=== PATIENT | male | born 1950 | race Caucasian/White ===

== ENCOUNTER → 2016-07-29 | Outpatient (CLI) | payer MEDICARE ==
--- NOTE | 2016-07-29 12:12 | NM ---
EXAMINATION TYPE: NM stress cardiolite complete DATE OF EXAM: 07/29/2016 12:04 PM COMPARISON: NONE HISTORY: Abnormal EKG, chest pain TECHNIQUE: After the intravenous administration of 10.3 mCi Tc 99m Sestamibi - Rest images obtained 0825 minutes post injection. The patient exercised using a FRANCISCO J protocol and 1 minute prior to pea k exercise was injected with 27.3 mCi Tc 99m Sestamibi - Stress images obtained 0957 minutes post inj ection. FINDINGS: Targeted heart rate was achieved during performance of the study. Review of stress and rest SPECT stephanie ges demonstrates no distinct perfusion abnormality. Gated analysis shows normal wall motion with an estimated left ventricular ejection fraction of 56 %. IMPRESSION: No scintigraphic evidence for reversible ischemia
--- NOTE | 2016-07-29 12:35 | EST ---
DATE OF SERVICE: 07/29/2016 AGE: 65Y SEX: M HT: 5'8" WT: 178 lbs. Protocol Holden: X Other: Cardiolite Stage: I Dur. of Exercise: 3 minutes *Heart Rate Blood Pressure *Rest: 74 Rest: 131/78 * *Max. Achieved: 152 Maximum BP: 157/78 85% PMHR: 132 100% PMHR: 155 *METS: 4.4 INDICATIONS: Abnormal EKG. MEDICATIONS: Baseline EKG revealed normal sinus rhythm without significant ST-T changes. Patient walked on it standard Holden protocol for 3 minutes, achieved a maximum heart rate of 152 beats per minute. Developed fatigue and shortness of breath, but did not have any angina or arrhythmia. His exercise capacity was limited. EKG did not reveal any ST segment changes to indicate ischemia. There was some baseline artifact noted. At 2 minutes into exercise, there were upsloping ST segment changes involving the inferolateral leads and possibility of this being ischemia cannot be totally excluded. FINAL IMPRESSION: Limited exercise capacity with a borderline positive stress test by EKG criteria without subjective symptoms of angina. The nuclear scan results, which are more pertinent, will be reported by the radiologist.
== END | disposition home or self-care (01) ==
LOC: RADNMMAIN 08:02
PROVIDERS: ATTEND Family Medicine
DX: R94.39 Abnormal result of other cardiovascular function study (principal); R94.31 Abnormal electrocardiogram [ECG] [EKG]; R07.9 Chest pain, unspecified
CPT/HCPCS: 93017; 78452; A9500

== ENCOUNTER → 2016-09-28 | Outpatient (CLI) | payer MEDICARE ==
--- NOTE | 2016-09-28 09:58 | CT ---
EXAMINATION TYPE: CT sinus wo con DATE OF EXAM: 09/28/2016 COMPARISON: NONE HISTORY: Sinusitis CT DLP: 673.7 mGycm. Automated Exposure Control for Dose Reduction was Utilized. TECHNIQUE: CT scan of the sinuses is performed without contrast, axial images are obtained, coronal r eformatted images are also reviewed. FINDINGS: There is a tiny mucous retention cyst or polyp within the right maxillary sinus. Very mild mucosal thickening involving the ethmoid air cells. Frontal sinus has a normal development and aerati on. There is minimal mucosal thickening involving the sphenoid sinus. The ostiomeatal complex is patent bilaterally on the coronal images. Visualized portion of mastoid air cells show no abnormal opacification. The globes are intact bilate rally. IMPRESSION: 1. Minimal Changes of chronic sinusitis.
== END | disposition home or self-care (01) ==
LOC: RADCTMAIN 08:25
PROVIDERS: ATTEND Otolaryngology
DX: J32.9 Chronic sinusitis, unspecified (principal)
CPT/HCPCS: 70486

== ENCOUNTER 2016-11-19 16:57 | Emergency (ER) | payer MEDICARE ==
[2016-11-19 17:14] VITALS: BP 137/95; PULSE 82; RESP 16; TEMP 97.6
--- NOTE | 2016-11-19 17:42 | ED ---
General Adult HPI - General Chief complaint: Headache Stated complaint: Headache Time Seen by Provider: 11/19/16 17:17 Source: patient, RN notes reviewed, old records reviewed Mode of arrival: ambulatory Limitations: no limitations - History of Present Illness Initial comments: patient 65-year-old male who presents emergency room today with chief complaint of headache on and off over the last 2 months. Patient does admit that he's been expressing some headaches to both left and right sides of his head. He states that they come and go. He states they are becoming more consistent. He states he has seen his ENT doctor thinking that they were related sinuses. States he was referred to neurology for these headaches. He states he is scheduled to have a MRI next week. He states that headaches seem to be worse this morning. He states around the left side of the temp oral area shot over to the right. He states he feels the pressure on top of his head. He states that him it feels like sinus type pressure. He denies any drainage or discharge. He denies any other complaints. States he has been to his eye doctor as well. Patient denies any recent fever, chills, shortness of breath, chest pain, back pain, abdominal pain, nausea or vomiting, numbness or tingling , dysuria or hematuria, constipation or diarrhea, visual changes, or any other complaints. - Related Data Home Medications Medication Instructions Recorded Confirmed Acetaminophen [Tylenol] 500 mg PO Q4-6H PRN 11/19/16 11/19/16 Naproxen 500 mg PO Q6HR 11/19/16 11/19/16 Allergies Allergy/AdvReac Type Severity Reaction Status Date / Time weeds Allergy Cough Uncoded 11/19/16 17:15 Review of Systems ROS Statement: Those systems with pertinent positive or pertinent negative responses have been documented in the HPI. ROS Other: All systems not noted in ROS Statement are negative. Past Medical History Past Medical History: No Reported History History of Any Multi-Drug Resistant Organisms: None Reported Past Surgical History: Tonsillectomy Past Psychological History: No Psychological Hx Reported Smoking Status: Never smoker Past Alcohol Use History: None Reported Past Drug Use History: None Reported General Exam - General Exam Comments Initial Comments: General: The patient is awake and alert, in no distress, and does not appear acutely ill. Eye: Pupils are equal, round and reactive to light, extra-ocular movements are intact. No nystagmus. There is normal conjunctiva bilaterally. No signs of icterus. Ears, nose, mouth and throat: There are moist mucous membranes and no oral lesions. Neck: The neck is supple, there is no tenderness or JVD. Cardiovascular: There is a regular rate and rhythm. No murmur, rub or gallop is appreciated. Respiratory: Lungs are clear to auscultation, respirations are non-labored, breath sounds are equal. No wheezes, stridor, rales, or rhonchi. Gastrointestinal: Soft, non-distended, non-tender abdomen without masses or organomegaly noted. There is no rebound or guarding present. No CVA tenderness. Bowel sounds are unremarkable. Musculoskeletal: Normal ROM, no tenderness. Strength 5/5. Sensation intact. Pulses equal bilaterally 2+. Neurological: A&O x 3. CN II-XII intact, There are no obvious motor or sensory deficits. Coordination appears grossly intact. Speech is normal. normal finger nose testing. Normal rapid alternating movements. Strength 5/5 bilaterally both upper and lower extremity's. Normal gait. Skin: Skin is warm and dry and no rashes or lesions are noted. Psychiatric: Cooperative, appropriate mood & affect, normal judgment. Limitations: no limitations Course Vital Signs 11/19/16 17:11 Temperature 97.6 F Pulse Rate 82 Respiratory 16 Rate Blood Pressure 137/95 O2 Sat by Pulse 97 Oximetry Medical Decision Making - Medical Decision Making Case discussed in detail with attending physician Dr. Conway. Patient reexamined at this time shows no signs of distress resting comfortably. patient was offered Toradol shot here in the emergency room he has declined. He states he will continue with his naproxen and also taking Tylenol at home.Patient's CT of the head is negative for any acute abnormalities results are discussed with the patient. Patient will be discharged home advised to follow-up with his neurologist. Disposition Clinical Impression: Headache Disposition: HOME SELF-CARE Condition: Good Instructions: Acute Headache (ED) Additional Instructions: Please use medication as discussed. Please follow-up with neurologist/family doctor in the next 2 days of symptoms have not improved. Please return to emergency room if the symptoms increase or worsen or for any other concerns. Referrals: Mónica Walls DO [Primary Care Provider] - 1-2 days Edgardo Downing MD [STAFF PHYSICIAN] - 1-2 days Time of Disposition: 19:03
--- NOTE | 2016-11-19 18:46 | CT ---
EXAMINATION TYPE: CT brain wo con DATE OF EXAM: 11/19/2016 HISTORY: Patient complains of chronic headache. CT DLP: 1103 mGycm. Automated Exposure Control for Dose Reduction was Utilized. TECHNIQUE: CT scan of the head is performed without contrast. COMPARISON: None. FINDINGS: There is no acute intracranial hemorrhage or midline shift identified. There is diffuse v entricular and sulcal prominence consistent with diffuse age-related cerebral atrophy. The globes ar e intact and the visualized sinuses are clear. IMPRESSION: No acute intracranial hemorrhage or midline shift. There is mild to moderate diffuse ag e-related cerebral atrophy noted.
== END 2016-11-19 19:14 | disposition home or self-care (01) ==
LOC: EC 16:57
DX: R51 Headache (principal); Z79.1 Long term (current) use of non-steroidal anti-inflammatories (NSAID); Z91.09 Other allergy status, other than to drugs and biological substances
CPT/HCPCS: 70450; 99284

== ENCOUNTER → 2016-11-23 | Outpatient (CLI) | payer MEDICARE ==
[2016-11-23 14:15] LABS: Blood Urea Nitrogen 15 mg/dL (9-20); Non-African American GFR(MDRD) >60 (>60 ml/min/1.73 sqM)
== END | disposition home or self-care (01) ==
LOC: LABWHC1 13:02
PROVIDERS: ATTEND Psychiatry & Neurology Neurology
DX: Z01.812 Encounter for preprocedural laboratory examination (principal); R51 Headache
CPT/HCPCS: 36415; 82565; 84520

== ENCOUNTER → 2016-11-28 | Outpatient (CLI) | payer MEDICARE ==
--- NOTE | 2016-11-28 14:44 | MR ---
EXAMINATION TYPE: MR brain wo/w con DATE OF EXAM: 11/28/2016 COMPARISON: CT brain dated 11/19/2016 HISTORY: Chronic headaches TECHNIQUE: Multiplanar, multisequence images of the brain and brainstem is performed without and with IV contras t, utilizing 7.5 mL intravenous Gadavist . FINDINGS: Diffusion weighted images demonstrate no evidence of a recent infarct or other diffusion ab normality. Few scattered T2/FLAIR hyperintense foci are seen within the subcortical white matter. No abnormal enhancement of these foci. There is no extra-axial fluid collection. The ventricular system and cisternal spaces are normal in size and appearance. The brain volume is age appropriate. Midline structures demonstrate normal morphology. The craniocervical junction appears within normal limits. Post contrast images demonstrate no abnormal enhancement. The dural venous sinuses appear pa tent. Minimal mucosal thickening is seen within the ethmoid sinuses. The remaining visualized sinuses are clear and the globes are intact. IMPRESSION: 1. Few nonspecific, nonenhancing white matter changes which may relate to sequela of microangiopathy or can be seen in migraines. No intracranial mass, enhancement, intracranial hemorrhage or acute terr itorial infarct. 2. Minimal ethmoidal paranasal sinus disease.
== END | disposition home or self-care (01) ==
LOC: RADMRIMAIN 12:43
PROVIDERS: ATTEND Psychiatry & Neurology Neurology
DX: R51 Headache (principal); Z91.09 Other allergy status, other than to drugs and biological substances
CPT/HCPCS: 70553; A9581

== ENCOUNTER → 2017-01-10 | Outpatient (CLI) | payer MEDICARE | END | disposition home or self-care (01) | LOC: LABWHC1 15:28 | PROVIDERS: ATTEND Otolaryngology | DX: R52 Pain, unspecified (principal) | CPT/HCPCS: 36415; 85652; 86038 ==

== ENCOUNTER → 2019-02-01 | Outpatient (CLI) | payer MEDICARE ==
--- NOTE | 2019-02-01 12:39 | CTL ---
EXAMINATION TYPE: CT Low Dose Lung DATE OF EXAM ORDERED: 02/01/2019 HISTORY: . Lung cancer screening CT DLP: [address] CTDI: 2.11 mGy Automated exposure control for dose reduction was used. SCREENING VISIT: COMPARISON: None TECHNIQUE: Low dose computed tomography scan was performed through the chest at 1 mm thick sections a nd reconstructed images in the coronal plane at [address] DIAGNOSTIC QUALITY: Satisfactory FINDINGS: LUNG NODULES: None. There is a 3 mm subpleural nodule right upper lobe. There is a 2 mm left upper lobe pulmonary nodule. Both have a benign appearance. LUNGS: Groundglass changes at the lung bases suggestive of atelectasis. There is diffuse emphysematous pierce es. No consolidative pneumonia. PLEURAL SPACE: No pleural calcification. There is pleural thickening. No evidence of pneumothorax. HEART: Coronary artery calcification noted. Atherosclerotic change aorta. OTHER FINDINGS: Hypodensity within the liver is too small to characterize. Scoliosis with severe degenerative disc di sease is seen. Multiple rib deformities are noted in the left which appear to be chronic. IMPRESSION: 1. Bilateral sub-5 mm pulmonary nodules. 2. Correlate for COPD 3. Coronary artery calcification. 4. Chronic rib deformities on the left. 5. indeterminate hepatic lesion. 6. Right thyroid nodule correlate with thyroid ultrasound. FOLLOW UP CT CHEST RECOMMENDATION: Follow-up in one year recommended. CT LUNG RAD: Lung-Rad 2 Benign Appearance or Behavior
== END | disposition home or self-care (01) ==
LOC: RADCTMAIN 11:22
PROVIDERS: ATTEND Family Medicine
DX: J44.9 Chronic obstructive pulmonary disease, unspecified (principal); R91.8 Other nonspecific abnormal finding of lung field; I25.10 Atherosclerotic heart disease of native coronary artery without angina pectoris; M95.4 Acquired deformity of chest and rib; Z87.891 Personal history of nicotine dependence

== ENCOUNTER → 2019-03-28 | Outpatient (CLI) | payer MEDICARE ==
--- NOTE | 2019-03-29 09:47 | NM ---
EXAMINATION TYPE: NM thyroid image w uptake DATE OF EXAM: 03/29/2019 COMPARISON: NONE HISTORY: Thyroid nodule TECHNIQUE: Thyroid iodine uptake is calculated and images performed after the oral administration of 315 uCi 1-123 Capsule. FINDINGS: There is a large cold defect involving the majority lower portion. Left thyroid gland is ho mogeneous. The 4 hour iodine uptake is calculated at 7.3% (normal range 8-14%). The 24-hour iodine u ptake is calculated at 13.3% (normal range 15-35%). IMPRESSION: 1. Large cold defect mid and lower pole right thyroid lobe recommend ultrasound. 2. Correlate for hypothyroidism
== END | disposition home or self-care (01) ==
LOC: RADNMMAIN 08:41
PROVIDERS: ATTEND Family Medicine
DX: E07.89 Other specified disorders of thyroid (principal); E04.1 Nontoxic single thyroid nodule
CPT/HCPCS: 78014; A9516

== ENCOUNTER 2019-04-05 09:00 | Day surgery (SDC) | payer MEDICARE ==
[2019-04-05 09:41] VITALS: TEMP 98.3
[2019-04-05 11:15] VITALS: BP 133/84; PULSE 75; RESP 16
--- NOTE | 2019-04-05 12:23 | US ---
ULTRASOUND GUIDED FNA THYROID BIOPSY: CLINICAL HISTORY: Right thyroid nodule FINDINGS: The procedure was explained to the patient. The risks, complications, benefits and alternatives were discussed and any questions were answered. Informed consent was obtained. Patient was placed supin e on the ultrasound table and prepped and draped in the usual sterile fashion. Utilizing a 25 gauge needle, five passes were made into the requested right thyroid nodule. Patient was stable throughout the procedure. Pathology is pending. All elements of maximal barrier technique were utilized. IMPRESSION: 1. Successful ultrasound guided FNA thyroid biopsy.
== END 2019-04-05 11:02 | disposition home or self-care (01) ==
LOC: RADPROMAIN 09:00
PROVIDERS: ATTEND Family Medicine
DX: E04.1 Nontoxic single thyroid nodule (principal)
CPT/HCPCS: 10005; 88173; 88305

== ENCOUNTER 2021-02-18 20:20 | Inpatient (IN) | payer MEDICARE ==
--- NOTE | 2021-02-18 20:46 | ED ---
General Adult HPI - General Chief complaint: Abdominal Pain Stated complaint: Constipation Time Seen by Provider: 02/18/21 20:33 Source: patient, family Mode of arrival: ambulatory Limitations: no limitations - History of Present Illness Initial comments: Dictation was produced using [employer] dictation software. please excuse any grammatical, word or spelling errors. Chief Complaint: 70-year-old male with past medical history of hypertension and hypercholesterolemia presents to the emergency department for abdominal pain presyncope History of Present Illness: Patient is a 70-year-old male he states that he didn't with constipation for the last 48 hours. Patient states he feels like it is hard stools. He tried to administer an enema to himself with no success or resolution of his symptoms. States it is constant achy suprapubic abdominal pain. He did have a bowel movement today. 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 He states that he was a little anxious today but also was so lightheaded that he was unable to stand for the whole program. Denies any fevers. No history of abdominal surgery. No numbness and paresthesias to the arms or legs. Patient rates his pain score as a 9 on a 10 scale. Denies any history of diverticulitis. No blood or mucus in his stool. Does complain of mild nausea. The ROS documented in this emergency department record has been reviewed and confirmed by me. Those systems with pertinent positive or negative responses have been documented in the HPI. All other systems are other negative and/or noncontributory. PHYSICAL EXAM: General Impression: Alert and oriented x3, not in acute distress HEENT: Normocephalic atraumatic, extra-ocular movements intact, pupils equal and reactive to light bilaterally, mucous membranes moist. Cardiovascular: Heart regular rate and rhythm Chest: Able to complete full sentences, no retractions, no tachypnea Abdomen: abdomen soft, palpatory tenderness to the suprapubic area, nontympanitic, non-distended, no organomegaly Musculoskeletal: Pulses present and equal in all extremities, no peripheral edema Motor: no focal deficits noted Neurological: CN II-XII grossly intact, no focal motor or sensory deficits noted Skin: Intact with no visualized rashes Psych: Normal affect and mood ED course: 70-year-old Male presents to the emergency department for abdominal pain. Vital signs upon arrival shows temperature 100.7, heart rate of 123, not hypotensive. Laboratory evaluation obtained. Leukocytosis 17.3 with neutrophils 60.0. [place] bolic panel shows mild acidosis. Lactic acidosis 3.3. Computed tomography scan shows sigmoid diverticulitis with associated 3 cm abscess. Case is discussed with general surgeon who is willing to be on consult. Patient admitted to Dr. Walls. Patient reevaluated at bedside. He is in stable medical condition. Patient having difficulty urinating. Barros catheter placed for urinary retention. EKG interpretation: Ventricular rate 119, sinus tachycardia,. Interval 120, QRS 86, QTC 599. No UT prolongation,, no ST or T-wave changes noted. - Related Data Home Medications Medication Instructions Recorded Confirmed Atorvastatin [Lipitor] 10 mg PO HS 03/19/19 02/18/21 Acetaminophen [Tylenol Extra 500 mg PO HS 02/18/21 02/18/21 Strength] Docusate Sodium [Dok] 100 mg PO HS 02/18/21 02/18/21 Allergies Allergy/AdvReac Type Severity Reaction Status Date / Time No Known Allergies Allergy Verified 02/18/21 22:15 Review of Systems ROS Statement: Those systems with pertinent positive or pertinent negative responses have been documented in the HPI. ROS Other: All systems not noted in ROS Statement are negative. Past Medical History Past Medical History: Hyperlipidemia, Thyroid Disorder History of Any Multi-Drug Resistant Organisms: None Reported Past Surgical History: Tonsillectomy Past Psychological History: No Psychological Hx Reported Smoking Status: Never smoker Past Alcohol Use History: Occasional Past Drug Use History: None Reported General Exam Limitations: no limitations Course Vital Signs 02/18/21 20:24 Temperature 100.7 F H Pulse Rate 123 H Respiratory 24 Rate Blood Pressure 119/59 O2 Sat by Pulse 94 L Oximetry Medical Decision Making - Lab Data Result diagrams: 02/18/21 21:10 02/18/21 21:10 Lab Results 02/18/21 02/18/21 02/18/21 Range/Units 21:10 21:10 21:10 WBC 17.3 H (3.8-10.6) k/uL RBC 4.67 (4.30-5.90) m/uL Hgb 15.5 (13.0-17.5) gm/dL Hct 45.4 (39.0-53.0) % MCV 97.2 (80.0-100.0) fL MCH 33.3 (25.0-35.0) pg MCHC 34.3 (31.0-37.0) g/dL RDW 12.7 (11.5-15.5) % Plt Count 199 (150-450) k/uL MPV 9.1 Neutrophils % 92 % Lymphocytes % 3 % Monocytes % 3 % Eosinophils % 1 % Basophils % 0 % Neutrophils # 16.0 H (1.3-7.7) k/uL Lymphocytes # 0.5 L (1.0-4.8) k/uL Monocytes # 0.6 (0-1.0) k/uL Eosinophils # 0.2 (0-0.7) k/uL Basophils # 0.0 (0-0.2) k/uL Sodium 136 L (137-145) mmol/L Potassium 4.2 (3.5-5.1) mmol/L Chloride 105 (98-107) mmol/L Carbon Dioxide 21 L (22-30) mmol/L Anion Gap 10 mmol/L BUN 12 (9-20) mg/dL Creatinine 0.67 (0.66-1.25) mg/dL Est GFR (CKD-EPI)AfAm >90 (>60 ml/min/1.73 sqM) Est GFR (CKD-EPI)NonAf >90 (>60 ml/min/1.73 sqM) Glucose 121 H (74-99) mg/dL Plasma Lactic Acid Manuel 3.3 H* (0.7-2.0) mmol/L Calcium 9.7 (8.4-10.2) mg/dL Magnesium 1.9 (1.6-2.3) mg/dL Total Bilirubin 0.8 (0.2-1.3) mg/dL AST 36 (17-59) U/L ALT 32 (4-49) U/L Alkaline Phosphatase 53 (38-126) U/L Total Protein 7.0 (6.3-8.2) g/dL Albumin 4.3 (3.5-5.0) g/dL Disposition Clinical Impression: Diverticulitis Disposition: ADMITTED IP TO THIS HOSP Condition: Fair Referrals: Mónica Walls DO [Primary Care Provider] - 1-2 days
[2021-02-18 21:21] LABS: Basophils % (A) 0 %; Eosinophils # (A) 0.2 k/uL (0-0.7); Eosinophils % (A) 1 %; HCT 45.4 % (39.0-53.0); HGB 15.5 gm/dL (13.0-17.5); Lymphocytes # (A) 0.5 k/uL (1.0-4.8); Lymphocytes % (A) 3 %; MCH 33.3 pg (25.0-35.0); MCHC 34.3 g/dL (31.0-37.0); MCV 97.2 fL (80.0-100.0); Mean Platelet Volume 9.1; Monocytes # (A) 0.6 k/uL (0-1.0); Monocytes % (A) 3 %; Neutrophils % (A) 92 %; Platelet Count 199 k/uL (150-450); RBC 4.67 m/uL (4.30-5.90); RDW 12.7 % (11.5-15.5); WBC 17.3 k/uL (3.8-10.6)
[2021-02-18 21:31] LABS: ALT 32 U/L (4-49); AST 36 U/L (17-59); African American GFR (CKD) >90 (>60 ml/min/1.73 sqM); Albumin 4.3 g/dL (3.5-5.0); Alkaline Phosphatase 53 U/L (38-126); Anion Gap 10 mmol/L; Blood Urea Nitrogen 12 mg/dL (9-20); Calcium 9.7 mg/dL (8.4-10.2); Carbon Dioxide 21 mmol/L (22-30); Chloride 105 mmol/L (98-107); Glucose 121 mg/dL (74-99); Magnesium 1.9 mg/dL (1.6-2.3); Non-African American GFR(CKD) >90 (>60 ml/min/1.73 sqM); Potassium 4.2 mmol/L (3.5-5.1); Sodium 136 mmol/L (137-145); Total Bilirubin 0.8 mg/dL (0.2-1.3)
[2021-02-18] MEDS ORDERED: MORPHINE SULFATE 4 MG/ML SYRINGE IV STA (22:38)
[2021-02-18] MEDS ORDERED: ACET/COD 300 MG/30 MG STARTER PACK 6 TAB BTL PO STA (22:41)
[2021-02-18] MEDS ORDERED: PIPERACILLIN-TAZOBACTAM 3.375 GM in SODIUM CHLORIDE 0.9% 100 ML IVPB STA (22:51)
[2021-02-18] MEDS ORDERED: SODIUM CHLORIDE 0.9% 1,000 ML IV STA (22:51)
--- NOTE | 2021-02-18 22:56 | CT ---
EXAMINATION TYPE: CT abdomen pelvis w con DATE OF EXAM: 02/18/2021 COMPARISON: None HISTORY: pain CT DLP: 1147.3 mGycm Automated exposure control for dose reduction was used. CONTRAST: Performed with IV Contrast, patient injected with 100 mL of Isovue 300. Images obtained from the diaphragm to the floor the pelvis with IV contrast. Lung bases are clear of consolidation. There is mild subsegmental atelectasis at the posterior lung b ases. Heart size is normal. There is no pericardial effusion. There is hiatal hernia. There are small hepatic cysts that measure up to 1 cm. Spleen is intact. There is no pancreatic mass. The stomach is otherwise intact. Gallbladder appears normal. The bile ducts are not dilated. There is no adrenal mass. Kidneys have normal size and contour. There is no hydronephrosis. Ureters a re not dilated. There is 3 cm cortical cyst in the anterior left kidney. There is no retroperitoneal adenopathy. Bladder distends smoothly. There is no inguinal hernia. There is mild prostate calcificat ion. There are numerous diverticula in the sigmoid colon. There is fat stranding and possible extralu clarence collection posterior to the distal sigmoid colon. There is no evidence of a bowel obstruction. Appendix not seen with certainty. No sign of thickened appendix. There is no evidence of free air. There is no ascites. There is no mesenteric edema. There is a moder ate lumbar levorotoscoliosis with subluxation deformity. No compression fracture. Bony pelvis is inta ct. IMPRESSION: Sigmoid diverticulosis with possible posterior peridiverticular abscess measuring 3 cm involving a di stal sigmoid colon on the posterior wall. There is some fat stranding and fluid in the pelvis. Hepatic and renal cysts. No renal obstruction. No significant constipation.
[2021-02-18] MEDS ORDERED: NALOXONE 0.4 MG/ML 1 ML VIAL IV PRN (23:09)
[2021-02-19] MEDS: SODIUM CHLORIDE 0.9% 1,000 ML IV SCH ×3 (00:15→16:06)
[2021-02-19] MEDS: KETOROLAC 30 MG/ML 1 ML VIAL IVP PRN ×2 (01:39→08:31)
[2021-02-19 02:41] LABS: Appearance,Urine Clear (Clear); Bilirubin,Urine Negative (Negative); Blood,Urine Negative (Negative); Color,Urine Yellow; Glucose,Urine (UA) Negative (Negative); Ketones,Urine Negative (Negative); Leukocyte Esterase,Urine Negative (Negative); Nitrite,Urine Negative (Negative); PH, Urine 7.5 (5.0-8.0); Protein,Urine Trace (Negative); Specific Gravity,Urine 1.041 (1.001-1.035); Urobilinogen,Urine <2.0 mg/dL (<2.0)
[2021-02-19] MEDS: PIPERACILLIN-TAZOBACTAM 3.375 GM in SODIUM CHLORIDE 0.9% 100 ML IVPB SCH ×2 (08:30→17:19)
--- NOTE | 2021-02-19 09:59 | P.GSCN ---
History of Present Illness Consult date: 02/19/21 Reason for Consult: Sigmoid diverticulitis History of present illness: 70-year-old male presents to the ER yesterday with complaints of lower abdominal pain that began 2 days before. Says he felt like he was constipated. Tried multiple stool softeners and even an enema with no improvement. Patient was found to have a white blood cell count of 17. His lactic acid is elevated and has remained elevated since his admission. Patient has been tachycardic and febrile. He is somewhat tachypneic and has a pulse ox 93% on 4 L. Covid negative. No history of similar events. Patient does have a history of a colon polyp found on his first colonoscopy at around age 55. No subsequent colonoscopies. This morning patient states he woke up with more pain after he took a short nap overnight. Pain now is in the right lower quadrant. The CAT scan was reviewed. CAT scan shows evidence of perforation distal sigmoid colon into the retroperitoneum but this is on the left side of his pelvis. Review of Systems The patient denies any acute changes in vision or hearing, no dysphagia or odynophagia, no chest pain or shortness of breath, no dysuria or hematuria, no headache, no runny nose, no rectal bleeding or melena, no unexplained weight loss Past Medical History Past Medical History: GERD/Reflux, Hyperlipidemia, Osteoarthritis (OA), Thyroid Disorder History of Any Multi-Drug Resistant Organisms: None Reported Past Surgical History: Tonsillectomy Past Psychological History: No Psychological Hx Reported Smoking Status: Former smoker Past Alcohol Use History: Occasional Past Drug Use History: None Reported - Past Family History Father Additional Family Medical History / Comment(s): leaky heart vavle Mother Family Medical History: Cancer Additional Family Medical History / Comment(s): lung ca. never smoked Medications and Allergies Home Medications Medication Instructions Recorded Confirmed Type Atorvastatin [Lipitor] 10 mg PO HS 03/19/19 02/18/21 History Acetaminophen [Tylenol Extra 500 mg PO HS 02/18/21 02/18/21 History Strength] Docusate Sodium [Dok] 100 mg PO HS 02/18/21 02/18/21 History Allergies Allergy/AdvReac Type Severity Reaction Status Date / Time No Known Allergies Allergy Verified 02/18/21 22:15 Surgical - Exam Vital Signs Temp Pulse Resp BP Pulse Ox 100.7 F H 123 H 24 119/59 94 L 02/18/21 20:24 02/18/21 20:24 02/18/21 20:24 02/18/21 20:24 02/18/21 20:24 Physical exam: General: Well-developed, well-nourished HEENT: Normocephalic, sclerae nonicteric Abdomen: Slightly distended, lower abdominal tenderness right lower quadrant with rebound and guarding present Extremities: No edema Neuro: Alert and oriented Results - Labs 02/18/21 21:10 02/18/21 21:10 Abnormal Lab Results - Last 24 Hours (Table) 02/18/21 02/18/21 02/18/21 Range/Units 21:10 21:10 21:10 WBC 17.3 H (3.8-10.6) k/uL Neutrophils # 16.0 H (1.3-7.7) k/uL Lymphocytes # 0.5 L (1.0-4.8) k/uL Sodium 136 L (137-145) mmol/L Carbon Dioxide 21 L (22-30) mmol/L Glucose 121 H (74-99) mg/dL Plasma Lactic Acid Manuel 3.3 H* (0.7-2.0) mmol/L Ur Specific [place] (1.001-1.035) Urine Protein (Negative) 02/19/21 02/19/21 02/19/21 Range/Units 00:27 02:25 04:51 WBC (3.8-10.6) k/uL Neutrophils # (1.3-7.7) k/uL Lymphocytes # (1.0-4.8) k/uL Sodium (137-145) mmol/L Carbon Dioxide (22-30) mmol/L Glucose (74-99) mg/dL Plasma Lactic Acid Manuel 2.7 H* 3.2 H* (0.7-2.0) mmol/L Ur Specific [place] 1.041 H (1.001-1.035) Urine Protein Trace H (Negative) Diabetes panel 02/18/21 Range/Units 21:10 Sodium 136 L (137-145) mmol/L Potassium 4.2 (3.5-5.1) mmol/L Chloride 105 (98-107) mmol/L Carbon Dioxide 21 L (22-30) mmol/L BUN 12 (9-20) mg/dL Creatinine 0.67 (0.66-1.25) mg/dL Glucose 121 H (74-99) mg/dL Calcium 9.7 (8.4-10.2) mg/dL AST 36 (17-59) U/L ALT 32 (4-49) U/L Alkaline Phosphatase 53 (38-126) U/L Total Protein 7.0 (6.3-8.2) g/dL Albumin 4.3 (3.5-5.0) g/dL Calcium panel 02/18/21 Range/Units 21:10 Calcium 9.7 (8.4-10.2) mg/dL Albumin 4.3 (3.5-5.0) g/dL Pituitary panel 02/18/21 Range/Units 21:10 Sodium 136 L (137-145) mmol/L Potassium 4.2 (3.5-5.1) mmol/L Chloride 105 (98-107) mmol/L Carbon Dioxide 21 L (22-30) mmol/L BUN 12 (9-20) mg/dL Creatinine 0.67 (0.66-1.25) mg/dL Glucose 121 H (74-99) mg/dL Calcium 9.7 (8.4-10.2) mg/dL Adrenal panel 02/18/21 Range/Units 21:10 Sodium 136 L (137-145) mmol/L Potassium 4.2 (3.5-5.1) mmol/L Chloride 105 (98-107) mmol/L Carbon Dioxide 21 L (22-30) mmol/L BUN 12 (9-20) mg/dL Creatinine 0.67 (0.66-1.25) mg/dL Glucose 121 H (74-99) mg/dL Calcium 9.7 (8.4-10.2) mg/dL Total Bilirubin 0.8 (0.2-1.3) mg/dL AST 36 (17-59) U/L ALT 32 (4-49) U/L Alkaline Phosphatase 53 (38-126) U/L Total Protein 7.0 (6.3-8.2) g/dL Albumin 4.3 (3.5-5.0) g/dL Assessment and Plan (1) Diverticulitis Narrative/Plan: 70-year-old male with perforated sigmoid diverticulitis. The patient appears ill and his exam suggests that there has been progression of his illness since the CAT scan was performed. Looking at the CAT scan he should not have any significant right lower quadrant pain but now his pain is centered there. I suspect a larger perforation has occurred. Patient remains tachycardic and febrile. He is now somewhat hypoxic. His white blood cell count again was elevated on admission repeat is pending. His lactic acid has not returned to normal. Patient meeting criteria for sepsis certainly at this time. Clinical scenario discussed in detail with the patient. Dr. Walls also present for much of the encounter. Recommend that we proceed with exploratory laparotomy with sigmoid colectomy and end colostomy at this time. Risks of bleeding, infection, progressive sepsis, abscess, bladder bowel and ureteral injury, hernia, ostomy complications, respiratory and cardiac complications. Patient understands and wishes to proceed. Current Visit: Yes Status: Acute Code(s): K57.92 - DVTRCLI OF INTEST, PART UNSP, W/O PERF OR ABSCESS W/O BLEED SNOMED Code(s): 977374985
[2021-02-19] MEDS ORDERED: IV FLUID CONTINUATION 800 ML IV ONE (10:37)
[2021-02-19] MEDS ORDERED: fentaNYL (PF) 50 MCG/ML 2 ML AMP IVP ONE ×2 (10:44→10:53)
[2021-02-19] MEDS ORDERED: ONDANSETRON 4 MG/2 ML VIAL IVP ONE (11:00)
[2021-02-19] MEDS ORDERED: metroNIDAZOLE-NS PMX 500 MG in SALINE 1 100ML.BAG IVPB STA (11:05)
[2021-02-19] MEDS ORDERED: HEPARIN SODIUM,PORCINE/PF 5,000 UNIT/0.5 ML SYRINGE SQ ONE (11:07)
[2021-02-19] MEDS ORDERED: HEPARIN SODIUM,PORCINE 5,000 UNIT/ML 1 ML VIAL SQ ONE (11:10)
[2021-02-19] MEDS ORDERED: GLYCOPYRROLATE 0.2 MG/ML 2 ML VIAL ONE (11:25)
[2021-02-19] MEDS ORDERED: SUCCINYLCHOLINE CHLORIDE 100 MG/5 ML SYR IV ONE (11:25)
[2021-02-19] MEDS ORDERED: HYDROmorphone (PF) 1 MG/ML ONE (11:25)
[2021-02-19] MEDS ORDERED: PHENYLEPHRINE-0.9% NACL SYG 1,000 MCG/10 ML SYRINGE ONE (11:25)
[2021-02-19] MEDS ORDERED: ROCURONIUM 10 MG/ML (5 ML VIAL) IV ONE (11:25)
[2021-02-19] MEDS ORDERED: LIDOCAINE 1% INJ 10MG/ML (20 ML MDV) ONE (11:25)
[2021-02-19] MEDS ORDERED: MIDAZOLAM 2 MG/2 ML VIAL ONE (11:25)
[2021-02-19] MEDS ORDERED: fentaNYL (PF) 50 MCG/ML 2 ML AMP ONE (11:25)
[2021-02-19] MEDS ORDERED: PROPOFOL 10 MG/ML 20 ML VIAL IV ONE (11:25)
[2021-02-19] MEDS ORDERED: NEOSTIGMINE 1 MG/ML 10 ML VIAL ONE (11:25)
[2021-02-19] MEDS ORDERED: LACTATED RINGERS 1,000 ML IV ONE ×4 (12:01→13:14)
--- NOTE | 2021-02-19 14:01 | P.OP ---
Date of Procedure: 02/19/21 Procedure(s) Performed: PREOPERATIVE DIAGNOSIS: Perforated sigmoid diverticulitis POSTOPERATIVE DIAGNOSIS: Same PROCEDURE: Sigmoid colectomy with end colostomy SURGEON: Carmita EBL: 50 mL ANESTHESIA: General COMPLICATIONS: None OPERATIVE PROCEDURE: Patient place in the operative table in the supine position. The patient was placed under general anesthesia. The abdomen was prepped and draped in usual sterile fashion. A vertical incision was made extending from the suprapubic region above the umbilicus. The fascia was divided as well. The patient had a fascial defect at the umbilicus that was incorporated into our incision and later closed with our fascial closure. Upon entrance into the peritoneal cavity purulent fluid was identified. As we inspected the pelvis the patient had a large amount of jose stool around the bowel loops. Much of the stool was manually evacuated. The Bookwalter ret ractor was utilized. The site of perforation was identified in the distal sigmoid colon. I divided the sigmoid colon proximal to this using a linear 75 stapler. The mesentery was divided at that time using the LigaSure device. Beyond the inflamed segment I divided the distal sigmoid colon using a green load contour stapler. 2 separate 0 Prolene sutures were used on the staple line for future identification. The sigmoid colon was then mobilized further by dividing a portion of mesentery proximally and also dividing the white line of [place]. Once I had enough length on the colon the abdomen was copiously irrigated with 4 L of saline. No further purulence was encountered at that time. A circular incision was made in the left midabdomen. Dissection through the subcutaneous fat and fascia took place using electrocautery. I bluntly entered the perineal cavity and this was further bluntly opened. The bowel was brought out through this defect in the left midabdomen. The midline fascia was then reapproximated using 2 separate double-stranded #1 PDS sutures. The subcutaneous tissues were irrigated. The subcutaneous tissues were closed using 3-0 Vicryl sutures. The skin was then loosely approximated using sonny. 4 separate sites were left open along the midline incision for Aquacel silver wick placement. The ostomy was then addressed. A portion of the pericolonic fat was removed using the LigaSure device. The staple line was then removed using electrocautery. The ostomy was then matured in a [place] fashion using interrupted 3-0 Vicryl sutures. An ostomy appliance was then applied. Sterile dressings were then applied to the midline incision. DISPOSITION: Stable to recovery room
[2021-02-19] MEDS: HYDROmorphone 0.5 MG/0.5 ML SYRINGE IVP ONE ×3 (14:15→14:54)
[2021-02-19] MEDS: ACETAMINOPHEN IV (For NPO) 1,000 MG in EMPTY BAG 1 BAG IVPB SCH ×2 (16:07→20:05)
[2021-02-19 16:22] LABS: HCT 42.9 % (39.0-53.0); HGB 14.3 gm/dL (13.0-17.5); MCH 33.9 pg (25.0-35.0); MCHC 33.3 g/dL (31.0-37.0); MCV 101.6 fL (80.0-100.0); Macrocytosis Slight; Mean Platelet Volume 8.8; Platelet Count 155 k/uL (150-450); RBC 4.22 m/uL (4.30-5.90); RDW 12.9 % (11.5-15.5); WBC 11.7 k/uL (3.8-10.6)
[2021-02-19 17:06] LABS: Band Neutrophils % 33 %; Lymphocytes # (M) 1.64 k/uL (1.0-4.8); Metamyelocytes # (M) 0.23 k/uL (0); Metamyelocytes % 2 %; Monocytes # (M) 0.35 k/uL (0-1.0); Neutrophils % (M) 48 %; Nucleated Red Blood Cells 0 /100 WBC (0-0); Total Cells Counted 200
[2021-02-19] MEDS: HEPARIN SODIUM,PORCINE/PF 5,000 UNIT/0.5 ML SYRINGE SQ SCH (17:19)
[2021-02-19] MEDS: FAMOTIDINE 20 MG/2 ML VIAL IV SCH (20:29)
--- NOTE | 2021-02-19 21:02 | P.HPIM ---
History of Present Illness H&P Date: 02/19/21 Chief Complaint: abdominal pain Jeremy Ridley is a 70 yo M with PMH of HLD, who presented to the ED complaining of 2 day history of worsening abdominal pain. He complains he had been constipated for a few days and noticing constant aching suprapubic pain. He tried laxatives and enema without any improvement so came to the ED. He denies chills, nausea, vomiting. On presentation he was tachycardic and febrile, WBC 17k, lactic 3.3, COVID negative. CT abd/pelvis with sigmoid diverticulitis and fluid pocket. Review of Systems All systems: negative Constitutional: Reports fever, Reports malaise, Denies chills Eyes: denies blurred vision, denies pain Ears, nose, mouth and throat: Denies headache, Denies sore throat Cardiovascular: Denies chest pain, Denies shortness of breath Respiratory: Denies cough Gastrointestinal: Reports abdominal pain, Reports constipation, Reports dyspepsi a, Denies diarrhea, Denies nausea, Denies vomiting Musculoskeletal: Denies myalgias Integumentary: Denies pruritus, Denies rash Neurological: Denies numbness, Denies weakness Psychiatric: Denies anxiety, Denies depression Endocrine: Denies fatigue, Denies weight change Past Medical History Past Medical History: GERD/Reflux, Hyperlipidemia, Osteoarthritis (OA), Thyroid Disorder History of Any Multi-Drug Resistant Organisms: None Reported Past Surgical History: Tonsillectomy Past Psychological History: No Psychological Hx Reported Smoking Status: Former smoker Past Alcohol Use History: Occasional Past Drug Use History: None Reported - Past Family History Father Additional Family Medical History / Comment(s): leaky heart vavle Mother Family Medical History: Cancer Additional Family Medical History / Comment(s): lung ca. never smoked Medications and Allergies Home Medications Medication Instructions Recorded Confirmed Type Atorvastatin [Lipitor] 10 mg PO HS 03/19/19 02/18/21 History Acetaminophen [Tylenol Extra 500 mg PO HS 02/18/21 02/18/21 History Strength] Docusate Sodium [Dok] 100 mg PO HS 02/18/21 02/18/21 History Allergies Allergy/AdvReac Type Severity Reaction Status Date / Time No Known Allergies Allergy Verified 02/19/21 10:36 Physical Exam Vitals: Vital Signs Temp Pulse Pulse Pulse Resp BP BP 12/03/21 20:33 98 F 95 18 96/66 02/19/21 16:21 89 18 87/60 02/19/21 15:32 84 16 92/67 02/19/21 15:17 88 16 100/63 02/19/21 15:01 90 16 86/58 02/19/21 14:46 106 H 16 89/60 02/19/21 14:30 108 H 16 87/61 02/19/21 14:16 102 H 16 84/74 02/19/21 14:01 102 H 16 86/60 02/19/21 13:45 103 H 16 80/61 02/19/21 13:37 99.1 F 107 H 16 103/69 02/19/21 11:02 108 H 87/57 02/19/21 10:45 108 H 18 93/57 02/19/21 10:34 98.7 F 107 H 20 89/50 02/19/21 08:20 99.6 F 124 H 20 102/67 02/19/21 02:50 100.5 F H 115 H 220 H 100/65 02/19/21 00:00 100.9 F H 119 H 20 100/65 02/18/21 23:30 118 H 20 103/65 Pulse Ox 02/19/21 20:33 95 02/19/21 16:21 93 L 02/19/21 15:32 97 02/19/21 15:17 97 02/19/21 15:01 97 02/19/21 14:46 97 02/19/21 14:30 97 02/19/21 14:16 97 02/19/21 14:01 97 02/19/21 13:45 97 02/19/21 13:37 96 02/19/21 11:02 95 02/19/21 10:45 96 02/19/21 10:34 97 02/19/21 08:20 93 L 02/19/21 02:50 99 02/19/21 00:00 99 02/18/21 23:30 98 Intake and Output 02/19/21 02/19/21 02/19/21 06:59 14:59 22:59 Intake Total 3360 Output Total 900 250 Balance -900 3110 Intake: IV 3100 Intake, IV Titration 260 Amount Sodium Chloride 0.9% 1, 260 000 ml @ 130 mls/hr IV . Q7H42M [facility] Rx#:[id number] Output: Urine 900 200 Estimated Blood Loss 50 Other: Voiding Method Indwelling Catheter Weight 81.647 kg 81.647 kg 81.647 kg General: well nourished, well developed, NAD. Vitals reviewed Eyes: PERRL, EOMI, conjunctiva normal HENT: normocephalic, mucus membranes moist Neck: supple, no JVD Lungs: normal respiratory effort, no wheezes or rales CV: Regular rate and rhythm, no murmur. Peripheral pulses 2+ Abdomen: soft, generalized tenderness to palpation, worst R sided Lymph: no cervical or axillary LAD Skin: warm and dry. Neuro: A&Ox3, normal mood and affect Results CBC & Chem 7: 02/19/21 15:25 02/18/21 21:10 Labs: Abnormal Lab Results - Last 24 Hours (Table) 02/18/21 02/18/21 02/18/21 Range/Units 21:10 21:10 21:10 WBC 17.3 H (3.8-10.6) k/uL RBC (4.30-5.90) m/uL MCV (80.0-100.0) fL Neutrophils # 16.0 H (1.3-7.7) k/uL Neutrophils # (Manual) (1.3-7.7) k/uL Lymphocytes # 0.5 L (1.0-4.8) k/uL Metamyelocytes # (Man) (0) k/uL Sodium 136 L (137-145) mmol/L Carbon Dioxide 21 L (22-30) mmol/L Glucose 121 H (74-99) mg/dL Plasma Lactic Acid Manuel 3.3 H* (0.7-2.0) mmol/L Ur Specific [place] (1.001-1.035) Urine Protein (Negative) 02/19/21 02/19/21 02/19/21 Range/Units 00:27 02:25 04:51 WBC (3.8-10.6) k/uL RBC (4.30-5.90) m/uL MCV (80.0-100.0) fL Neutrophils # (1.3-7.7) k/uL Neutrophils # (Manual) (1.3-7.7) k/uL Lymphocytes # (1.0-4.8) k/uL Metamyelocytes # (Man) (0) k/uL Sodium (137-145) mmol/L Carbon Dioxide (22-30) mmol/L Glucose (74-99) mg/dL Plasma Lactic Acid [place] 2.7 H* 3.2 H* (0.7-2.0) mmol/L Ur Specific [place] 1.041 H (1.001-1.035) Urine Protein Trace H (Negative) 02/19/21 Range/Units 15:25 WBC 11.7 H (3.8-10.6) k/uL RBC 4.22 L (4.30-5.90) m/uL MCV 101.6 H (80.0-100.0) fL Neutrophils # (1.3-7.7) k/uL Neutrophils # (Manual) 9.40 H (1.3-7.7) k/uL Lymphocytes # (1.0-4.8) k/uL Metamyelocytes # (Man) 0.23 H (0) k/uL Sodium (137-145) mmol/L Carbon Dioxide (22-30) mmol/L Glucose (74-99) mg/dL Plasma Lactic Acid Manuel (0.7-2.0) mmol/L Ur Specific [place] (1.001-1.035) Urine Protein (Negative) Thrombosis Risk Factor Assmnt - Choose All That Apply Each Risk Factor Represents 2 Points: Age 61-74 years, Major surgery Thrombosis Risk Factor Assessment Total Risk Factor Score: 4 Thrombosis Risk Factor Assessment Level: Moderate Risk Assessment and Plan Plan: 1. Sepsis secondary to perforated diverticulitis. Surgery consulted, scheduled for Wilburn procedure. Start zosyn. IV fluids. Follow labs
[2021-02-19] MEDS: HYDROmorphone 1 MG/ML 1 ML SYRINGE IVP PRN (23:32)
[2021-02-20] MEDS: SODIUM CHLORIDE 0.9% 1,000 ML IV SCH ×3 (00:22→15:56)
[2021-02-20] MEDS: PIPERACILLIN-TAZOBACTAM 3.375 GM in SODIUM CHLORIDE 0.9% 100 ML IVPB SCH ×3 (00:27→15:56)
[2021-02-20] MEDS: HEPARIN SODIUM,PORCINE/PF 5,000 UNIT/0.5 ML SYRINGE SQ SCH ×3 (00:28→15:56)
[2021-02-20] MEDS: ACETAMINOPHEN IV (For NPO) 1,000 MG in EMPTY BAG 1 BAG IVPB SCH ×2 (03:37→08:17)
[2021-02-20] MEDS: HYDROmorphone 1 MG/ML 1 ML SYRINGE IVP PRN ×3 (05:11→23:50)
[2021-02-20] MEDS: ONDANSETRON 4 MG/2 ML VIAL IVP PRN (05:32)
[2021-02-20] MEDS: FAMOTIDINE 20 MG/2 ML VIAL IV SCH (08:18)
[2021-02-20 09:45] LABS: Basophils % (A) 0 %; Eosinophils % (A) 0 %; HCT 40.8 % (39.0-53.0); HGB 13.4 gm/dL (13.0-17.5); Lymphocytes # (A) 0.7 k/uL (1.0-4.8); Lymphocytes % (A) 8 %; MCH 32.9 pg (25.0-35.0); MCHC 32.9 g/dL (31.0-37.0); Mean Platelet Volume 8.7; Monocytes # (A) 0.2 k/uL (0-1.0); Monocytes % (A) 2 %; Neutrophils # (A) 7.7 k/uL (1.3-7.7); Neutrophils % (A) 89 %; Platelet Count 136 k/uL (150-450); RBC 4.08 m/uL (4.30-5.90); RDW 12.4 % (11.5-15.5); WBC 8.8 k/uL (3.8-10.6)
[2021-02-20 10:07] LABS: African American GFR (CKD) >90 (>60 ml/min/1.73 sqM); Anion Gap 7 mmol/L; Blood Urea Nitrogen 15 mg/dL (9-20); Calcium 7.9 mg/dL (8.4-10.2); Carbon Dioxide 18 mmol/L (22-30); Chloride 111 mmol/L (98-107); Glucose 112 mg/dL (74-99); Non-African American GFR(CKD) >90 (>60 ml/min/1.73 sqM); Sodium 136 mmol/L (137-145)
--- NOTE | 2021-02-20 11:01 | P.PN ---
Progress Note - Text Progress Note Date: 02/20/21 Patient's postoperative day 1 from her procedure with end colostomy. He has some complaints of incisional pain. On exam vital signs are stable. Abdomen soft. Status post Harpal procedure for perforated diverticular history patient continued to have supportive care.
[2021-02-21] MEDS: FAMOTIDINE 20 MG/2 ML VIAL IV SCH ×3 (00:16→20:55)
[2021-02-21] MEDS: TEMAZEPAM 15 MG CAP PO PRN ×2 (00:16→20:55)
[2021-02-21] MEDS: PIPERACILLIN-TAZOBACTAM 3.375 GM in SODIUM CHLORIDE 0.9% 100 ML IVPB SCH ×3 (00:26→16:29)
[2021-02-21] MEDS: SODIUM CHLORIDE 0.9% 1,000 ML IV SCH ×4 (00:26→20:56)
[2021-02-21] MEDS: HEPARIN SODIUM,PORCINE/PF 5,000 UNIT/0.5 ML SYRINGE SQ SCH ×3 (00:26→16:28)
[2021-02-21] MEDS: HYDROmorphone 1 MG/ML 1 ML SYRINGE IVP PRN ×4 (02:32→22:01)
[2021-02-21] MEDS ORDERED: ACETAMINOPHEN TAB 325 MG TAB PO PRN (09:05)
--- NOTE | 2021-02-21 10:51 | P.PN ---
Progress Note - Text Progress Note Date: 02/21/21 Patient has complaints of incisional pain. He states he had a headache earlier and was given Tylenol. He states pain meds are working. On exam vital signs are stable. Abdomen soft. Colostomy has small amount of stool within it. I discussed the nursing staff his pain requirements. Apparently he has not taken any narcotic pain meds for several hours. The nurse will address his pain medication schedule. His wound has silver rope liver. He will have the top dressing change today.
[2021-02-21 10:56] LABS: Basophils % (A) 0 %; Eosinophils # (A) 0.2 k/uL (0-0.7); Eosinophils % (A) 2 %; HCT 38.6 % (39.0-53.0); HGB 13.3 gm/dL (13.0-17.5); Lymphocytes # (A) 0.8 k/uL (1.0-4.8); Lymphocytes % (A) 7 %; MCH 33.8 pg (25.0-35.0); MCHC 34.5 g/dL (31.0-37.0); Mean Platelet Volume 8.9; Monocytes # (A) 0.3 k/uL (0-1.0); Monocytes % (A) 3 %; Neutrophils # (A) 9.9 k/uL (1.3-7.7); Neutrophils % (A) 88 %; Platelet Count 155 k/uL (150-450); RBC 3.94 m/uL (4.30-5.90); RDW 12.3 % (11.5-15.5); WBC 11.3 k/uL (3.8-10.6)
--- NOTE | 2021-02-21 14:51 | P.PN ---
Subjective Progress Note Date: 02/20/21 Principal diagnosis: Sigmoid diverticulitis Jeremy Ridley is a 70 yo M with PMH of HLD, who presented to the ED complaining of 2 day history of worsening abdominal pain. He complains he had been constipated for a few days and noticing constant aching suprapubic pain. He tried laxatives and enema without any improvement so came to the ED. He denies chills, nausea, vomiting. On presentation he was tachycardic and febrile, WBC 17k, lactic 3.3, COVID negative. CT abd/pelvis with sigmoid diverticulitis and fluid pocket. 02/20/2021 Patient is status post sigmoid colectomy due to diverticulitis with perforation. Patient does have some abdominal discomfort. No nausea vomiting. Patient was started on clear liquid diet. Continue pain management. Patient has been afebrile. No complaints of chest pain or short of breath. Nausea improved. Laboratory data showed WBC 8.18:13.4 and platelets 136 Sodium 136 potassium 4.0 chloride 11 bicarb is 18, BUN 15 creatinine 0.69 and calcium 7.9 Current medications reviewed. Objective - Vital Signs Vital signs: Vital Signs Temp 98.2 F 02/20/21 08:33 Pulse 88 02/20/21 08:33 Resp 16 02/20/21 08:33 BP 100/62 02/20/21 08:33 Pulse Ox 94 L 02/20/21 08:33 Intake & Output 02/19/21 02/20/21 02/20/21 18:59 06:59 18:59 Intake Total 3360 2040 Output Total 250 500 Balance 3110 1540 Weight 81.647 kg Intake: IV 3100 Intake, IV Titration 260 1500 Amount ACETAMINOPHEN IV (For NPO 100 ) 1,000 mg In Empty Bag 1 bag @ 400 mls/hr IVPB Q6H [facility] Rx#:[id number] Piperacillin-Tazobactam 3 100 .375 gm In Sodium Chloride 0.9% 100 ml @ 25 mls/hr IVPB Q8HR [facility] Rx# :[id number] Sodium Chloride 0.9% 1, 260 1300 000 ml @ 130 mls/hr IV . Q7H42M [facility] Rx#:[id number] Oral 540 Output: Urine 200 500 Estimated Blood Loss 50 Other: Voiding Method Indwelling Catheter Indwelling Catheter - Exam General: well nourished, well developed, NAD. Vitals reviewed Eyes: PERRL, EOMI, conjunctiva normal HENT: normocephalic, mucus membranes moist Neck: supple, no JVD Lungs: normal respiratory effort, no wheezes or rales CV: Regular rate and rhythm, no murmur. Peripheral pulses 2+ Abdomen: soft, mild distention. Nontender. Left-sided colostomy bag in place. Lymph: no cervical or axillary LAD Skin: warm and dry. Neuro: A&Ox3, normal mood and affect - Labs CBC & Chem 7: 02/21/21 10:35 02/20/21 09:24 Labs: Abnormal Lab Results - Last 24 Hours (Table) 02/19/21 02/20/21 02/20/21 Range/Units 15:25 09:24 09:24 WBC 11.7 H (3.8-10.6) k/uL RBC 4.22 L 4.08 L (4.30-5.90) m/uL MCV 101.6 H (80.0-100.0) fL Plt Count 136 L (150-450) k/uL Neutrophils # (Manual) 9.40 H (1.3-7.7) k/uL Lymphocytes # 0.7 L (1.0-4.8) k/uL Metamyelocytes # (Man) 0.23 H (0) k/uL Sodium 136 L (137-145) mmol/L Chloride 111 H (98-107) mmol/L Carbon Dioxide 18 L (22-30) mmol/L Glucose 112 H (74-99) mg/dL Calcium 7.9 L (8.4-10.2) mg/dL Microbiology - Last 24 Hours (Table) 02/18/21 23:45 Blood Culture - Preliminary Blood No Growth after 24 hours 02/18/21 23:30 Blood Culture - Preliminary Blood No Growth after 24 hours Assessment and Plan Assessment: Perforated sigmoid diverticulitis with perforation. Status post sigmoid colectomy and colostomy bag on 02/19/2021. Sepsis secondary to above Hyperlipidemia Hypothyroidism Osteoarthritis GERD Previous history of smoking DVT prophylaxis. Plan: Patient be covered on IV hydration and also on clear liquid diet. Patient is currently on antibiotics Zosyn. Follow up culture reports. Continue with pain management. Gen. surgery is on board. GI and DVT prophylaxis. Time with Patient: Greater than 30
[2021-02-21] MEDS: ONDANSETRON 4 MG/2 ML VIAL IVP PRN (16:38)
--- NOTE | 2021-02-21 21:49 | P.PN ---
Subjective Progress Note Date: 02/21/21 Principal diagnosis: Sigmoid diverticulitis Jeremy Ridley is a 70 yo M with PMH of HLD, who presented to the ED complaining of 2 day history of worsening abdominal pain. He complains he had been constipated for a few days and noticing constant aching suprapubic pain. He tried laxatives and enema without any improvement so came to the ED. He denies chills, nausea, vomiting. On presentation he was tachycardic and febrile, WBC 17k, lactic 3.3, COVID negative. CT abd/pelvis with sigmoid diverticulitis and fluid pocket. 02/20/2021 Patient is status post sigmoid colectomy due to diverticulitis with perforation. Patient does have some abdominal discomfort. No nausea vomiting. Patient was started on clear liquid diet. Continue pain management. Patient has been afebrile. No complaints of chest pain or short of breath. Nausea improved. Laboratory data showed WBC 8.18:13.4 and platelets 136 Sodium 136 potassium 4.0 chloride 11 bicarb is 18, BUN 15 creatinine 0.69 and calcium 7.9 02/21/2021 Patient is currently resting in bed. Complains of pain at the surgical site. N o fever no chills. Dressing changes being done today. Denies any complaints of chest pain or shortness of breath. No nausea or vomiting. Patient is tolerating liquid diet. No output from the colostomy bag today morning. Laboratory data showed WBC 11.3 hemoglobin 13.3 and platelets 155 General surgery is on board. Current medications reviewed. Objective - Vital Signs Vital signs: Vital Signs Temp 99.3 F 02/21/21 08:47 Pulse 95 02/21/21 08:47 Resp 19 02/21/21 08:47 BP 132/83 02/21/21 08:47 Pulse Ox 90 L 02/21/21 08:47 Intake & Output 02/20/21 02/21/21 02/21/21 18:59 06:59 18:59 Output Total 800 Balance -800 Output: Urine 800 Other: Voiding Method Indwelling Catheter Indwelling Catheter - Exam General: well nourished, well developed, NAD. Vitals reviewed Eyes: PERRL, EOMI, conjunctiva normal HENT: normocephalic, mucus membranes moist Neck: supple, no JVD Lungs: normal respiratory effort, no wheezes or rales CV: Regular rate and rhythm, no murmur. Peripheral pulses 2+ Abdomen: soft, mild distention. Nontender. Left-sided colostomy bag in place. Lymph: no cervical or axillary LAD Skin: warm and dry. Neuro: A&Ox3, normal mood and affect - Labs CBC & Chem 7: 02/21/21 10:35 02/20/21 09:24 Labs: Abnormal Lab Results - Last 24 Hours (Table) 02/21/21 Range/Units 10:35 WBC 11.3 H (3.8-10.6) k/uL RBC 3.94 L (4.30-5.90) m/uL Hct 38.6 L (39.0-53.0) % Neutrophils # 9.9 H (1.3-7.7) k/uL Lymphocytes # 0.8 L (1.0-4.8) k/uL Microbiology - Last 24 Hours (Table) 02/18/21 23:45 Blood Culture - Preliminary Blood No Growth after 48 hours 02/18/21 23:30 Blood Culture - Preliminary Blood No Growth after 48 hours Assessment and Plan Assessment: Perforated sigmoid diverticulitis with perforation. Status post sigmoid colectomy and colostomy bag on 02/19/2021. Sepsis secondary to above Hyperlipidemia Hypothyroidism Osteoarthritis GERD Previous history of smoking DVT prophylaxis. Plan: Patient be covered on IV hydration and also on clear liquid diet. Patient is currently on antibiotics Zosyn. Follow up culture reports. Continue with pain management. Gen. surgery is on board. GI and DVT prophylaxis. Time with Patient: Greater than 30
[2021-02-22] MEDS: HEPARIN SODIUM,PORCINE/PF 5,000 UNIT/0.5 ML SYRINGE SQ SCH ×4 (00:20→20:55)
[2021-02-22] MEDS: PIPERACILLIN-TAZOBACTAM 3.375 GM in SODIUM CHLORIDE 0.9% 100 ML IVPB SCH ×3 (00:20→15:57)
[2021-02-22] MEDS: HYDROmorphone 1 MG/ML 1 ML SYRINGE IVP PRN ×3 (04:03→15:57)
[2021-02-22] MEDS: ONDANSETRON 4 MG/2 ML VIAL IVP PRN (04:08)
[2021-02-22] MEDS: SODIUM CHLORIDE 0.9% 1,000 ML IV SCH ×3 (06:13→21:09)
[2021-02-22 08:33] LABS: Basophils % (A) 0 %; Eosinophils # (A) 0.2 k/uL (0-0.7); Eosinophils % (A) 1 %; HCT 41.4 % (39.0-53.0); HGB 13.7 gm/dL (13.0-17.5); Lymphocytes # (A) 1.3 k/uL (1.0-4.8); Lymphocytes % (A) 9 %; MCH 32.6 pg (25.0-35.0); MCHC 33.2 g/dL (31.0-37.0); MCV 98.1 fL (80.0-100.0); Mean Platelet Volume 8.5; Monocytes # (A) 0.5 k/uL (0-1.0); Monocytes % (A) 4 %; Neutrophils # (A) 11.5 k/uL (1.3-7.7); Neutrophils % (A) 84 %; Platelet Count 218 k/uL (150-450); RBC 4.22 m/uL (4.30-5.90); RDW 12.2 % (11.5-15.5); WBC 13.6 k/uL (3.8-10.6)
[2021-02-22 08:48] LABS: African American GFR (CKD) >90 (>60 ml/min/1.73 sqM); Anion Gap 8 mmol/L; Blood Urea Nitrogen 17 mg/dL (9-20); Calcium 8.1 mg/dL (8.4-10.2); Carbon Dioxide 21 mmol/L (22-30); Chloride 112 mmol/L (98-107); Glucose 93 mg/dL (74-99); Non-African American GFR(CKD) >90 (>60 ml/min/1.73 sqM); Potassium 3.8 mmol/L (3.5-5.1); Sodium 141 mmol/L (137-145)
[2021-02-22] MEDS: FAMOTIDINE 20 MG/2 ML VIAL IV SCH ×2 (09:04→20:54)
--- NOTE | 2021-02-22 11:05 | P.PN ---
<Ely Rice - Last Filed: 02/22/21 10:58> Subjective Progress Note Date: 02/22/21 CHIEF COMPLAINT: Perforated sigmoid diverticulitis HISTORY OF PRESENT ILLNESS: Patient is postop Day #3 status post sigmoid colectomy with end colostomy for perforated sigmoid diverticulitis. Patient is complaining of abdominal pain. He does rate his pain about a 9 out of 10. His abdomen is distended. No function per ostomy. Denies any nausea or vomiting. Afebrile. WBC is up from 11.3-13.6 PHYSICAL EXAM: VITAL SIGNS: Reviewed. GENERAL: Well-developed in no acute distress. HEENT: No sclera icterus. Extraocular movements grossly intact. Moist buccal mucosa. Head is atraumatic, normocephalic. ABDOMEN: Distended. Tender with palpation. Incision site clean dry and intact with 3 Sharan. Ostomy bag with serosanguineous fluid NEUROLOGIC: Alert and oriented. Cranial nerves II through XII grossly intact. ASSESSMENT: 1. Perforated sigmoid diverticulitis status post sigmoid colectomy with end colostomy 2. Probable postoperative ileus PLAN: -Add Reglan 10 mg IV every 6 -Add Toradol 50 mg IV every 6 for pain -Encourage patient to ambulate -Encourage patient to use incentive spirometer -Increase IV fluids normal saline 75 mL an hour -Change abdominal sharan every 2 days -Further recommendations forthcoming per surgeon -GI prophylaxis Pepcid and DVT prophylaxis subcu heparin Physician Combine Inspector note has been reviewed by physician. Signing provider agrees with the documented findings, assessment, and plan of care. Objective - Vital Signs Vital signs: Vital Signs Temp 97.9 F 02/22/21 00:26 Pulse 86 02/22/21 00:26 Resp 18 02/22/21 00:26 BP 137/87 02/22/21 00:26 Pulse Ox 94 L 02/22/21 00:26 Intake & Output 02/21/21 02/22/21 02/22/21 18:59 06:59 18:59 Intake Total 118 Output Total 1100 500 0 Balance -1100 -500 118 Intake: Oral 118 Output: Urine 1100 500 Stool 0 0 Other: Voiding Method Indwelling Catheter Indwelling Catheter - Labs CBC & Chem 7: 02/22/21 07:49 02/22/21 07:49 Labs: Abnormal Lab Results - Last 24 Hours (Table) 02/22/21 02/22/21 Range/Units 07:49 07:49 WBC 13.6 H (3.8-10.6) k/uL RBC 4.22 L (4.30-5.90) m/uL Neutrophils # 11.5 H (1.3-7.7) k/uL Chloride 112 H (98-107) mmol/L Carbon Dioxide 21 L (22-30) mmol/L Calcium 8.1 L (8.4-10.2) mg/dL Microbiology - Last 24 Hours (Table) 02/18/21 23:30 Blood Culture - Preliminary Blood No Growth after 72 hours 02/18/21 23:45 Blood Culture - Preliminary Blood No Growth after 72 hours <Claus Vizcarra - Last Filed: 02/22/21 11:12> Subjective As above. Patient with increased abdominal bloating today. Feels nauseated. No ostomy function. On exam the patient is distended with mild diffuse tenderness. Suspect adynamic ileus. Will have nasogastric tube placed. Add Toradol for pain control. Keep nothing by mouth. Objective - Vital Signs Vital signs: Vital Signs Temp 97.9 F 02/22/21 00:26 Pulse 86 02/22/21 00:26 Resp 18 02/22/21 00:26 BP 137/87 02/22/21 00:26 Pulse Ox 94 L 02/22/21 00:26 Intake & Output 02/21/21 02/22/21 02/22/21 18:59 06:59 18:59 Intake Total 118 Output Total 1100 500 0 Balance -1100 -500 118 Intake: Oral 118 Output: Urine 1100 500 Stool 0 0 Other: Voiding Method Indwelling Catheter Indwelling Catheter - Labs CBC & Chem 7: 02/22/21 07:49 02/22/21 07:49 Labs: Abnormal Lab Results - Last 24 Hours (Table) 02/22/21 02/22/21 Range/Units 07:49 07:49 WBC 13.6 H (3.8-10.6) k/uL RBC 4.22 L (4.30-5.90) m/uL Neutrophils # 11.5 H (1.3-7.7) k/uL Chloride 112 H (98-107) mmol/L Carbon Dioxide 21 L (22-30) mmol/L Calcium 8.1 L (8.4-10.2) mg/dL Microbiology - Last 24 Hours (Table) 02/18/21 23:30 Blood Culture - Preliminary Blood No Growth after 72 hours 02/18/21 23:45 Blood Culture - Preliminary Blood No Growth after 72 hours Assessment and Plan (1) Diverticulitis Current Visit: Yes Status: Acute Code(s): K57.92 - DVTRCLI OF INTEST, PART UNSP, W/O PERF OR ABSCESS W/O BLEED SNOMED Code(s): 301064972
[2021-02-22] MEDS: METOCLOPRAMIDE 5 MG/ML 2 ML VIAL IVP SCH ×3 (13:27→20:54)
[2021-02-22] MEDS: KETOROLAC 30 MG/ML 1 ML VIAL IVP SCH ×3 (13:28→20:53)
--- NOTE | 2021-02-22 14:14 | XR ---
EXAMINATION TYPE: XR chest 1V portable DATE OF EXAM: 02/22/2021 COMPARISON: Chest CT 02/01/2019 HISTORY: NG tube placement TECHNIQUE: Single frontal view of the chest is obtained. FINDINGS: There is an underlying scoliosis. Right hemidiaphragm remains elevated. NG tube is in plac e with the distal tip overlying the stomach. Patchy basilar density is noted. There is no evident pne umothorax or pleural effusion. Cardiac mediastinal silhouette is likely stable. IMPRESSION: Basilar atelectasis. Correlate to exclude pneumonia. Follow-up PA and lateral chest x-ra y may be of benefit. NG tube as described.
--- NOTE | 2021-02-22 14:24 | XR ---
EXAMINATION TYPE: XR chest 1V portable DATE OF EXAM: 02/22/2021 COMPARISON: Chest x-ray 02/22/2021 and earlier time HISTORY: NG tube placement TECHNIQUE: frontal view of the chest is obtained on 2 images. FINDINGS: NG tube shows the distal tip overlying the stomach. No other significant interval change. IMPRESSION: NG tube overlying the stomach.
--- NOTE | 2021-02-22 15:48 | CDI ---
Documentation Clarification Form Date: 02/22/2021 03:41:26 PM From: Rossi Jean CCS, CCDS Admit Date: 02/18/2021 11:09:00 PM Patient Name: Jeremy Ridley Visit Number: [id number] Discharge Date: ATTENTION: The Clinical Documentation Specialists (CDI) and [facility] Coding Staff appreciate your assistance in clarifying documentation. Please respond to the clarification below the line at the bottom and electronically sign. The CDI & [facility] Coding staff will review the response and follow-up if needed. Please note: Queries are made part of the Legal Health Record. If you have any questions, please contact the author of this message via ITS. Dr. Claus Vizcarra: Probable postoperative Ileus is documented in the 02/22 Surgery Progress Note without further specificity. Additional clarification is requested regarding the relationship, if any, that exists between the diagnosis and the procedure. Patients Admitting Diagnosis per the 02/19 OR note: Perforated Sigmoid Diverticulitis Post-Operative Diagnosis: same. Procedure performed 02/19: Sigmoid Colectomy with End Colostomy History/Risk Factors per the 02/19 H/P: GERD, Hypertension, Hyperlipidemia, Osteoarthritis, Hypothyroidism, Former smoker. Clinical Indicators: Presented to the ED on 02/18 with Abdominal pain & constipation. Admit with Diverticulitis Treatment 02/22 Postoperatively: Add IV Reglan q6, Add IV Toradol q6, Encourage ambulation, Encourage Incentive Spirometer, Increase IV fluids to normal saline 75 mL/Hr. What relationship, if any, exists between the diagnosis of Probable Postoperative Ileus and the procedure: [ ] Postoperative Ileus is a complication of surgical procedure [ x ] Postoperative Ileus is an expected outcome of the surgical procedure [ ] Postoperative Ileus is related to patients co-morbid condition(s), please specify: & not a complication of the procedure [ ] Postoperative Ileus has been ruled out [ ] Other please specify: [ ] Unable to determine (Template Last Revised: May 2020) MTDD
--- NOTE | 2021-02-22 17:10 | P.PN ---
Subjective Progress Note Date: 02/22/21 Jeremy Ridley is a 70 yo M with PMH of HLD, who presented to the ED complaining of 2 day history of worsening abdominal pain. He complains he had been constipated for a few days and noticing constant aching suprapubic pain. He tried laxatives and enema without any improvement so came to the ED. He denies c hills, nausea, vomiting. On presentation he was tachycardic and febrile, WBC 17k, lactic 3.3, COVID negative. CT abd/pelvis with sigmoid diverticulitis and fluid pocket. 02/22/2021 postop day #3 sigmoid colectomy with end colostomy for perforated sigmoid diverticulitis. complains of abdominal pain. Nauseated on clear liquid diet. Minimal drainage from ostomy. Afebrile, T-max 99.3, WBC increased to 13.6. Preliminary blood cultures reporting no growth at 72 hours. Sodium normalized .Renal function stable. Maintaining O2 sats in the 90s on 3 L nasal cannula. Objective - Vital Signs Vital signs: Vital Signs Temp 97.9 F 02/22/21 00:26 Pulse 86 02/22/21 00:26 Resp 18 02/22/21 00:26 BP 137/87 02/22/21 00:26 Pulse Ox 94 L 02/22/21 00:26 Intake & Output 02/21/21 02/22/21 02/22/21 18:59 06:59 18:59 Intake Total 118 Output Total 1100 500 0 Balance -1100 -500 118 Intake: Oral 118 Output: Urine 1100 500 Stool 0 0 Other: Voiding Method Indwelling Catheter Indwelling Catheter - Exam General: Sitting up in bed, no acute distress. NAD. Vitals reviewed Eyes: PERRL, EOMI, conjunctiva normal HENT: normocephalic, mucus membranes moist Neck: supple, no JVD Lungs: normal respiratory effort, no wheezes or rales CV: Regular rate and rhythm, no murmur. Peripheral pulses 2+ Abdomen: soft, distended, status post surgery-tender, ostomy with minimal serosanguineous drainage Skin: warm and dry. Neuro: A&Ox3, normal mood and affect - Labs CBC & Chem 7: 02/22/21 07:49 02/22/21 07:49 Labs: Abnormal Lab Results - Last 24 Hours (Table) 02/22/21 02/22/21 Range/Units 07:49 07:49 WBC 13.6 H (3.8-10.6) k/uL RBC 4.22 L (4.30-5.90) m/uL Neutrophils # 11.5 H (1.3-7.7) k/uL Chloride 112 H (98-107) mmol/L Carbon Dioxide 21 L (22-30) mmol/L Calcium 8.1 L (8.4-10.2) mg/dL Microbiology - Last 24 Hours (Table) 02/18/21 23:30 Blood Culture - Preliminary Blood No Growth after 72 hours 02/18/21 23:45 Blood Culture - Preliminary Blood No Growth after 72 hours Assessment and Plan Assessment: Sepsis secondary to perforated diverticulitis. Status post sigmoid colectomy with end colostomy Postoperative ileus, probable Acute hypoxic respiratory failure, postop Basilar atelectasis Plan: Continue on current medication regime ,monitoring and symptomatic treatment. Chest x-ray ordered. IV fluid hydration. Antiemetics with Reglan added to regimen. Diet advancement as per surgery. Increase ambulation as tolerated. Aggressive pulmonary toileting with incentive spirometer reinforced. The impression and plan of care has been dictated as directed. : I performed a history and examination of this patient, discussed the same with the dictator. I agree with the dictator's note ,documented as a scribe. Any additional findings or plans will be noted.
[2021-02-22] MEDS: ACETAMINOPHEN IV (For NPO) 1,000 MG in EMPTY BAG 1 BAG IVPB SCH (20:55)
[2021-02-23] MEDS: HYDROmorphone 1 MG/ML 1 ML SYRINGE IVP PRN (00:45)
[2021-02-23] MEDS: PIPERACILLIN-TAZOBACTAM 3.375 GM in SODIUM CHLORIDE 0.9% 100 ML IVPB SCH ×4 (00:46→22:25)
[2021-02-23] MEDS: ACETAMINOPHEN IV (For NPO) 1,000 MG in EMPTY BAG 1 BAG IVPB SCH ×3 (03:02→13:18)
[2021-02-23] MEDS: KETOROLAC 30 MG/ML 1 ML VIAL IVP SCH ×4 (05:24→22:24)
[2021-02-23] MEDS: METOCLOPRAMIDE 5 MG/ML 2 ML VIAL IVP SCH ×4 (05:24→22:25)
[2021-02-23] MEDS: SODIUM CHLORIDE 0.9% 1,000 ML IV SCH ×3 (05:26→13:16)
[2021-02-23] MEDS: FAMOTIDINE 20 MG/2 ML VIAL IV SCH ×2 (08:33→22:25)
[2021-02-23] MEDS: HEPARIN SODIUM,PORCINE/PF 5,000 UNIT/0.5 ML SYRINGE SQ SCH ×3 (08:33→22:25)
--- NOTE | 2021-02-23 09:03 | CDI ---
Documentation Clarification Form Date: 02/23/2021 08:55:00 AM From: Rossi Jean CCS, CCDS Admit Date: 02/18/2021 11:09:00 PM Patient Name: Jeremy Ridley Visit Number: [id number] Discharge Date: ATTENTION: The Clinical Documentation Specialists (CDI) and [facility] Coding Staff appreciate your assistance in clarifying documentation. Please respond to the clarification below the line at the bottom and electronically sign. The CDI & [facility] Coding staff will review the response and follow-up if needed. Please note: Queries are made part of the Legal Health Record. If you have any questions, please contact the author of this message via ITS. Dr. Pritesh Walls: Acute hypoxic respiratory failure, postop is documented in the 02/22 Attending Progress Note without further specificity. Additional clarification is requested regarding the relationship, if any, that exists between the diagnosis and the procedure. Patients Admitting Diagnosis per the 02/19 History & Physical: Sepsis secondary to perforated diverticulitis. Post-Operative Diagnosis: Same. Procedure performed 02/19: Sigmoid colectomy with end colostomy. History/Risk Factors per the 02/19 H/P: GERD, Hypertension, Hyperlipidemia, Osteoarthritis, Hypothyroidism, Former smoker. Clinical Indicators: Presented to the ED on 02/18 with Abdominal pain & constipation. Admit with Diverticulitis Treatment per 02/22 Attending PN: Continue on current medication regime ,monitoring and symptomatic treatment. Chest x-ray ordered. IV fluid hydration. Antiemetics with Reglan added to regimen. Diet advancement as per surgery. Increase ambulation as tolerated. Aggressive pulmonary toileting with incentive spirometer reinforcement. What relationship, if any, exists between the diagnosis of Acute Hypoxic Respiratory Failure, postop and the procedure: [ ] Acute hypoxic respiratory failure is a complication of surgical procedure [ ] Acute hypoxic respiratory failure is an expected outcome of the surgical procedure [ ] Acute hypoxic respiratory failure is related to patients co-morbid condition(s), please specify: & not a complication of the procedure [ ] Acute hypoxic respiratory failure has been ruled out [ ] Other please specify: [ ] Unable to determine (Template Last Revised: May 2020) Acute hypoxic respiratory failure is an expected outcome of the surgical procedure MTDD
--- NOTE | 2021-02-23 09:51 | XR ---
EXAMINATION TYPE: XR abdomen 2V DATE OF EXAM: 02/23/2021 COMPARISON: 02/23/2021 HISTORY: Pain TECHNIQUE: One view abdominal series FINDINGS: Cardiomegaly with interstitial pattern and bibasilar infiltrate with small effusions. Severe scoliosi s. The bowel gas pattern nonspecific with dilated small bowel loops. Surgical sonny are seen and th ere is arthropathy of the hips. Ileus or partial obstruction in the differential diagnosis. IMPRESSION: 1. Bibasilar infiltrate and pleural effusion correlate for CHF or pneumonia. 2. Persistent dilated small bowel loops in the midabdomen correlate for ileus versus partial obstruct ion. Findings stable.
[2021-02-23 10:05] LABS: Basophils # (A) 0.1 k/uL (0-0.2); Basophils % (A) 0 %; Eosinophils # (A) 0.5 k/uL (0-0.7); Eosinophils % (A) 4 %; HCT 44.6 % (39.0-53.0); HGB 14.6 gm/dL (13.0-17.5); Lymphocytes % (A) 8 %; MCH 33.3 pg (25.0-35.0); MCHC 32.9 g/dL (31.0-37.0); MCV 101.2 fL (80.0-100.0); Mean Platelet Volume 8.2; Monocytes # (A) 0.5 k/uL (0-1.0); Monocytes % (A) 4 %; Neutrophils % (A) 83 %; Platelet Count 241 k/uL (150-450); RDW 12.7 % (11.5-15.5); WBC 13.2 k/uL (3.8-10.6)
[2021-02-23 10:18] VITALS: BMI 26.6
[2021-02-23 10:26] LABS: African American GFR (CKD) >90 (>60 ml/min/1.73 sqM); Anion Gap 12 mmol/L; Blood Urea Nitrogen 17 mg/dL (9-20); Calcium 8.5 mg/dL (8.4-10.2); Carbon Dioxide 20 mmol/L (22-30); Chloride 112 mmol/L (98-107); Glucose 85 mg/dL (74-99); Non-African American GFR(CKD) >90 (>60 ml/min/1.73 sqM); Potassium 3.4 mmol/L (3.5-5.1); Sodium 144 mmol/L (137-145)
--- NOTE | 2021-02-23 12:29 | P.PN ---
<Ely Rice - Last Filed: 02/23/21 12:21> Subjective Progress Note Date: 02/23/21 CHIEF COMPLAINT: Perforated sigmoid diverticulitis HISTORY OF PRESENT ILLNESS: Patient is postop Day #4 status post sigmoid colectomy with end colostomy for perforated sigmoid diverticulitis. Patient reports his abdominal pain is less since the placement of NG tube. NG tube output 650 mL through the night. He is feeling nauseated but better since NG tube placed. Per patient there may have been air in the ostomy bag. The nurse did not witness the air. Afebrile. WBC 13.2 Hgb 14.6 sodium 144 potassium is 3.4 abdominal x-ray persistent dilated small bowel loops in the mid abdomen correlate for ileus versus partial obstruction. Bibasilar infiltrate and pleural effusion correlate for CHF or pneumonia PHYSICAL EXAM: VITAL SIGNS: Reviewed. GENERAL: Well-developed in no acute distress. HEENT: No sclera icterus. Extraocular movements grossly intact. Moist buccal mucosa. Head is atraumatic, normocephalic. ABDOMEN: softer. slight decrease in distention. Incision site was serous drainage at wick sites. Ostomy bag with serosanguineous fluid NEUROLOGIC: Alert and oriented. Cranial nerves II through XII grossly intact. ASSESSMENT: 1. Perforated sigmoid diverticulitis status post sigmoid colectomy with end colostomy 2. Postoperative ileus 3. Hypokalemia PLAN: -We'll replace potassium -Continue Reglan 10 mg IV every 6 -Continue Toradol 50 mg IV every 6 for pain and IV Tylenol -Encourage patient to ambulate -Encourage patient to use incentive spirometer -Continue fluids -GI prophylaxis Pepcid and DVT prophylaxis subcu heparin Physician [email or web address] Architect note has been reviewed by physician. Signing provider agrees with the documented findings, assessment, and plan of care. Objective - Vital Signs Vital signs: Vital Signs Temp 97.7 F 02/23/21 09:20 Pulse 64 02/23/21 09:20 Resp 18 02/23/21 09:20 BP 141/81 02/23/21 09:20 Pulse Ox 97 02/23/21 09:20 Intake & Output 02/22/21 02/23/21 02/23/21 18:59 06:59 18:59 Intake Total 118 Output Total 0 650 15 Balance 118 -650 -15 Weight 81.647 kg Intake: Oral 118 Output: Gastric Drainage 650 Stool 0 0 15 Other: Voiding Method Indwelling Catheter Indwelling Catheter - Labs CBC & Chem 7: 02/23/21 09:49 02/23/21 09:49 Labs: Abnormal Lab Results - Last 24 Hours (Table) 02/23/21 02/23/21 Range/Units 09:49 09:49 WBC 13.2 H (3.8-10.6) k/uL MCV 101.2 H (80.0-100.0) fL Neutrophils # 11.0 H (1.3-7.7) k/uL Potassium 3.4 L (3.5-5.1) mmol/L Chloride 112 H (98-107) mmol/L Carbon Dioxide 20 L (22-30) mmol/L Creatinine 0.61 L (0.66-1.25) mg/dL Microbiology - Last 24 Hours (Table) 02/18/21 23:45 Blood Culture - Preliminary Blood No Growth after 96 hours 02/18/21 23:30 Blood Culture - Preliminary Blood No Growth after 96 hours <Claus Vizcarra - Last Filed: 02/23/21 13:21> Subjective As above. Patient says his pain is improved today is down to a 5 out of 10. Feels less bloated. Nasogastric output noted. Nasogastric tube was pulled back somewhat today. Continue IV antibiotics. Keep nothing by mouth with nasogastric tube to suction. We'll see if an abdominal binder helps with the patient's discomfort at this point. Objective - Vital Signs Vital signs: Vital Signs Temp 97.7 F 02/23/21 09:20 Pulse 64 02/23/21 09:20 Resp 18 02/23/21 09:20 BP 141/81 02/23/21 09:20 Pulse Ox 97 02/23/21 09:20 Intake & Output 02/22/21 02/23/21 02/23/21 18:59 06:59 18:59 Intake Total 118 Output Total 0 650 15 Balance 118 -650 -15 Weight 81.647 kg Intake: Oral 118 Output: Gastric Drainage 650 Stool 0 0 15 Other: Voiding Method Indwelling Catheter Indwelling Catheter Indwelling Catheter - Labs CBC & Chem 7: 02/23/21 09:49 02/23/21 09:49 Labs: Abnormal Lab Results - Last 24 Hours (Table) 02/23/21 02/23/21 Range/Units 09:49 09:49 WBC 13.2 H (3.8-10.6) k/uL MCV 101.2 H (80.0-100.0) fL Neutrophils # 11.0 H (1.3-7.7) k/uL Potassium 3.4 L (3.5-5.1) mmol/L Chloride 112 H (98-107) mmol/L Carbon Dioxide 20 L (22-30) mmol/L Creatinine 0.61 L (0.66-1.25) mg/dL Microbiology - Last 24 Hours (Table) 02/18/21 23:45 Blood Culture - Preliminary Blood No Growth after 96 hours 02/18/21 23:30 Blood Culture - Preliminary Blood No Growth after 96 hours Assessment and Plan (1) Diverticulitis Current Visit: Yes Status: Acute Code(s): K57.92 - DVTRCLI OF INTEST, PART UNSP, W/O PERF OR ABSCESS W/O BLEED SNOMED Code(s): 218653003
[2021-02-23] MEDS: POTASSIUM CHLORIDE 10 MEQ in WATER FOR INJECTION 1 100ML.BAG IVPB SCH ×2 (13:18→15:07)
[2021-02-23] MEDS ORDERED: Potassium Replacement Protocol 1 EACH MISC MISCELLANE PRN (14:40)
--- NOTE | 2021-02-23 14:47 | P.PN ---
Subjective Progress Note Date: 02/23/21 Jeremy Ridley is a 70 yo M with PMH of HLD, who presented to the ED complaining of 2 day history of worsening abdominal pain. He complains he had been constipated for a few days and noticing constant aching suprapubic pain. He tried laxatives and enema without any improvement so came to the ED. He denies c hills, nausea, vomiting. On presentation he was tachycardic and febrile, WBC 17k, lactic 3.3, COVID negative. CT abd/pelvis with sigmoid diverticulitis and fluid pocket. 02/22/2021 postop day #3 sigmoid colectomy with end colostomy for perforated sigmoid diverticulitis. complains of abdominal pain. Nauseated on clear liquid diet. Minimal drainage from ostomy. Afebrile, T-max 99.3, WBC increased to 13.6. Preliminary blood cultures reporting no growth at 72 hours. Sodium normalized .Renal function stable. Maintaining O2 sats in the 90s on 3 L nasal cannula. 02/23/2021 postop day #4. NPO,NG inserted yesterday with significant improvement in abdominal distention. 650 MLS of bilious drainage overnight. Ostomy without bowel movement or flatus. Abdominal x-ray pending. Maintained on IV fluid hydration. Maintaining O2 sats in the 90s on 3-4 L nasal cannula O2. Afebrile, WBC 13.2. Hemoglobin 14.6, platelets 241. Sodium 144, potassium 3.4, bicarb 20, renal function stable. Objective - Vital Signs Vital signs: Vital Signs Temp 97.7 F 02/23/21 09:20 Pulse 64 02/23/21 09:20 Resp 18 02/23/21 09:20 BP 141/81 02/23/21 09:20 Pulse Ox 97 02/23/21 09:20 Intake & Output 02/22/21 02/23/21 02/23/21 18:59 06:59 18:59 Intake Total 118 Output Total 0 650 15 Balance 118 -650 -15 Weight 81.647 kg Intake: Oral 118 Output: Gastric Drainage 650 Stool 0 0 15 Other: Voiding Method Indwelling Catheter Indwelling Catheter Indwelling Catheter - Exam General: Alert and oriented 3, Sitting up in bed, no acute distress. NAD. Vitals reviewed Eyes: PERRL, EOMI, conjunctiva normal HENT: normocephalic, NG tube present. Neck: supple, no JVD Lungs: normal respiratory effort, no wheezes or rales CV: Regular rate and rhythm, no murmur. Peripheral pulses 2+ Abdomen: soft, distended, status post surgery-tender, ostomy with recently changed appliance, no drainage Skin: warm and dry. Neuro: No focal deficits - Labs CBC & Chem 7: 02/23/21 09:49 02/23/21 09:49 Labs: Abnormal Lab Results - Last 24 Hours (Table) 02/23/21 02/23/21 Range/Units 09:49 09:49 WBC 13.2 H (3.8-10.6) k/uL MCV 101.2 H (80.0-100.0) fL Neutrophils # 11.0 H (1.3-7.7) k/uL Potassium 3.4 L (3.5-5.1) mmol/L Chloride 112 H (98-107) mmol/L Carbon Dioxide 20 L (22-30) mmol/L Creatinine 0.61 L (0.66-1.25) mg/dL Microbiology - Last 24 Hours (Table) 02/18/21 23:45 Blood Culture - Preliminary Blood No Growth after 96 hours 02/18/21 23:30 Blood Culture - Preliminary Blood No Growth after 96 hours Assessment and Plan Assessment: Sepsis secondary to perforated diverticulitis. Status post sigmoid colectomy with end colostomy Postoperative ileus, probable Acute hypoxic respiratory failure, postop Hypokalemia Basilar atelectasis Plan: Continue on current medication regime ,monitoring and symptomatic treatment. Potassium replacement protocol ordered. IV fluid hydration. Increase ambulation as tolerated. Aggressive pulmonary toileting with incentive spirometer reinforced. Ostomy teaching /education. The impression and plan of care has been dictated as directed. : I performed a history and examination of this patient, discussed the same with the dictator. I agree with the dictator's note ,documented as a scribe. Any additional findings or plans will be noted.
[2021-02-23] MEDS: LORazepam 0.5 MG TAB PO SCH (22:26)
[2021-02-24] MEDS: METOCLOPRAMIDE 5 MG/ML 2 ML VIAL IVP SCH ×4 (05:53→23:05)
[2021-02-24] MEDS: KETOROLAC 30 MG/ML 1 ML VIAL IVP SCH ×4 (05:54→23:06)
[2021-02-24 06:31] LABS: Basophils # (A) 0.1 k/uL (0-0.2); Basophils % (A) 1 %; Eosinophils # (A) 0.1 k/uL (0-0.7); Eosinophils % (A) 1 %; HCT 41.1 % (39.0-53.0); Hypochromasia Slight; Lymphocytes # (A) 1.1 k/uL (1.0-4.8); Lymphocytes % (A) 8 %; MCHC 31.6 g/dL (31.0-37.0); MCV 104.5 fL (80.0-100.0); Macrocytosis Slight; Mean Platelet Volume 8.4; Monocytes # (A) 0.7 k/uL (0-1.0); Monocytes % (A) 5 %; Neutrophils # (A) 10.9 k/uL (1.3-7.7); Neutrophils % (A) 83 %; Platelet Count 242 k/uL (150-450); RBC 3.93 m/uL (4.30-5.90); RDW 12.4 % (11.5-15.5); WBC 13.1 k/uL (3.8-10.6)
[2021-02-24 06:48] LABS: African American GFR (CKD) >90 (>60 ml/min/1.73 sqM); Anion Gap 10 mmol/L; Blood Urea Nitrogen 15 mg/dL (9-20); Calcium 8.2 mg/dL (8.4-10.2); Carbon Dioxide 16 mmol/L (22-30); Chloride 118 mmol/L (98-107); Glucose 91 mg/dL (74-99); Magnesium 2.4 mg/dL (1.6-2.3); Non-African American GFR(CKD) >90 (>60 ml/min/1.73 sqM); Potassium 3.6 mmol/L (3.5-5.1); Sodium 144 mmol/L (137-145)
--- NOTE | 2021-02-24 09:09 | XR ---
EXAMINATION TYPE: XR abdomen 2V DATE OF EXAM: 02/24/2021 COMPARISON: 02/23/2021 HISTORY: Follow-up ileus TECHNIQUE: One view abdominal series FINDINGS: Cardiomegaly with interstitial pattern and bibasilar infiltrate with small effusions. Severe scoliosi s. The bowel gas pattern nonspecific with dilated small bowel loops. Surgical sonny are seen and th ere is arthropathy of the hips. Ileus or partial obstruction in the differential diagnosis. IMPRESSION: 1. Bilateral airspace disease correlate for CHF or pneumonia. 2. Nonspecific abdomen with persistent dilated small bowel loop in the mid abdomen correlate for ileu s or partial obstruction
[2021-02-24] MEDS: PIPERACILLIN-TAZOBACTAM 3.375 GM in SODIUM CHLORIDE 0.9% 100 ML IVPB SCH ×3 (09:43→23:16)
[2021-02-24] MEDS: FAMOTIDINE 20 MG/2 ML VIAL IV SCH ×2 (09:43→20:54)
[2021-02-24] MEDS: HEPARIN SODIUM,PORCINE/PF 5,000 UNIT/0.5 ML SYRINGE SQ SCH ×3 (09:43→20:55)
--- NOTE | 2021-02-24 11:18 | P.PN ---
<Ely Rice - Last Filed: 02/24/21 11:13> Subjective Progress Note Date: 02/24/21 CHIEF COMPLAINT: Perforated sigmoid diverticulitis HISTORY OF PRESENT ILLNESS: Patient is postop Day #5 status post sigmoid colectomy with end colostomy for perforated sigmoid diverticulitis. Patient's ostomy is functioning. He reports his abdominal pain has decreased greatly. Denies any nausea. He is requesting a Pepsi. Afebrile. WBC 13.1 hemoglobin 13 platelets 242 sodium 144 potassium 3.6 creatinine 0.64 magnesium 2.4 PHYSICAL EXAM: VITAL SIGNS: Reviewed. GENERAL: Well-developed in no acute distress. HEENT: No sclera icterus. Extraocular movements grossly intact. Moist buccal mucosa. Head is atraumatic, normocephalic. ABDOMEN: Soft. Mildly distended. Incision site with 3 terrance with serosanguineous drainage. Otherwise incision is clean and intact. Ostomy with stool and air present. NEUROLOGIC: Alert and oriented. Cranial nerves II through XII grossly intact. ASSESSMENT: 1. Perforated sigmoid diverticulitis status post sigmoid colectomy with end colostomy 2. Postoperative ileus 3. Hypokalemia improved PLAN: -Discontinue NG tube -Start clear liquid diet. Okay for patient to have sips of Pepsi -Continue Reglan 10 mg IV every 6 -Continue Toradol 50 mg IV every 6 for pain -Encourage patient to ambulate -Encourage patient to use incentive spirometer -GI prophylaxis Pepcid and DVT prophylaxis subcu heparin Physician Battery Tester Field note has been reviewed by physician. Signing provider agrees with the documented findings, assessment, and plan of care. Objective - Vital Signs Vital signs: Vital Signs Temp 97.7 F 02/24/21 03:18 Pulse 62 02/24/21 03:18 Resp 18 02/24/21 03:18 BP 127/65 02/24/21 03:18 Pulse Ox 91 L 02/24/21 03:18 Intake & Output 02/23/21 02/24/21 02/24/21 18:59 06:59 18:59 Intake Total 1000 1200 Output Total 815 415 Balance 185 785 Weight 81.647 kg Intake: Intake, IV Titration 1000 1200 Amount ACETAMINOPHEN IV (For NPO 100 ) 1,000 mg In Empty Bag 1 bag @ 400 mls/hr IVPB Q6H [facility] Rx#:[id number] Piperacillin-Tazobactam 3 100 .375 gm In Sodium Chloride 0.9% 100 ml @ 25 mls/hr IVPB Q8HR [facility] Rx# :[id number] Potassium Chloride 10 meq 200 In Water For Injection 1 100ml.bag @ 100 mls/hr IVPB Q1H [facility] Rx#: [id number] Sodium Chloride 0.9% 1, 600 1200 000 ml @ 75 mls/hr IV . [id number] [facility] Rx#:[id number] Output: Gastric Drainage 800 Urine 400 Stool 15 15 Other: Voiding Method Indwelling Catheter Indwelling Catheter - Labs CBC & Chem 7: 02/24/21 06:19 02/24/21 06:19 Labs: Abnormal Lab Results - Last 24 Hours (Table) 02/24/21 02/24/21 Range/Units 06:19 06:19 WBC 13.1 H (3.8-10.6) k/uL RBC 3.93 L (4.30-5.90) m/uL MCV 104.5 H (80.0-100.0) fL Neutrophils # 10.9 H (1.3-7.7) k/uL Chloride 118 H (98-107) mmol/L Carbon Dioxide 16 L (22-30) mmol/L Creatinine 0.64 L (0.66-1.25) mg/dL Calcium 8.2 L (8.4-10.2) mg/dL Magnesium 2.4 H (1.6-2.3) mg/dL Microbiology - Last 24 Hours (Table) 02/18/21 23:45 Blood Culture - Preliminary Blood No Growth after 120 hours 02/18/21 23:30 Blood Culture - Preliminary Blood No Growth after 120 hours <Claus Vizcarra - Last Filed: 02/24/21 12:12> Subjective As above. Patient is doing better today. He had a large amount of stool. We'll remove nasogastric tube. Begin liquid diet. Ambulate. Objective - Vital Signs Vital signs: Vital Signs Temp 97.7 F 02/24/21 03:18 Pulse 62 02/24/21 03:18 Resp 18 02/24/21 03:18 BP 127/65 02/24/21 03:18 Pulse Ox 91 L 02/24/21 03:18 Intake & Output 02/23/21 02/24/2102/24/21 18:59 06:59 18:59 Intake Total 1000 1200 Output Total 815 415 Balance 185 785 Weight 81.647 kg Intake: Intake, IV Titration 1000 1200 Amount ACETAMINOPHEN IV (For NPO 100 ) 1,000 mg In Empty Bag 1 bag @ 400 mls/hr IVPB Q6H [facility] Rx#:[id number] Piperacillin-Tazobactam 3 100 .375 gm In Sodium Chloride 0.9% 100 ml @ 25 mls/hr IVPB Q8HR [facility] Rx# :[id number] Potassium Chloride 10 meq 200 In Water For Injection 1 100ml.bag @ 100 mls/hr IVPB Q1H [facility] Rx#: [id number] Sodium Chloride 0.9% 1, 600 1200 000 ml @ 75 mls/hr IV . [id number] [facility] Rx#:[id number] Output: Gastric Drainage 800 Urine 400 Stool 15 15 Other: Voiding Method Indwelling Catheter Indwelling Catheter Indwelling Catheter - Labs CBC & Chem 7: 02/24/21 06:19 02/24/21 06:19 Labs: Abnormal Lab Results - Last 24 Hours (Table) 02/24/21 02/24/21 Range/Units 06:19 06:19 WBC 13.1 H (3.8-10.6) k/uL RBC 3.93 L (4.30-5.90) m/uL MCV 104.5 H (80.0-100.0) fL Neutrophils # 10.9 H (1.3-7.7) k/uL Chloride 118 H (98-107) mmol/L Carbon Dioxide 16 L (22-30) mmol/L Creatinine 0.64 L (0.66-1.25) mg/dL Calcium 8.2 L (8.4-10.2) mg/dL Magnesium 2.4 H (1.6-2.3) mg/dL Microbiology - Last 24 Hours (Table) 02/18/21 23:45 Blood Culture - Preliminary Blood No Growth after 120 hours 02/18/21 23:30 Blood Culture - Preliminary Blood No Growth after 120 hours Assessment and Plan (1) Diverticulitis Current Visit: Yes Status: Acute Code(s): K57.92 - DVTRCLI OF INTEST, PART UNSP, W/O PERF OR ABSCESS W/O BLEED SNOMED Code(s): 015307918
--- NOTE | 2021-02-24 15:17 | P.PN ---
Subjective Progress Note Date: 02/24/21 Jeremy Ridley is a 70 yo M with PMH of HLD, who presented to the ED complaining of 2 day history of worsening abdominal pain. He complains he had been constipated for a few days and noticing constant aching suprapubic pain. He tried laxatives and enema without any improvement so came to the ED. He denies c hills, nausea, vomiting. On presentation he was tachycardic and febrile, WBC 17k, lactic 3.3, COVID negative. CT abd/pelvis with sigmoid diverticulitis and fluid pocket. 02/22/2021 postop day #3 sigmoid colectomy with end colostomy for perforated sigmoid diverticulitis. complains of abdominal pain. Nauseated on clear liquid diet. Minimal drainage from ostomy. Afebrile, T-max 99.3, WBC increased to 13.6. Preliminary blood cultures reporting no growth at 72 hours. Sodium normalized .Renal function stable. Maintaining O2 sats in the 90s on 3 L nasal cannula. 02/23/2021 postop day #4. NPO,NG inserted yesterday with significant improvement in abdominal distention. 650 MLS of bilious drainage overnight. Ostomy without bowel movement or flatus. Abdominal x-ray pending. Maintained on IV fluid hydration. Maintaining O2 sats in the 90s on 3-4 L nasal cannula O2. Afebrile, WBC 13.2. Hemoglobin 14.6, platelets 241. Sodium 144, potassium 3.4, bicarb 20, renal function stable. 02/24/2021 maintained on IV fluid hydration, functioning Ostomy. 24 hour I&O reports 800 MLS of NG drainage. Denies nausea, vomiting or abdominal pain. Afebrile, WBC 13.1. Oxygen weaned off, currently maintaining O2 sats in the low 90s on room air. Objective - Vital Signs Vital signs: Vital Signs Temp 97.7 F 02/24/21 03:18 Pulse 62 02/24/21 03:18 Resp 18 02/24/21 03:18 BP 127/65 02/24/21 03:18 Pulse Ox 91 L 02/24/21 03:18 Intake & Output 02/23/21 02/24/21 02/24/21 18:59 06:59 18:59 Intake Total 1000 1200 Output Total 815 415 600 Balance 185 785 -600 Weight 81.647 kg Intake: Intake, IV Titration 1000 1200 Amount ACETAMINOPHEN IV (For NPO 100 ) 1,000 mg In Empty Bag 1 bag @ 400 mls/hr IVPB Q6H [facility] Rx#:[id number] Piperacillin-Tazobactam 3 100 .375 gm In Sodium Chloride 0.9% 100 ml @ 25 mls/hr IVPB Q8HR [facility] Rx# :[id number] Potassium Chloride 10 meq 200 In Water For Injection 1 100ml.bag @ 100 mls/hr IVPB Q1H [facility] Rx#: [id number] Sodium Chloride 0.9% 1, 600 1200 000 ml @ 75 mls/hr IV . [id number] [facility] Rx#:[id number] Output: Gastric Drainage 800 600 Urine 400 Stool 15 15 Other: Voiding Method Indwelling Catheter Indwelling Catheter Indwelling Catheter # Bowel Movements 1 - Exam General: Alert and oriented 3, Sitting up in bed, no acute distress. NAD. Vitals reviewed Eyes: PERRL, EOMI, conjunctiva normal HENT: normocephalic, NG tube present. Neck: supple, no JVD Lungs: normal respiratory effort, no wheezes or rales CV: Regular rate and rhythm, no murmur. Peripheral pulses 2+ Abdomen: soft, less distended, status post surgery-tender, ostomy with stool Skin: warm and dry. Neuro: No focal deficits - Labs CBC & Chem 7: 02/24/21 06:19 12 06:19 Labs: Abnormal Lab Results - Last 24 Hours (Table) 02/24/21 02/24/21 Range/Units 06:19 06:19 WBC 13.1 H (3.8-10.6) k/uL RBC 3.93 L (4.30-5.90) m/uL MCV 104.5 H (80.0-100.0) fL Neutrophils # 10.9 H (1.3-7.7) k/uL Chloride 118 H (98-107) mmol/L Carbon Dioxide 16 L (22-30) mmol/L Creatinine 0.64 L (0.66-1.25) mg/dL Calcium 8.2 L (8.4-10.2) mg/dL Magnesium 2.4 H (1.6-2.3) mg/dL Microbiology - Last 24 Hours (Table) 02/18/21 23:45 Blood Culture - Preliminary Blood No Growth after 120 hours 02/18/21 23:30 Blood Culture - Preliminary Blood No Growth after 120 hours Assessment and Plan Assessment: Sepsis secondary to perforated diverticulitis. Status post sigmoid colectomy with end colostomy Postoperative ileus, probable Acute hypoxic respiratory failure, postop Hypokalemia, resolved Basilar atelectasis Plan: Continue on current medication regime ,monitoring and symptomatic treat ment. IV fluid hydration. NG tube ordered to be discontinued with diet advancement as per surgery. Increase ambulation as tolerated. Aggressive pulmonary toileting with incentive spirometer reinforced. Reinforce Ostomy teaching /education. The impression and plan of care has been dictated as directed. : I performed a history and examination of this patient, discussed the same with the dictator. I agree with the dictator's note ,documented as a scribe. Any additional findings or plans will be noted.
[2021-02-24] MEDS: LORazepam 0.5 MG TAB PO SCH (20:55)
[2021-02-24] MEDS: SODIUM CHLORIDE 0.9% 1,000 ML IV SCH ×2 (20:56→23:13)
--- NOTE | 2021-02-24 22:21 | XR ---
EXAMINATION TYPE: XR chest 1V portable DATE OF EXAM: 02/24/2021 COMPARISON: 02/22/2021 HISTORY: Short of breath TECHNIQUE: FINDINGS: There is some infiltrate and atelectasis in both lower lobes. There is no gross heart failu re. Heart is top normal in size. There is no definite pleural effusion. IMPRESSION: Bilateral lower lobe patchy infiltrate and atelectasis without significant change compare d to recent exam.
[2021-02-24] MEDS ORDERED: traZODone HCL 50 MG TAB PO SCH (23:30)
[2021-02-24] MEDS ORDERED: IPRATROPIUM-ALBUTEROL 3 ML NEB INHALATION PRN (23:40)
[2021-02-24] MEDS ORDERED: traZODone HCL 50 MG TAB PO PRN (23:50)
[2021-02-25] MEDS: KETOROLAC 30 MG/ML 1 ML VIAL IVP SCH (05:18)
[2021-02-25] MEDS: METOCLOPRAMIDE 5 MG/ML 2 ML VIAL IVP SCH ×4 (05:19→23:33)
[2021-02-25] MEDS: PIPERACILLIN-TAZOBACTAM 3.375 GM in SODIUM CHLORIDE 0.9% 100 ML IVPB SCH ×3 (08:37→23:32)
[2021-02-25] MEDS: FAMOTIDINE 20 MG/2 ML VIAL IV SCH ×2 (08:38→20:49)
[2021-02-25] MEDS: HEPARIN SODIUM,PORCINE/PF 5,000 UNIT/0.5 ML SYRINGE SQ SCH ×3 (08:38→20:48)
[2021-02-25] MEDS: IPRATROPIUM-ALBUTEROL 3 ML NEB INHALATION SCH ×4 (08:52→21:47)
[2021-02-25 08:56] LABS: Basophils # (A) 0.1 k/uL (0-0.2); Basophils % (A) 1 %; Eosinophils # (A) 0.4 k/uL (0-0.7); Eosinophils % (A) 3 %; HGB 12.8 gm/dL (13.0-17.5); Lymphocytes # (A) 1.1 k/uL (1.0-4.8); Lymphocytes % (A) 9 %; MCH 33.6 pg (25.0-35.0); MCHC 32.7 g/dL (31.0-37.0); MCV 102.6 fL (80.0-100.0); Macrocytosis Slight; Monocytes # (A) 0.3 k/uL (0-1.0); Monocytes % (A) 3 %; Neutrophils # (A) 9.6 k/uL (1.3-7.7); Neutrophils % (A) 81 %; Platelet Count 309 k/uL (150-450); RBC 3.81 m/uL (4.30-5.90); WBC 11.8 k/uL (3.8-10.6)
--- NOTE | 2021-02-25 11:50 | P.PN ---
<Ely Rice - Last Filed: 02/25/21 11:44> Subjective Progress Note Date: 02/25/21 CHIEF COMPLAINT: Perforated sigmoid diverticulitis HISTORY OF PRESENT ILLNESS: Patient is postop Day #6 status post sigmoid colectomy with end colostomy for perforated sigmoid diverticulitis. Patient's ostomy is functioning. He met with ostomy nurse for ostomy teaching. He is sitting at bedside chair. He reports that his pain is getting better each day. Denies any nausea or vomiting. Tolerating clear liquids. Afebrile. WBC trending down from 13.1 11.8 Hgb 12.8 platelets 309. BMP pending PHYSICAL EXAM: VITAL SIGNS: Reviewed. GENERAL: Well-developed in no acute distress. HEENT: No sclera icterus. Extraocular movements grossly intact. Moist buccal mucosa. Head is atraumatic, normocephalic. ABDOMEN: Soft. Mildly distended. Incision site with 3 terrance with serosanguineous drainage. Otherwise incision is clean and intact. Ostomy bag recently currently empty and recently changed NEUROLOGIC: Alert and oriented. Cranial nerves II through XII grossly intact. ASSESSMENT: 1. Perforated sigmoid diverticulitis status post sigmoid colectomy with end colostomy 2. Postoperative ileus improved 3. Hypokalemia improved 4. Atelectasis PLAN: -Discontinue Barros catheter -Continue clear liquids -Continue Reglan 10 mg IV every 6 -add norco PRN pain -Encourage patient to ambulate -Encourage patient to use incentive spirometer -GI prophylaxis Pepcid and DVT prophylaxis subcu heparin Physician Belt Weaver note has been reviewed by physician. Signing provider agrees with the documented findings, assessment, and plan of care. Objective - Vital Signs Vital signs: Vital Signs Temp 97.9 F 02/25/21 08:56 Pulse 88 02/25/21 09:01 Resp 16 02/25/21 09:01 BP 129/74 02/25/21 08:56 Pulse Ox 96 02/25/21 08:56 Intake & Output 02/24/21 02/25/21 02/25/21 18:59 06:59 18:59 Intake Total 6800 Output Total 600 350 Balance -600 6450 Intake: Intake, IV Titration 6800 Amount Sodium Chloride 0.9% 1, 6800 000 ml @ 75 mls/hr IV . [id number] [facility] Rx#:[id number] Output: Gastric Drainage 600 Urine 350 Other: Voiding Method Indwelling Catheter Indwelling Catheter # Bowel Movements 1 - Labs CBC & Chem 7: 02/25/21 05:47 02/24/21 06:19 Labs: Abnormal Lab Results - Last 24 Hours (Table) 02/25/21 02/25/21 Range/Units 05:47 05:47 WBC 11.8 H (3.8-10.6) k/uL RBC 3.81 L (4.30-5.90) m/uL Hgb 12.8 L (13.0-17.5) gm/dL MCV 102.6 H (80.0-100.0) fL Neutrophils # 9.6 H (1.3-7.7) k/uL Procalcitonin 1.20 H (0.02-0.09) ng/mL Microbiology - Last 24 Hours (Table) 02/18/21 23:45 Blood Culture - Final Blood No Growth after 144 hours 02/18/21 23:30 Blood Culture - Final Blood No Growth after 144 hours <Claus Vizcarra - Last Filed: 02/25/21 16:40> Subjective As above. Patient remains somewhat anxious. Has mild bloating. No nausea or vomiting. Patient with less ostomy output today. His Barros catheter was removed. He is having a bit of urinary retention currently. May require Barros catheter replacement. Continue increasing activity. Maintain clear liquids for now. Objective - Vital Signs Vital signs: Vital Signs Temp 98.4 F 02/25/21 13:52 Pulse 62 02/25/21 13:52 Resp 18 02/25/21 13:52 BP 124/80 02/25/21 13:52 Pulse Ox 95 02/25/21 13:52 Intake & Output 02/24/21 02/25/21 02/25/21 18:59 06:59 18:59 Intake Total 6800 700 Output Total 600 350 400 Balance -600 6450 300 Intake: Intake, IV Titration 6800 700 Amount Piperacillin-Tazobactam 3 100 .375 gm In Sodium Chloride 0.9% 100 ml @ 25 mls/hr IVPB Q8HR [facility] Rx# :[id number] Sodium Chloride 0.9% 1, 6800 600 000 ml @ 75 mls/hr IV . [id number] [facility] Rx#:[id number] Output: Gastric Drainage 600 Urine 350 400 Other: Voiding Method Indwelling Catheter Indwelling Catheter Indwelling Catheter # Bowel Movements 1 - Labs CBC & Chem 7: 02/25/21 05:47 02/24/21 06:19 Labs: Abnormal Lab Results - Last 24 Hours (Table) 02/25/21 02/25/21 Range/Units 05:47 05:47 WBC 11.8 H (3.8-10.6) k/uL RBC 3.81 L (4.30-5.90) m/uL Hgb 12.8 L (13.0-17.5) gm/dL MCV 102.6 H (80.0-100.0) fL Neutrophils # 9.6 H (1.3-7.7) k/uL Procalcitonin 1.20 H (0.02-0.09) ng/mL Microbiology - Last 24 Hours (Table) 02/18/21 23:45 Blood Culture - Final Blood No Growth after 144 hours 02/18/21 23:30 Blood Culture - Final Blood No Growth after 144 hours Assessment and Plan (1) Diverticulitis Current Visit: Yes Status: Acute Code(s): K57.92 - DVTRCLI OF INTEST, PART UNSP, W/O PERF OR ABSCESS W/O BLEED SNOMED Code(s): 155909394
--- NOTE | 2021-02-25 13:50 | P.PN ---
Subjective Progress Note Date: 02/25/21 Jeremy Ridley is a 70 yo M with PMH of HLD, who presented to the ED complaining of 2 day history of worsening abdominal pain. He complains he had been constipated for a few days and noticing constant aching suprapubic pain. He tried laxatives and enema without any improvement so came to the ED. He denies c hills, nausea, vomiting. On presentation he was tachycardic and febrile, WBC 17k, lactic 3.3, COVID negative. CT abd/pelvis with sigmoid diverticulitis and fluid pocket. 02/22/2021 postop day #3 sigmoid colectomy with end colostomy for perforated sigmoid diverticulitis. complains of abdominal pain. Nauseated on clear liquid diet. Minimal drainage from ostomy. Afebrile, T-max 99.3, WBC increased to 13.6. Preliminary blood cultures reporting no growth at 72 hours. Sodium normalized .Renal function stable. Maintaining O2 sats in the 90s on 3 L nasal cannula. 02/23/2021 postop day #4. NPO,NG inserted yesterday with significant improvement in abdominal distention. 650 MLS of bilious drainage overnight. Ostomy without bowel movement or flatus. Abdominal x-ray pending. Maintained on IV fluid hydration. Maintaining O2 sats in the 90s on 3-4 L nasal cannula O2. Afebrile, WBC 13.2. Hemoglobin 14.6, platelets 241. Sodium 144, potassium 3.4, bicarb 20, renal function stable. 02/24/2021 maintained on IV fluid hydration, functioning Ostomy. 24 hour I&O reports 800 MLS of NG drainage. Denies nausea, vomiting or abdominal pain. Afebrile, WBC 13.1. Oxygen weaned off, currently maintaining O2 sats in the low 90s on room air. 02/25/2021 NG tube discontinued yesterday.tolerating clear liquid diet. Denies nausea, vomiting.Functioning ostomy. Denies abdominal pain. Afebrile, WBC decreased to 11.8. Pro-calcitonin pending. Maintaining O2 sats in the mid 90s on 4 L nasal cannula. Objective - Vital Signs Vital signs: Vital Signs Temp 97.9 F 02/25/21 08:56 Pulse 88 02/25/21 09:01 Resp 16 02/25/21 09:01 BP 129/74 02/25/21 08:56 Pulse Ox 96 02/25/21 08:56 Intake & Output 02/24/21 02/25/21 02/25/21 18:59 06:59 18:59 Intake Total 6800 Output Total 600 350 Balance -600 6450 Intake: Intake, IV Titration 6800 Amount Sodium Chloride 0.9% 1, 6800 000 ml @ 75 mls/hr IV . [id number] [facility] Rx#:[id number] Output: Gastric Drainage 600 Urine 350 Other: Voiding Method Indwelling Catheter Indwelling Catheter Indwelling Catheter # Bowel Movements 1 - Exam General: Alert and oriented 3, Sitting up in bed, no acute distress. NAD. Vitals reviewed Eyes: PERRL, EOMI, conjunctiva normal HENT: normocephalic, NG tube present. Neck: supple, no JVD Lungs: normal respiratory effort, no wheezes, fine bibasilar crackles CV: Regular rate and rhythm, no murmur. Peripheral pulses 2+ Abdomen: soft, distended, status post surgery-tender, ostomy-recently emptied. Skin: warm and dry. Neuro: No focal deficits - Labs CBC & Chem 7: 02/25/21 05:47 02/24/21 06:19 Labs: Abnormal Lab Results - Last 24 Hours (Table) 02/25/21 02/25/21 Range/Units 05:47 05:47 WBC 11.8 H (3.8-10.6) k/uL RBC 3.81 L (4.30-5.90) m/uL Hgb 12.8 L (13.0-17.5) gm/dL MCV 102.6 H (80.0-100.0) fL Neutrophils # 9.6 H (1.3-7.7) k/uL Procalcitonin 1.20 H (0.02-0.09) ng/mL Microbiology - Last 24 Hours (Table) 02/18/21 23:45 Blood Culture - Final Blood No Growth after 144 hours 02/18/21 23:30 Blood Culture - Final Blood No Growth after 144 hours Assessment and Plan Assessment: Sepsis secondary to perforated diverticulitis. Status post sigmoid colectomy with end colostomy Postoperative ileus, probable Acute hypoxic respiratory failure, postop Hypokalemia, resolved Basilar atelectasis Plan:Continue on current medication regime ,monitoring and symptomatic treatment. IV fluid hydration. NG tube ordered to be discontinued with diet advancement as per surgery. Increase ambulation as tolerated. Aggressive pulmonary toileting with incentive spirometer reinforced. Reinforce Ostomy teaching /education. The impression and plan of care has been dictated as directed. : I performed a history and examination of this patient, discussed the same with the dictator. I agree with the dictator's note ,documented as a scribe. Any additional findings or plans will be noted.
[2021-02-25] MEDS ORDERED: BENZOCAINE/MENTHOL LOZENG 1 EACH LOZENGE MUCOUS MEM PRN (13:54)
[2021-02-25] MEDS: SODIUM CHLORIDE 0.9% 1,000 ML IV SCH (17:06)
[2021-02-25 20:48] LABS: Anion Gap 14.4 mmol/L (10.00-18.00); Calcium 8.5 mg/dL (8.7-10.3); Carbon Dioxide 16.4 mmol/L (20.0-27.5); Non-African American GFR(CKD) 98.3 (60.0-200.0); Potassium 3.3 mmol/L (3.5-5.5)
[2021-02-25] MEDS: LORazepam 0.5 MG TAB PO SCH (20:52)
[2021-02-26] MEDS: SODIUM CHLORIDE 0.9% 1,000 ML IV SCH ×2 (04:35→15:16)
[2021-02-26] MEDS: METOCLOPRAMIDE 5 MG/ML 2 ML VIAL IVP SCH ×4 (06:12→23:31)
[2021-02-26] MEDS: FAMOTIDINE 20 MG/2 ML VIAL IV SCH ×2 (07:58→23:21)
[2021-02-26] MEDS: PIPERACILLIN-TAZOBACTAM 3.375 GM in SODIUM CHLORIDE 0.9% 100 ML IVPB SCH ×3 (07:58→23:35)
[2021-02-26] MEDS: HEPARIN SODIUM,PORCINE/PF 5,000 UNIT/0.5 ML SYRINGE SQ SCH ×3 (07:58→23:26)
[2021-02-26] MEDS: HYDROcodone/APAP 5-325MG 1 EACH TAB PO PRN (08:01)
[2021-02-26] MEDS: IPRATROPIUM-ALBUTEROL 3 ML NEB INHALATION SCH ×4 (08:10→21:05)
--- NOTE | 2021-02-26 09:16 | CDI ---
Documentation Clarification Form Date: 02/26/2021 08:58:08 AM From: Rossi Jean CCS, CCDS Admit Date: 02/18/2021 11:09:00 PM Patient Name: Jeremy Ridley Visit Number: [id number] Discharge Date: ATTENTION: The Clinical Documentation Specialists (CDI) and [facility] Coding Staff appreciate your assistance in clarifying documentation. Please respond to the clarification below the line at the bottom and electronically sign. The CDI & [facility] Coding staff will review the response and follow-up if needed. Please note: Queries are made part of the Legal Health Record. If you have any questions, please contact the author of this message via ITS. Dr. Pritesh Walls: Acute Postoperative Respiratory Failure is documented beginning with the 02/22 Attending Physician Progress Note and documented in subsequent notes. Additional clarification is requested regarding the relationship, if any, that exists between the diagnosis and the procedure. Patients Admitting Diagnosis per the 02/19 H/P: Sepsis secondary to Perforated Diverticulitis Post-Operative Diagnosis per the 02/19 OR Note: Perforated Sigmoid Diverticulitis Procedure performed 02/19: Sigmoid Colectomy with End Colostomy History/Risk Factors per the 02/19 H/P: GERD, Hypertension, Hyperlipidemia, Osteoarthritis, Hypothyroid Clinical Indicators: Presented to the ED on 02/18 with Abdominal Pain & Constipation, mild Nausea. Admit with Diverticulitis 02/18 VS: T 100.7, P 123, R 24, BP 119/59, PO 94 RA 02/19 VS Postop: T 99.1, P 107, R 16, BP 103/69, PO 96 10Lnc 02/22 VS: T 98.3, P 76, R 18, BP 142/79, PO 93 4Lnc 02/22 CXR: Basilar atelectasis. Correlate to exclude pneumonia. Follow-up PA and lateral chest x-ray may be of benefit.NG tube as described. Treatment 02/18: IV Morphine 4 mg x1, IV Zosyn 200 mls/hr x1, IV fl bolus 999 mls/hr q1H, IV Toradol 15mg q6H, IV Zofran 4 mg q8H/prn 02/19: O2 10Lnc - 3Lnc, IV Zosyn 25 mls/hr q8H, IV Flagyl 100 mls/hr x1, Heparin sq, IV Dilaudid prn, IV Tylenol 400 mls/hr q6H 12/6: O2 3-4Lnc, IV Toradol 15 mg q6H, IV KCL 100 mls/hr q1H 12/8 O2 Standby - 2L - 4Lnc, INH Duoneb 3ml q2H/prn What relationship, if any, exists between the diagnosis of Acute Hypoxic Respiratory Failure and the procedure: [ ] Acute Hypoxic Respiratory Failure is a complication of surgical procedure [ ] Acute Hypoxic Respiratory Failure is an expected outcome of the surgical procedure [ ] Acute Hypoxic Respiratory Failure is related to patients co-morbid condition(s) of (please specify): & not a complication of the procedure [ ] Acute Hypoxic Respiratory Failure was Present on Admission [ ] Acute Hypoxic Respiratory Failure was not Present on Admission [ ] Other, please specify: [ ] Unable to determine (Template Last Revised: May 2020) 03/01: Query response is documented in the Attending Physician's 02/26 Progress Note: Acute Hypoxic Respiratory Failure, postop, expected come. (CDS: JIM) AJ
[2021-02-26 09:29] LABS: Basophils # (A) 0.1 k/uL (0-0.2); Basophils % (A) 1 %; Eosinophils # (A) 0.5 k/uL (0-0.7); Eosinophils % (A) 4 %; HCT 38.6 % (39.0-53.0); HGB 12.7 gm/dL (13.0-17.5); Lymphocytes # (A) 1.3 k/uL (1.0-4.8); Lymphocytes % (A) 12 %; MCH 34.1 pg (25.0-35.0); MCHC 32.9 g/dL (31.0-37.0); MCV 103.5 fL (80.0-100.0); Macrocytosis Slight; Mean Platelet Volume 8.4; Monocytes # (A) 0.3 k/uL (0-1.0); Monocytes % (A) 3 %; Neutrophils # (A) 8.9 k/uL (1.3-7.7); Neutrophils % (A) 79 %; Platelet Count 331 k/uL (150-450); RBC 3.73 m/uL (4.30-5.90); RDW 13.2 % (11.5-15.5); WBC 11.2 k/uL (3.8-10.6)
[2021-02-26 09:41] LABS: African American GFR (CKD) >90 (>60 ml/min/1.73 sqM); Anion Gap 10 mmol/L; Blood Urea Nitrogen 11 mg/dL (9-20); Calcium 8.2 mg/dL (8.4-10.2); Carbon Dioxide 19 mmol/L (22-30); Chloride 113 mmol/L (98-107); Glucose 170 mg/dL (74-99); Non-African American GFR(CKD) >90 (>60 ml/min/1.73 sqM); Sodium 142 mmol/L (137-145)
--- NOTE | 2021-02-26 10:27 | P.PN ---
<Ely Rice - Last Filed: 02/26/21 10:21> Subjective Progress Note Date: 02/26/21 CHIEF COMPLAINT: Perforated sigmoid diverticulitis HISTORY OF PRESENT ILLNESS: Patient is postop Day #7 status post sigmoid colectomy with end colostomy for perforated sigmoid diverticulitis. His abdomen appears to be more distended today. He feels more bloated. Denies any increase in abdominal pain. His ostomy is functioning. He did report nausea earlier this morning. Denies any vomiting. Tolerating clear liquids. Reports that he is urinating without difficulty. He also reports cough with mild production of sputum. Afebrile. WBC 11.2 hemoglobin 12.7 platelets 331 sodium 142 potassium 3.0 BUN 11 creatinine 0.5 PHYSICAL EXAM: VITAL SIGNS: Reviewed. GENERAL: Well-developed in no acute distress. HEENT: No sclera icterus. Extraocular movements grossly intact. Moist buccal mucosa. Head is atraumatic, normocephalic. ABDOMEN: Soft. Mildly distended. Incision site with 3 terrance with serosanguineous drainage. Otherwise incision is clean and intact. Ostomy bag recently currently empty and recently changed NEUROLOGIC: Awake and alert. Slightly confused at times. But he had just received pain medication ASSESSMENT: 1. Perforated sigmoid diverticulitis status post sigmoid colectomy with end colostomy 2. Postoperative ileus improved 3. Hypokalemia 4. Atelectasis PLAN: -Check postvoid residual to rule out any urinary retention -Encourage patient to increase activity. We'll have him sit at bedside chair. Consult PT OT -Continue clear liquids -Continue Reglan 10 mg IV every 6 -continue norco PRN pain -Encourage patient to use incentive spirometer -GI prophylaxis Pepcid and DVT prophylaxis subcu heparin Physician Ethylbenzene Oxidizer note has been reviewed by physician. Signing provider agrees with the documented findings, assessment, and plan of care. Objective - Vital Signs Vital signs: Vital Signs Temp 97.8 F 02/26/21 08:09 Pulse 88 02/26/21 08:23 Resp 18 02/26/21 08:09 BP 125/74 02/26/21 08:09 Pulse Ox 94 L 02/26/21 08:12 Intake & Output 02/25/21 02/26/21 02/26/21 18:59 06:59 18:59 Intake Total 1100 600 Output Total 550 100 Balance 550 500 Intake: Intake, IV Titration 1100 600 Amount Piperacillin-Tazobactam 3 200 .375 gm In Sodium Chloride 0.9% 100 ml @ 25 mls/hr IVPB Q8HR [facility] Rx# :[id number] Sodium Chloride 0.9% 1, 900 600 000 ml @ 75 mls/hr IV . [id number] [facility] Rx#:[id number] Output: Urine 550 100 Other: Voiding Method Indwelling Catheter Indwelling Catheter # Bowel Movements 2 - Labs CBC & Chem 7: 02/26/21 08:55 02/26/21 08:55 Labs: Abnormal Lab Results - Last 24 Hours (Table) 02/25/21 02/26/21 02/26/21 Range/Units 05:47 08:55 08:55 WBC 11.2 H (3.8-10.6) k/uL RBC 3.73 L (4.30-5.90) m/uL Hgb 12.7 L (13.0-17.5) gm/dL Hct 38.6 L (39.0-53.0) % MCV 103.5 H (80.0-100.0) fL Neutrophils # 8.9 H (1.3-7.7) k/uL Sodium 147 H (135-145) mmol/L Potassium 3.3 L 3.0 L (3.5-5.5) mmol/L Chloride 116 H 113 H (96-109) mmol/L Carbon Dioxide 16.4 L 19 L (20.0-27.5) mmol/L Creatinine 0.55 L (0.66-1.25) mg/dL Glucose 155 H 170 H (70-110) mg/dL Calcium 8.5 L 8.2 L (8.7-10.3) mg/dL <Claus Vizcarra - Last Filed: 02/26/21 16:50> Subjective As above. Patient doing better today. Urinating well. Stool function improved her ostomy. No nausea or vomiting. Will increase diet at this time. Decrease IV fluids to saline lock. Ambulate. Patient is now agreeable to [facility]CF. Tentatively plan transfer to rehab on Monday. Objective - Vital Signs Vital signs: Vital Signs Temp 98.7 F 02/26/21 14:32 Pulse 90 12/10/21 15:46 Resp 18 02/26/21 14:32 BP 136/95 02/26/21 14:32 Pulse Ox 98 02/26/21 14:32 Intake & Output 02/25/21 02/26/21 02/26/21 18:59 06:59 18:59 Intake Total 1100 600 525 Output Total 550 100 200 Balance 550 500 325 Weight 81.647 kg Intake: Intake, IV Titration 1100 600 525 Amount Piperacillin-Tazobactam 3 200 .375 gm In Sodium Chloride 0.9% 100 ml @ 25 mls/hr IVPB Q8HR [facility] Rx# :[id number] Sodium Chloride 0.9% 1, 900 600 525 000 ml @ 75 mls/hr IV . [id number] [facility] Rx#:[id number] Output: Urine 550 100 200 Other: Voiding Method Indwelling Catheter Indwelling Catheter Urinal # Voids 1 # Bowel Movements 2 - Labs CBC & Chem 7: 02/26/21 08:55 02/26/21 08:55 Labs: Abnormal Lab Results - Last 24 Hours (Table) 02/25/21 02/26/21 02/26/21 Range/Units 05:47 08:55 08:55 WBC 11.2 H (3.8-10.6) k/uL RBC 3.73 L (4.30-5.90) m/uL Hgb 12.7 L (13.0-17.5) gm/dL Hct 38.6 L (39.0-53.0) % MCV 103.5 H (80.0-100.0) fL Neutrophils # 8.9 H (1.3-7.7) k/uL Sodium 147 H (135-145) mmol/L Potassium 3.3 L 3.0 L (3.5-5.5) mmol/L Chloride 116 H 113 H (96-109) mmol/L Carbon Dioxide 16.4 L 19 L (20.0-27.5) mmol/L Creatinine 0.55 L (0.66-1.25) mg/dL Glucose 155 H 170 H (70-110) mg/dL Calcium 8.5 L 8.2 L (8.7-10.3) mg/dL Assessment and Plan (1) Diverticulitis Current Visit: Yes Status: Acute Code(s): K57.92 - DVTRCLI OF INTEST, PART UNSP, W/O PERF OR ABSCESS W/O BLEED SNOMED Code(s): 431453392
[2021-02-26] MEDS: POTASSIUM CHLORIDE ER 20 MEQ TAB.ER PO SCH ×3 (11:49→16:09)
--- NOTE | 2021-02-26 16:58 | P.PN ---
Subjective Progress Note Date: 02/26/21 Jeremy Ridley is a 70 yo M with PMH of HLD, who presented to the ED complaining of 2 day history of worsening abdominal pain. He complains he had been constipated for a few days and noticing constant aching suprapubic pain. He tried laxatives and enema without any improvement so came to the ED. He denies c hills, nausea, vomiting. On presentation he was tachycardic and febrile, WBC 17k, lactic 3.3, COVID negative. CT abd/pelvis with sigmoid diverticulitis and fluid pocket. 02/22/2021 postop day #3 sigmoid colectomy with end colostomy for perforated sigmoid diverticulitis. complains of abdominal pain. Nauseated on clear liquid diet. Minimal drainage from ostomy. Afebrile, T-max 99.3, WBC increased to 13.6. Preliminary blood cultures reporting no growth at 72 hours. Sodium normalized .Renal function stable. Maintaining O2 sats in the 90s on 3 L nasal cannula. 02/23/2021 postop day #4. NPO,NG inserted yesterday with significant improvement in abdominal distention. 650 MLS of bilious drainage overnight. Ostomy without bowel movement or flatus. Abdominal x-ray pending. Maintained on IV fluid hydration. Maintaining O2 sats in the 90s on 3-4 L nasal cannula O2. Afebrile, WBC 13.2. Hemoglobin 14.6, platelets 241. Sodium 144, potassium 3.4, bicarb 20, renal function stable. 02/24/2021 maintained on IV fluid hydration, functioning Ostomy. 24 hour I&O reports 800 MLS of NG drainage. Denies nausea, vomiting or abdominal pain. Afebrile, WBC 13.1. Oxygen weaned off, currently maintaining O2 sats in the low 90s on room air. 02/25/2021 NG tube discontinued yesterday.tolerating clear liquid diet. Denies nausea, vomiting.Functioning ostomy. Denies abdominal pain. Afebrile, WBC decreased to 11.8. Pro-calcitonin pending. Maintaining O2 sats in the mid 90s on 4 L nasal cannula. 02/26/2021 complains of abdominal pain this morning described as "fullness". Tolerating clear liquids, denies nausea or vomiting. Ostomy with stool. Denies any diaphoresis. Denies any cough ,congestion. Labs pending. Afebrile. Denies chest pain, palpitations or shortness of breath. Objective - Vital Signs Vital signs: Vital Signs Temp 97.8 F 02/26/21 08:09 Pulse 88 02/26/21 08:23 Resp 18 02/26/21 08:09 BP 125/74 02/26/21 08:09 Pulse Ox 94 L 02/26/21 08:12 Intake & Output 02/25/21 02/26/21 02/26/21 18:59 06:59 18:59 Intake Total 1100 600 Output Total 550 100 Balance 550 500 Intake: Intake, IV Titration 1100 600 Amount Piperacillin-Tazobactam 3 200 .375 gm In Sodium Chloride 0.9% 100 ml @ 25 mls/hr IVPB Q8HR [facility] Rx# :[id number] Sodium Chloride 0.9% 1, 900 600 000 ml @ 75 mls/hr IV . [id number] [facility] Rx#:[id number] Output: Urine 550 100 Other: Voiding Method Indwelling Catheter Indwelling Catheter # Bowel Movements 2 - Exam General: Alert and oriented 3, Sitting up in bed, no acute distress. NAD. Vitals reviewed Eyes: PERRL, EOMI, conjunctiva normal HENT: normocephalic, NG tube present. Neck: supple, no JVD Lungs: normal respiratory effort, no wheezes, fine bibasilar crackles CV: Regular rate and rhythm, no murmur. Peripheral pulses 2+ Abdomen: soft, mildly distended, status post surgery-tender, ostomy functioning Skin: warm and dry. Neuro: No focal deficits - Labs CBC & Chem 7: 02/26/21 08:55 02/26/21 08:55 Labs: Abnormal Lab Results - Last 24 Hours (Table) 02/25/21 02/26/21 02/26/21 Range/Units 05:47 08:55 08:55 WBC 11.2 H (3.8-10.6) k/uL RBC 3.73 L (4.30-5.90) m/uL Hgb 12.7 L (13.0-17.5) gm/dL Hct 38.6 L (39.0-53.0) % MCV 103.5 H (80.0-100.0) fL Neutrophils # 8.9 H (1.3-7.7) k/uL Sodium 147 H (135-145) mmol/L Potassium 3.3 L 3.0 L (3.5-5.5) mmol/L Chloride 116 H 113 H (96-109) mmol/L Carbon Dioxide 16.4 L 19 L (20.0-27.5) mmol/L Creatinine 0.55 L (0.66-1.25) mg/dL Glucose 155 H 170 H (70-110) mg/dL Calcium 8.5 L 8.2 L (8.7-10.3) mg/dL Assessment and Plan Assessment: Sepsis secondary to perforated diverticulitis. Status post sigmoid colectomy with end colostomy Postoperative ileus, probable Acute hypoxic respiratory failure, postop, expected outcome Hypokalemia, resolved Basilar atelectasis Plan:Continue on current medication regime ,monitoring and symptomatic treatment. Labs pending. Gas-X/simethicone to med regimen. Increase ambulation as tolerated. Aggressive pulmonary toileting with incentive spirometer reinforced. Reinforce Ostomy teaching /education. The impression and plan of care has been dictated as directed. : I performed a history and examination of this patient, discussed the same with the dictator. I agree with the dictator's note ,documented as a scribe. Any additional findings or plans will be noted.
[2021-02-26] MEDS ORDERED: Potassium Replacement Protocol 1 EACH MISC MISCELLANE PRN (16:59)
[2021-02-26] MEDS: SIMETHICONE 80 MG CHEWABLE PO SCH ×2 (17:14→23:22)
[2021-02-26] MEDS: LORazepam 0.5 MG TAB PO SCH (23:21)
[2021-02-27] MEDS ORDERED: Magnesium Replacement Protocol 1 EACH MISC MISCELLANE PRN (01:18)
[2021-02-27] MEDS: METOCLOPRAMIDE 5 MG/ML 2 ML VIAL IVP SCH ×4 (06:08→23:52)
[2021-02-27] MEDS: IPRATROPIUM-ALBUTEROL 3 ML NEB INHALATION SCH ×4 (07:33→23:41)
[2021-02-27] MEDS: FAMOTIDINE 20 MG/2 ML VIAL IV SCH ×2 (07:34→21:55)
[2021-02-27] MEDS: SIMETHICONE 80 MG CHEWABLE PO SCH ×4 (07:35→21:55)
[2021-02-27] MEDS: PIPERACILLIN-TAZOBACTAM 3.375 GM in SODIUM CHLORIDE 0.9% 100 ML IVPB SCH ×3 (07:35→23:52)
[2021-02-27] MEDS: HYDROcodone/APAP 5-325MG 1 EACH TAB PO PRN ×3 (07:35→21:56)
[2021-02-27] MEDS: HEPARIN SODIUM,PORCINE/PF 5,000 UNIT/0.5 ML SYRINGE SQ SCH ×3 (07:35→23:52)
[2021-02-27 09:22] LABS: Basophils # (A) 0.1 k/uL (0-0.2); Basophils % (A) 1 %; Eosinophils # (A) 0.5 k/uL (0-0.7); Eosinophils % (A) 4 %; HCT 40.7 % (39.0-53.0); HGB 13.1 gm/dL (13.0-17.5); Lymphocytes % (A) 9 %; MCH 33.3 pg (25.0-35.0); MCHC 32.2 g/dL (31.0-37.0); MCV 103.3 fL (80.0-100.0); Macrocytosis Slight; Mean Platelet Volume 8.4; Monocytes # (A) 0.3 k/uL (0-1.0); Monocytes % (A) 3 %; Neutrophils # (A) 8.8 k/uL (1.3-7.7); Neutrophils % (A) 81 %; Platelet Count 312 k/uL (150-450); RBC 3.94 m/uL (4.30-5.90); RDW 12.9 % (11.5-15.5); WBC 10.9 k/uL (3.8-10.6)
[2021-02-27 10:14] LABS: African American GFR (CKD) 118.1 (60.0-200.0); Anion Gap 14.7 mmol/L (10.00-18.00); Blood Urea Nitrogen 7.8 mg/dL (9.0-27.0); Carbon Dioxide 15.3 mmol/L (20.0-27.5); Non-African American GFR(CKD) 101.9 (60.0-200.0); Potassium 4.2 mmol/L (3.5-5.5)
--- NOTE | 2021-02-27 10:54 | P.PN ---
Subjective Progress Note Date: 02/27/21 Principal diagnosis: Colon perforation Patient moved rooms. He is happy about that. He did have some abdominal pain this morning after eating a large volume of food. [place] somewhat nauseated. That resolved. Ostomy remains functional. Does not have any significant bloating at this time. He is voiding or right. White blood cell count now normal. Potassium 4.2 today. Apparently he declined physical therapy today. Objective - Vital Signs Vital signs: Vital Signs Temp 98.3 F 02/27/21 04:57 Pulse 64 02/27/21 04:57 Resp 18 02/27/21 04:57 BP 149/85 02/27/21 04:57 Pulse Ox 92 L 02/27/21 04:57 Intake & Output 02/26/21 02/27/21 02/27/21 18:59 06:59 18:59 Intake Total 1245 Output Total 200 910 Balance 1045 -910 Weight 81.647 kg Intake: Intake, IV Titration 525 Amount Sodium Chloride 0.9% 1, 525 000 ml @ 75 mls/hr IV . [id number] [facility] Rx#:[id number] Oral 720 Output: Urine 200 710 Stool 200 Other: Voiding Method Urinal Urinal Urinal # Voids 1 # Bowel Movements 2 - Exam Abdomen: Soft, mild distention, mild tenderness, incision clean and dry, ostomy functioning - Labs CBC & Chem 7: 02/27/21 08:41 02/27/21 05:23 Labs: Abnormal Lab Results - Last 24 Hours (Table) 02/27/21 02/27/21 Range/Units 05:23 08:41 WBC 10.9 H (3.8-10.6) k/uL RBC 3.94 L (4.30-5.90) m/uL MCV 103.3 H (80.0-100.0) fL Neutrophils # 8.8 H (1.3-7.7) k/uL Chloride 111 H (96-109) mmol/L Carbon Dioxide 15.3 L (20.0-27.5) mmol/L BUN 7.8 L (9.0-27.0) mg/dL Calcium 8.0 L (8.7-10.3) mg/dL Assessment and Plan (1) Diverticulitis Narrative/Plan: Patient doing well at this time. Continue regular diet. Ambulate with physical therapy. Saline lock IV 1 not in use. Probable rehab early next week. Current Visit: Yes Status: Acute Code(s): K57.92 - DVTRCLI OF INTEST, PART UNSP, W/O PERF OR ABSCESS W/O BLEED SNOMED Code(s): 342852926
--- NOTE | 2021-02-27 20:35 | P.PN ---
Subjective Jeremy Ridley is a 70 yo M with PMH of HLD, who presented to the ED complaining of 2 day history of worsening abdominal pain. Patient found to have diverticulosis within abscesses about 3 cm. Surgery team also evaluated the patient and he underwent surgery with sigmoid colostomy for his perforated sigmoid colon. The surgery was on 02/19, today he was sitting up in bed, he starts regular diet last night however today he is been having increased abdominal pain but he has also regular bowel movement and patient with no nausea vomiting and he wants to keep regular diet for now. Objective - Vital Signs Vital signs: Vital Signs Temp 98.1 F 02/27/21 12:26 Pulse 93 02/27/21 12:26 Resp 18 02/27/21 12:26 BP 140/82 02/27/21 12:26 Pulse Ox 93 L 02/27/21 12:26 Intake & Output 02/27/21 02/27/21 02/28/21 06:59 18:59 06:59 Output Total 910 Balance -910 Output: Urine 710 Stool 200 Other: Voiding Method Urinal Urinal # Voids 2 # Bowel Movements 2 - Exam GENERAL: The patient is alert and oriented x3, not in any acute distress. Well developed, well nourished. HEENT: Pupils are round and equally reacting to light. EOMI. No scleral icterus. No conjunctival pallor. Normocephalic, atraumatic. No pharyngeal erythema. No thyromegaly. CARDIOVASCULAR: S1 and S2 present. No murmurs, rubs, or gallops. PULMONARY: Chest is clear to auscultation, no wheezing or crackles. -ABDOMEN: Soft, nontender, nondistended, normoactive bowel sounds. No palpable organomegaly. Surgical wound is clean with dressing is in place MUSCULOSKELETAL: No joint swelling or deformity. EXTREMITIES: No cyanosis, clubbing, or pedal edema. NEUROLOGICAL: Gross neurological examination did not reveal any focal deficits. SKIN: No rashes. no petechiae. Surgical wound is clean with a dressing in place - Labs CBC & Chem 7: 02/27/21 08:41 02/27/21 05:23 Labs: Abnormal Lab Results - Last 24 Hours (Table) 02/27/21 02/27/21 Range/Units 05:23 08:41 WBC 10.9 H (3.8-10.6) k/uL RBC 3.94 L (4.30-5.90) m/uL MCV 103.3 H (80.0-100.0) fL Neutrophils # 8.8 H (1.3-7.7) k/uL Chloride 111 H (96-109) mmol/L Carbon Dioxide 15.3 L (20.0-27.5) mmol/L BUN 7.8 L (9.0-27.0) mg/dL Calcium 8.0 L (8.7-10.3) mg/dL Assessment and Plan Assessment: Perforated sigmoid colon status post sigmoid colostomy Sepsis secondary to above with fever and mild leukocytosis Hyperlipidemia Plan: This is a pleasant 70 years old male who presents with perforated viscous status post colostomy. Continue with regular diet Patient control Surgery team on the case Labs and medication were reviewed.. Continue same treatment. Continue with symptomatic treatment. Resume home medication. Monitor lytes and vitals. DVT and GI prophylaxis. Further recommendations as per clinical course of the patient DVT prophylaxis: Subcutaneous heparin GI Prophylaxis: Pepcid PT/OT: Recommended subacute rehab, social studies teacher consult
[2021-02-27] MEDS: LORazepam 0.5 MG TAB PO SCH (21:55)
[2021-02-28] MEDS: METOCLOPRAMIDE 5 MG/ML 2 ML VIAL IVP SCH (05:23)
[2021-02-28] MEDS: IPRATROPIUM-ALBUTEROL 3 ML NEB INHALATION SCH ×4 (07:25→19:19)
[2021-02-28] MEDS: HEPARIN SODIUM,PORCINE/PF 5,000 UNIT/0.5 ML SYRINGE SQ SCH ×2 (09:07→15:44)
[2021-02-28] MEDS: SIMETHICONE 80 MG CHEWABLE PO SCH ×4 (09:07→20:06)
[2021-02-28] MEDS: PIPERACILLIN-TAZOBACTAM 3.375 GM in SODIUM CHLORIDE 0.9% 100 ML IVPB SCH ×2 (09:08→15:44)
[2021-02-28] MEDS: FAMOTIDINE 20 MG/2 ML VIAL IV SCH (09:08)
--- NOTE | 2021-02-28 09:08 | P.PN ---
Subjective Progress Note Date: 02/28/21 Principal diagnosis: Colon perforation Patient is doing well today. No significant abdominal pain. Tolerating diet. Objective - Vital Signs Vital signs: Vital Signs Temp 98.8 F 02/28/21 04:42 Pulse 74 02/28/21 04:42 Resp 16 02/28/21 04:42 BP 149/95 02/28/21 04:42 Pulse Ox 91 L 02/28/21 04:42 Intake & Output 02/27/21 02/28/21 02/28/21 18:59 06:59 18:59 Intake Total 700 Output Total 900 Balance -200 Intake: Oral 700 Output: Urine 900 Other: Voiding Method Urinal Urinal # Voids 2 - Exam Abdomen: Soft, minimal distention, incisional wounds with small amount of serosanguineous drainage, minimal tenderness, ostomy function - Labs CBC & Chem 7: 02/27/21 08:41 02/27/21 05:23 Labs: Abnormal Lab Results - Last 24 Hours (Table) 02/27/21 02/27/21 Range/Units 05:23 08:41 WBC 10.9 H (3.8-10.6) k/uL RBC 3.94 L (4.30-5.90) m/uL MCV 103.3 H (80.0-100.0) fL Neutrophils # 8.8 H (1.3-7.7) k/uL Chloride 111 H (96-109) mmol/L Carbon Dioxide 15.3 L (20.0-27.5) mmol/L BUN 7.8 L (9.0-27.0) mg/dL Calcium 8.0 L (8.7-10.3) mg/dL Assessment and Plan (1) Diverticulitis Narrative/Plan: Patient seems to be improving. Continue diet as tolerated. Ambulate. Anticipate transfer to rehab tomorrow. Current Visit: Yes Status: Acute Code(s): K57.92 - DVTRCLI OF INTEST, PART UNSP, W/O PERF OR ABSCESS W/O BLEED SNOMED Code(s): 615761987
[2021-02-28] MEDS: FAMOTIDINE 20 MG TAB PO SCH (09:18)
[2021-02-28] MEDS: DOCUSATE 100 MG CAP PO SCH (11:02)
[2021-02-28] MEDS: HYDROcodone/APAP 5-325MG 1 EACH TAB PO PRN ×2 (11:39→20:06)
--- NOTE | 2021-02-28 19:37 | P.PN ---
Subjective Jeremy Ridley is a 70 yo M with PMH of HLD, who presented to the ED complaining of 2 day history of worsening abdominal pain. Patient found to have diverticulosis within abscesses about 3 cm. Surgery team also evaluated the patient and he underwent surgery with sigmoid colostomy for his perforated sigmoid colon. The surgery was on 02/19, today he was sitting up in bed, he starts regular diet last night however today he is been having increased abdominal pain but he has also regular bowel movement and patient with no nausea vomiting and he wants to keep regular diet for now. 02/28/2021 today is able to eat half of his meals and doing well, abdominal pain is expected at the surgical site. He had regular bowel movement yesterday as well. Vitals stable. He remains on Zosyn while off IV fluids. Anticipate discharge soon if he keeps improving Objective - Vital Signs Vital signs: Vital Signs Temp 98.8 F 02/28/21 04:42 Pulse 74 02/28/21 04:42 Resp 16 02/28/21 04:42 BP 149/95 02/28/21 04:42 Pulse Ox 91 L 02/28/21 04:42 Intake & Output 02/27/21 02/28/21 02/28/21 18:59 06:59 18:59 Intake Total 700 Output Total 900 Balance -200 Intake: Oral 700 Output: Urine 900 Other: Voiding Method Urinal Urinal # Voids 2 - Exam GENERAL: The patient is alert and oriented x3, not in any acute distress. Well developed, well nourished. HEENT: Pupils are round and equally reacting to light. EOMI. No scleral icterus. No conjunctival pallor. Normocephalic, atraumatic. No pharyngeal erythema. No thyromegaly. CARDIOVASCULAR: S1 and S2 present. No murmurs, rubs, or gallops. PULMONARY: Chest is clear to auscultation, no wheezing or crackles. -ABDOMEN: Soft, nontender, nondistended, normoactive bowel sounds. No palpable organomegaly. Surgical wound is clean with dressing is in place MUSCULOSKELETAL: No joint swelling or deformity. EXTREMITIES: No cyanosis, clubbing, or pedal edema. NEUROLOGICAL: Gross neurological examination did not reveal any focal deficits. SKIN: No rashes. no petechiae. Surgical wound is clean with a dressing in place - Labs CBC & Chem 7: 02/27/21 08:41 02/27/21 05:23 Assessment and Plan Assessment: Perforated sigmoid colon status post sigmoid colostomy Sepsis secondary to above with fever and mild leukocytosis Hyperlipidemia Urinary retention Plan: This is a pleasant 70 years old male who presents with perforated viscous status post colostomy. Continue with regular diet Pain control Surgery team on the case Labs and medication were reviewed.. Continue same treatment. Continue with symptomatic treatment. Resume home medication. Monitor lytes and vitals. DVT and GI prophylaxis. Further recommendations as per clinical course of the patient DVT prophylaxis: Subcutaneous heparin GI Prophylaxis: Pepcid PT/OT: Recommended subacute rehab, health social work professor consult
[2021-02-28] MEDS: LORazepam 0.5 MG TAB PO SCH (20:06)
[2021-03-01] MEDS: HEPARIN SODIUM,PORCINE/PF 5,000 UNIT/0.5 ML SYRINGE SQ SCH ×2 (00:26→07:19)
[2021-03-01] MEDS: PIPERACILLIN-TAZOBACTAM 3.375 GM in SODIUM CHLORIDE 0.9% 100 ML IVPB SCH ×2 (00:26→07:19)
[2021-03-01] MEDS: FAMOTIDINE 20 MG TAB PO SCH (07:19)
[2021-03-01] MEDS: DOCUSATE 100 MG CAP PO SCH (07:19)
[2021-03-01] MEDS: SIMETHICONE 80 MG CHEWABLE PO SCH ×2 (07:20→13:44)
[2021-03-01] MEDS: IPRATROPIUM-ALBUTEROL 3 ML NEB INHALATION SCH ×2 (08:38→11:50)
[2021-03-01] MEDS: HYDROcodone/APAP 5-325MG 1 EACH TAB PO PRN (10:48)
--- NOTE | 2021-03-01 10:56 | P.PN ---
<Ely Rice - Last Filed: 03/01/21 10:52> Subjective Progress Note Date: 03/01/21 CHIEF COMPLAINT: Perforated sigmoid diverticulitis HISTORY OF PRESENT ILLNESS: Patient is status post sigmoid colectomy with end colostomy for perforated sigmoid diverticulitis. Patient reports that his pain is controlled. He denies any nausea or vomiting. He is tolerating diet. His ostomy is functioning. He is sitting up at bedside chair. Afebrile. No new labs for today. Anticipating discharge to [facility] later today. PHYSICAL EXAM: VITAL SIGNS: Reviewed. GENERAL: Well-developed in no acute distress. HEENT: No sclera icterus. Extraocular movements grossly intact. Moist buccal mucosa. Head is atraumatic, normocephalic. ABDOMEN: Soft. Incision site with 3 terrance with serosanguineous drainage. Otherwise incision is clean and intact. Ostomy with stool and air noted in bag NEUROLOGIC: Awake and alert. Slightly confused at times. But he had just received pain medication ASSESSMENT: 1. Perforated sigmoid diverticulitis status post sigmoid colectomy with end colostomy 2. Postoperative ileus improved 3. Hypokalemia resolved 4. Atelectasis PLAN: -Patient can be discharged from surgical standpoint -continue norco PRN pain -Encouraged patient to increase activity -Encourage patient to use incentive spirometer -GI prophylaxis Pepcid and DVT prophylaxis subcu heparin Physician Agricultural Economics Teacher note has been reviewed by physician. Signing provider agrees with the documented findings, assessment, and plan of care. Objective - Vital Signs Vital signs: Vital Signs Temp 98 F 03/01/21 04:42 Pulse 73 03/01/21 04:42 Resp 16 03/01/21 04:42 BP 138/84 03/01/21 04:42 Pulse Ox 90 L 03/01/21 04:42 Intake & Output 02/28/21 03/01/21 03/01/21 18:59 06:59 18:59 Intake Total 340 400 30 Output Total 1100 1150 100 Balance -760 -750 -70 Intake: Intake, IV Titration 100 100 Amount Piperacillin-Tazobactam 3 100 100 .375 gm In Sodium Chloride 0.9% 100 ml @ 25 mls/hr IVPB Q8HR [facility] Rx# :[id number] Oral 240 300 30 Output: Urine 800 400 Stool 300 750 100 Other: Voiding Method Urinal # Voids 1 # Bowel Movements 1 # Emes[place] 0 - Labs CBC & Chem 7: 02/27/21 08:41 02/27/21 05:23 <Claus Vizcarra - Last Filed: 03/01/21 17:08> Subjective As above. Patient doing well today. Anticipate transfer to rehab. Follow-up next week in office. Objective - Vital Signs Vital signs: Vital Signs Temp 98.6 F 03/01/21 12:52 Pulse 64 03/01/21 12:52 Resp 17 03/01/21 12:52 BP 126/71 03/01/21 12:52 Pulse Ox 94 L 03/01/21 12:52 Intake & Output 02/28/21 03/01/21 03/01/21 18:59 06:59 18:59 Intake Total 340 400 130 Output Total 1100 1150 100 Balance -760 -750 30 Weight 81.647 kg Intake: Intake, IV Titration 100 100 100 Amount Piperacillin-Tazobactam 3 100 100 100 .375 gm In Sodium Chloride 0.9% 100 ml @ 25 mls/hr IVPB Q8HR [facility] Rx# :[id number] Oral 240 300 30 Output: Urine 800 400 Stool 300 750 100 Other: Voiding Method Urinal # Voids 1 4 # Bowel Movements 1 # Emes[place] 0 - Labs CBC & Chem 7: 02/27/21 08:41 02/27/21 05:23 Assessment and Plan (1) Diverticulitis Status: Acute Code(s): K57.92 - DVTRCLI OF INTEST, PART UNSP, W/O PERF OR ABSCESS W/O BLEED SNOMED Code(s): 077096264
--- NOTE | 2021-03-01 12:21 | P.DS ---
Providers Date of admission: 02/18/21 23:09 Expected date of discharge: 03/01/21 Attending physician: Pritesh Walls MD Consults: 02/18/21 23:10 Consult Physician Routine Consulting Provider: Claus Vizcarra Consult Reason/Comments: diverticulitis w abscess Do you want consulting provider notified?: Already Contacted Primary care physician: Mónica Walls Hospital Course: Sepsis secondary to perforated diverticulitis. Status post sigmoid colectomy with end colostomy Postoperative ileus, probable, improved Acute hypoxic respiratory failure, postop, expected outcome Hypokalemia, resolved Basilar atelectasis Hospital course:Jeremy Ridley is a 70 yo M with PMH of HLD, who presented to the ED complaining of 2 day history of worsening abdominal pain. He complains he had been constipated for a few days and noticing constant aching suprapubic pain. He tried laxatives and enema without any improvement so came to the ED. He denies chills, nausea, vomiting. On presentation he was tachycardic and febrile, WBC 17k, lactic 3.3, COVID negative. CT abd/pelvis with sigmoid diverticulitis and fluid pocket. 02/22/2021 postop day #3 sigmoid colectomy with end colostomy for perforated sigmoid diverticulitis. complains of abdominal pain. Nauseated on clear liquid diet. Minimal drainage from ostomy. Afebrile, T-max 99.3, WBC increased to 13.6. Preliminary blood cultures reporting no growth at 72 hours. Sodium normalized .Renal function stable. Maintaining O2 sats in the 90s on 3 L nasal cannula. 02/23/2021 postop day #4. NPO,NG inserted yesterday with significant improvement in abdominal distention. 650 MLS of bilious drainage overnight. Ostomy without bowel movement or flatus. Abdominal x-ray pending. Maintained on IV fluid hydration. Maintaining O2 sats in the 90s on 3-4 L nasal cannula O2. Afebrile, WBC 13.2. Hemoglobin 14.6, platelets 241. Sodium 144, potassium 3.4, bicarb 20, renal function stable. 02/24/2021 maintained on IV fluid hydration, functioning Ostomy. 24 hour I&O reports 800 MLS of NG drainage. Denies nausea, vomiting or abdominal pain. Afebrile, WBC 13.1. Oxygen weaned off, currently maintaining O2 sats in the low 90s on room air. 02/25/2021 NG tube discontinued yesterday.tolerating clear liquid diet. Denies nausea, vomiting.Functioning ostomy. Denies abdominal pain. Afebrile, WBC decreased to 11.8. Pro-calcitonin pending. Maintaining O2 sats in the mid 90s on 4 L nasal cannula. 02/26/2021 complains of abdominal pain this morning described as "fullness". Tolerating clear liquids, denies nausea or vomiting. Ostomy with stool. Denies any diaphoresis. Denies any cough ,congestion. Labs pending. Afebrile. Denies chest pain, palpitations or shortness of breath. And pain controlled.Tolerating diet, with no nausea or vomiting. Ostomy functioning. Afebrile. Maintaining O2 sats in the low 90s on room air. Significant clinical improvement. Denies lightheadedness, dizziness or focal deficits. Denies chest pain, palpitations or shortness of breath. Patient will be discharged to subacute rehab today in a stable condition with guarded prognosis. The impression and plan of care has been dictated as directed. : I performed a history and examination of this patient, discussed the same with the dictator. I agree with the dictator's note ,documented as a scribe. Any additional findings or plans will be noted. Patient Condition at Discharge: Stable Plan - Discharge Summary New Discharge Prescriptions: New HYDROcodone/APAP 5-325MG [Houston 5-325] 1 tab PO Q6HR PRN 3 Days #12 tab PRN Reason: Pain No Action Atorvastatin [Lipitor] 10 mg PO HS Acetaminophen [Tylenol Extra Strength] 500 mg PO HS Docusate Sodium [Dok] 100 mg PO HS Discharge Medication List Atorvastatin [Lipitor] 10 mg PO HS 03/19/19 [History] Acetaminophen [Tylenol Extra Strength] 500 mg PO HS 02/18/21 [History] Docusate Sodium [Dok] 100 mg PO HS 02/18/21 [History] HYDROcodone/APAP 5-325MG [[place] 5-325] 1 tab PO Q6HR PRN 3 Days #12 tab 03/01/21 [Rx] Follow up Appointment(s)/Referral(s): Claus Vizcarra MD [Medical Doctor] - 1 Week Mónica Walls DO [Primary Care Provider] - 1 Week (After DC from subacute rehab) [facility], [NON-STAFF] - As Needed Patient Instructions/Handouts: Diverticulitis (GEN), Colostomy Care (GEN) Activity/Diet/Wound Care/Special Instructions: Last Ostomy pouching system change: 02.28.2021 Colostomy Care Recommendations for Home : Convatec flange moldable #[id number] (3) for Home Convatec pouching system with filter #[id number] (3) Ostomy powder (1) Deng seals (2) if needed for skin creases by stoma No sting prep pads (12) apply around the stoma prior to application of the Convatec flange One piece ostomy Convatec pouches Cut to Fit #[id number] (3) to Rehab for Mr Ridley as well - if one piece works better and this is his request Mr Ridley is to empty the pouch in the bathroom when the pouch is 1/2 to 1/3 full either sitting on the toilet and raining or facing the toilet bowl to drain in the toilet Mr Ridley is to change the pouching system every 3-5 days unit Mr Rildey is able to go into a disposable pouching system Rehab please arrange with Mr Ridley to go into a disposable pouching system in 4-5 weeks after surgery Thank you No driving while taking [place] No lifting over 10 pounds You may shower. No soaking or tub baths for 2 weeks Very light activity until you are reevaluated at your follow up appointment with your surgeon Discharge Disposition: TRANSFER TO SNF/ECF
[2021-03-01 12:53] VITALS: BP 126/71; PULSE 64; RESP 17; TEMP 98.6
== END 2021-03-01 15:52 | DRG 853 ==
LOC: EC 20:20 → 5NMEDONC 23:09 → 1SOBS 02-19 02:25 → 5NMEDONC 02-26 18:00
PROVIDERS: ADMIT Family Medicine; ATTEND Family Medicine
PROC: 0DTN0ZZ Resection of Sigmoid Colon, Open Approach (ICD-10-PCS; 2021-02-19)
PROC: 0D1M0Z4 Bypass Descending Colon to Cutaneous, Open Approach (ICD-10-PCS; principal; 2021-02-19 10:50)
PROC: 0D9670Z Drainage of Stomach with Drainage Device, Via Natural or Artificial Opening (ICD-10-PCS; 2021-02-22)
DX: A41.9 Sepsis, unspecified organism (principal); J96.01 Acute respiratory failure with hypoxia; E87.2 Acidosis; J90 Pleural effusion, not elsewhere classified; J98.11 Atelectasis; K56.7 Ileus, unspecified; K57.20 Diverticulitis of large intestine with perforation and abscess without bleeding; K91.89 Other postprocedural complications and disorders of digestive system; E03.9 Hypothyroidism, unspecified; E78.00 Pure hypercholesterolemia, unspecified; E78.5 Hyperlipidemia, unspecified; E87.6 Hypokalemia; I10 Essential (primary) hypertension; K21.9 Gastro-esophageal reflux disease without esophagitis; M19.90 Unspecified osteoarthritis, unspecified site; Z20.822 Contact with and (suspected) exposure to COVID-19; Z79.899 Other long term (current) drug therapy; Z80.1 Family history of malignant neoplasm of trachea, bronchus and lung; Z87.19 Personal history of other diseases of the digestive system; Z87.891 Personal history of nicotine dependence; R33.9 Retention of urine, unspecified
CPT/HCPCS: 36410; 36415; 71045; 74019; 74177; 76937; 80048; 80053; 81003; 83605; 83735; 84145; 85025; 87040; 87635; 93005; 94640; 94760; 96374; 99285

== ENCOUNTER → 2021-11-29 | Outpatient (CLI) | payer MEDICARE ==
[2021-11-29 14:38] LABS: HCT 45.4 % (39.6-50.0); HGB 15.3 g/dL (13.0-17.0); MCHC 33.7 g/dL (32.0-37.0); Mean Platelet Volume 11.2 fL (9.5-12.2); NRBC Per 100 WBC 0 /100 WBCS (0.0-0.0); Platelet Count 175 X 10*3/uL (140-440); RBC 4.78 X 10*6/uL (4.40-5.60); RDW 12.3 % (11.5-14.5); WBC 6.48 X 10*3/uL (4.50-10.00)
[2021-11-29 15:27] LABS: Anion Gap 9.7 mmol/L (10.00-18.00); Carbon Dioxide 26.3 mmol/L (20.0-27.5); Potassium 4.7 mmol/L (3.5-5.5)
== END | disposition home or self-care (01) ==
LOC: LABPAT 10:16
PROVIDERS: ATTEND Surgery
DX: Z01.812 Encounter for preprocedural laboratory examination (principal); K57.33 Diverticulitis of large intestine without perforation or abscess with bleeding
CPT/HCPCS: 80051; 85027; 93005

== ENCOUNTER 2021-12-09 11:32 | Day surgery (SDC) | payer MEDICARE ==
[~2021-12-09 11:32] MED LIST: LACTATED RINGERS 1,000 ML IV SCH
[2021-12-09 11:52] VITALS: TEMP 97.1
[2021-12-09] MEDS ORDERED: LIDOCAINE 1% (10MG/ML) FOR IV START INTRADERMA ONE (11:53)
[2021-12-09] MEDS ORDERED: PROPOFOL 10 MG/ML 20 ML VIAL IV ONE (12:55)
[2021-12-09] MEDS ORDERED: LIDOCAINE 2% INJ 20 MG/ML (2 ML VIAL) ONE (12:55)
[2021-12-09] MEDS ORDERED: MIDAZOLAM 2 MG/2 ML VIAL ONE (12:55)
[2021-12-09] MEDS ORDERED: fentaNYL (PF) 50 MCG/ML 2 ML AMP ONE (12:55)
--- NOTE | 2021-12-09 13:01 | P.GSHP ---
History of Present Illness H&P Date: 12/09/21 Chief Complaint: Diverticulitis 71-year-old male here today for colonoscopy. Patient had Wilburn's procedure performed earlier this year. Patient is scheduled for colostomy reversal tomorrow. No bowel complaints currently. Past Medical History Past Medical History: GERD/Reflux, Hyperlipidemia, Osteoarthritis (OA) Additional Past Medical History / Comment(s): diverticulitis w/perforation 2020 History of Any Multi-Drug Resistant Organisms: None Reported Past Surgical History: Bowel Resection, Tonsillectomy Additional Past Surgical History / Comment(s): sigmoid resection w/colostomy Past Anesthesia/Blood Transfusion Reactions: No Reported Reaction Smoking Status: Former smoker - Past Family History Father Additional Family Medical History / Comment(s): leaky heart vavle Mother Family Medical History: Cancer Additional Family Medical History / Comment(s): lung ca. never smoked Medications and Allergies Home Medications Medication Instructions Recorded Confirmed Type Atorvastatin [Lipitor] 10 mg PO HS 03/19/19 12/07/21 History Allergies Allergy/AdvReac Type Severity Reaction Status Date / Time No Known Allergies Allergy Verified 12/09/21 11:46 Surgical - Exam Vital Signs Temp Pulse Resp BP Pulse Ox 97.1 F L 79 16 144/81 96 12/09/21 11:48 12/09/21 11:48 12/09/21 11:48 12/09/21 11:48 12/09/21 11:48 Physical exam: General: Well-developed, well-nourished HEENT: Normocephalic, sclerae nonicteric Abdomen: Nontender, nondistended Extremities: No edema Neuro: Alert and oriented Assessment and Plan (1) Diverticulitis Narrative/Plan: Will proceed with colonoscopy at this time Current Visit: No Status: Acute Code(s): K57.92 - DVTRCLI OF INTEST, PART UNSP, W/O PERF OR ABSCESS W/O BLEED SNOMED Code(s): 518861298
--- NOTE | 2021-12-09 13:21 | P.PCN ---
Date of Procedure: 12/09/21 Procedure(s) Performed: PREOPERATIVE DIAGNOSIS: Diverticulitis POSTOPERATIVE DIAGNOSIS: Ascending colon polyp, transverse colon polyp PROCEDURE: Colonoscopy with snare polypectomy and disimpaction ANESTHESIA: MAC SURGEON: Claus Vizcarra M.D. SPECIMENS: Polyps ENDOSCOPIC PROCEDURE: The patient was placed on the endoscopy table in the left decubitus position. The Olympus colonoscope was inserted into the anus and passed under direct visualization to the staple line. The patient had some retained old stool and mucus in the rectum that was manually evacuated. No significant diverticulosis was seen. The scope was then advanced through the stoma to the cecum. From that point the scope was slowly withdrawn inspecting all surfaces carefully. There were no neoplastic inflammatory or polypoid lesions throughout the cecum. In the ascending colon a small polyp was removed using the snare with cautery technique. In the transverse colon another small polyp was seen and removed in a similar fashion. The remainder of the transverse and descending colon appeared normal. There was no visible diver ticulosis on the left colon at this time. The patient was taken to the recovery room in stable condition per anesthesia guidelines. RECOMMENDATIONS: Continue liquid diet. We'll proceed with colostomy reversal tomorrow. Await biopsy results.
[2021-12-09 13:43] VITALS: BP 113/70; PULSE 80; RESP 20
== END 2021-12-09 14:30 | disposition home or self-care (01) ==
LOC: ORWHC2ENDO 11:32
PROVIDERS: ATTEND Surgery
DX: D12.2 Benign neoplasm of ascending colon (principal); D12.3 Benign neoplasm of transverse colon; K57.32 Diverticulitis of large intestine without perforation or abscess without bleeding; K21.9 Gastro-esophageal reflux disease without esophagitis; E78.5 Hyperlipidemia, unspecified; M19.90 Unspecified osteoarthritis, unspecified site; Z90.89 Acquired absence of other organs; Z98.890 Other specified postprocedural states; Z87.891 Personal history of nicotine dependence; Z82.49 Family history of ischemic heart disease and other diseases of the circulatory system; Z80.1 Family history of malignant neoplasm of trachea, bronchus and lung
CPT/HCPCS: 88305; 44394; 44389; J2250; J3010; J2704; J2001; 45385; 86850; 86900; 86901

== ENCOUNTER 2021-12-10 07:45 | Inpatient (IN) | payer MEDICARE ==
[~2021-12-10 07:45] MED LIST changes: +ACETAMINOPHEN TAB 500 MG TAB PO PRN; +ALVIMOPAN 12 MG CAPSULE PO PRN; +DEXAMETHASONE SOD PHOSPHATE 4 MG/ML 1 ML VIAL IV ONE; +HEPARIN SODIUM,PORCINE/PF 5,000 UNIT/0.5 ML SYRINGE SQ PRN; -LACTATED RINGERS 1,000 ML IV SCH; +LIDOCAINE 1% (10MG/ML) FOR IV START INTRADERMA PRN; +MIDAZOLAM 2 MG/2 ML VIAL IV PRN; +ONDANSETRON 4 MG/2 ML VIAL IVP ONE; +metroNIDAZOLE-NS PMX 500 MG in SALINE 1 100ML.BAG IVPB PRN
--- NOTE | 2021-12-10 09:37 | P.GSHP ---
History of Present Illness H&P Date: 12/10/21 Chief Complaint: Diverticulitis 71-year-old male here today for colostomy reversal. Patient underwent Harpal's procedure last February for perforated sigmoid diverticulitis. Underwent colonoscopy yesterday with disimpaction and removal of 2 colon polyps. No significant residual diverticulosis was seen. Patient does have a hernia at the ostomy site as well. Past Medical History Past Medical History: GERD/Reflux, Hyperlipidemia, Osteoarthritis (OA) Additional Past Medical History / Comment(s): diverticulitis w/perforation 2020 History of Any Multi-Drug Resistant Organisms: None Reported Past Surgical History: Bowel Resection, Tonsillectomy Additional Past Surgical History / Comment(s): sigmoid resection w/colostomy Past Anesthesia/Blood Transfusion Reactions: No Reported Reaction Smoking Status: Former smoker - Past Family History Father Additional Family Medical History / Comment(s): leaky heart vavle Mother Family Medical History: Cancer Additional Family Medical History / Comment(s): lung ca. never smoked Medications and Allergies Home Medications Medication Instructions Recorded Confirmed Type Atorvastatin [Lipitor] 10 mg PO HS 03/19/19 12/07/21 History Allergies Allergy/AdvReac Type Severity Reaction Status Date / Time No Known Allergies Allergy Verified 12/09/21 11:46 Surgical - Exam Physical exam: General: Well-developed, well-nourished HEENT: Normocephalic, sclerae nonicteric Abdomen: Nontender, nondistended, left-sided ostomy with hernia Extremities: No edema Neuro: Alert and oriented Assessment and Plan (1) Diverticulitis Narrative/Plan: 71-year-old male with history of perforated sigmoid diverticulitis requiring Harpal procedure. Here today for elective colostomy reversal. Risks of bleeding, infection, hernia, bladder and bowel injury, ureteral injury, possible need for permanent or temporary ostomy, anesthesia related complications reviewed. He understands and wishes to proceed. Current Visit: No Status: Acute Code(s): K57.92 - DVTRCLI OF INTEST, PART UNSP, W/O PERF OR ABSCESS W/O BLEED SNOMED Code(s): 328882200
[2021-12-10] MEDS ORDERED: LACTATED RINGERS 1,000 ML IV ONE ×2 (09:45→13:26)
[2021-12-10] MEDS ORDERED: fentaNYL (PF) 50 MCG/ML 2 ML AMP IV ONE (10:20)
[2021-12-10] MEDS ORDERED: NEOSTIGMINE 1 MG/ML 10 ML VIAL ONE (11:29)
[2021-12-10] MEDS ORDERED: LIDOCAINE 2% INJ 20 MG/ML (2 ML VIAL) ONE (11:29)
[2021-12-10] MEDS ORDERED: GLYCOPYRROLATE 0.2 MG/ML 2 ML VIAL ONE (11:29)
[2021-12-10] MEDS ORDERED: PROPOFOL 10 MG/ML 20 ML VIAL IV ONE (11:29)
[2021-12-10] MEDS ORDERED: SUCCINYLCHOLINE CHLORIDE 200 MG/10 ML VIAL IV ONE (11:29)
[2021-12-10] MEDS ORDERED: MIDAZOLAM 2 MG/2 ML VIAL ONE (11:29)
[2021-12-10] MEDS ORDERED: fentaNYL (PF) 50 MCG/ML 2 ML AMP ONE (11:29)
[2021-12-10] MEDS ORDERED: PHENYLEPHRINE-0.9% NACL SYG 1,000 MCG/10 ML SYRINGE ONE (11:29)
[2021-12-10] MEDS ORDERED: ROCURONIUM 10 MG/ML (5 ML VIAL) IV ONE (11:29)
[2021-12-10] MEDS ORDERED: HYDROmorphone (PF) 1 MG/ML ONE (11:29)
[2021-12-10] MEDS: HYDROmorphone 0.5 MG/0.5 ML SYRINGE IVP PRN ×4 (14:25→14:53)
--- NOTE | 2021-12-10 14:55 | P.OP ---
Date of Procedure: 12/10/21 Procedure(s) Performed: PREOPERATIVE DIAGNOSIS: Diverticulitis POSTOPERATIVE DIAGNOSIS: Same PROCEDURE: Colostomy reversal, repair of parastomal hernia, incidental appendectomy SURGEON: Carmita EBL: 50 Steve ANESTHESIA: General COMPLICATIONS: None OPERATIVE PROCEDURE: Patient was placed on the operative table in the supine position. The patient was placed under general anesthesia. The patient was then placed in lithotomy. The stoma was closed using a pursestring 2-0 Vicryl stitch. The abdomen was prepped and draped in usual sterile fashion. An elliptical incision was made around the colostomy. Dissection through the subcutaneous fat took place using electrocautery. The patient had a moderate-sized parastomal hernia. Entrance into the peritoneal cavity took place through the hernia sac. The stoma was fully mobilized and reduced back into the peritoneal cavity. At that time a vertical incision was made using a scalpel through the previous midline incision. The patient had a few small fascial defects along the midline that were incorporated into our fascial opening. The Bookwalter retractor was utilized. The patient had adhesions in the abdominal cavity that were lysed using both sharp and blunt and electrocautery. The bowel was reduced back into the upper abdomen. The patient's appendix was quite long and extended all the way down where it was adherent fairly densely to the staple line of the stump. Blunt dissection was able to mobilize this. I decided to remove the appendix given the induration seen at the site of adhesions. The mesoappendix was divided using the LigaSure. The base of the appendix was then divided using the linear stapler. The anticipated site of resection of the sigmoid colon appeared to reach into the pelvis without tension. Attention was then directed to the rectal stump. An additional 3 cm of so of the distal sigmoid colon and proximal rectum was excised at that time using both the LigaSure and a contour stapler. At that time the colon proximal to the stoma was carefully dissected. A colotomy was created close to the stoma. A 25 EEA stapler was opened after we had confirmed that the 25 sizer fit nicely in the rectum all the way up to the staple line. The 25 Ethicon stapler anvil was advanced into the lumen of the colon proximally through the colotomy site. The colon was then divided approximately 6-7 cm proximal to the end of the stoma using a linear 75 stapler. The anvil was brought out adjacent to the staple line at that point and a 3-0 silk pursestring suture was utilized around the anvil. As I was inspecting the anticipated site of anastomosis there was noted to be a diverticulum close to where we divided the colon with the linear stapler. The anvil was then passed more proximal once again an additional 1.5-2 cm of colon was excised using again the linear stapler. The anvil was brought out adjacent to the staple line. There were no diverticulum present here. A 3-0 GI silk pursestring was placed at the exit site from the anvil. The stapler was then inserted into the anus and brought up to the staple line. The obturator was brought out anterior to the staple line. The 2 portions of the stapler were connected to one another and subsequently tightened and fired. The bowel was clamped proximal to the anastomosis. The rigid sigmoidoscope was utilized to fill the anastomotic site nicely with air. There was saline in the pelvis at this time. No evidence of leak was seen. There was no tension on the anastomotic site. There is no bleeding seen coming from the anastomotic site. The abdomen was irrigated with saline. The liver, stomach, visualized colon, and small bowel appeared normal. The hernia sac at the parastomal hernia was excised. The fascia at the stoma site was reapproximated using [id number] 0 Ethibond sutures in a oblique fashion. A drain was placed anterior to the fascial closure given the large volume of space there. This exited from the left lateral lower quadrant and was sutured to the skin using a 3-0 silk stitch. The subcutaneous tissues at the colostomy site were closed using interrupted 2-0 Vicryl sutures. The midline fascia was then reapproximated using 2 separate double-stranded #1 PDS sutures. The subcutaneous tissues were closed using 2-0 Vicryl sutures. The skin was then closed using sonny. Sterile dressings were then applied. DISPOSITION: Stable to recovery room
[2021-12-10] MEDS: MEPERIDINE 50 MG/ML SYRINGE IVP ONE ×3 (15:07→15:25)
[2021-12-10] MEDS: LACTATED RINGERS 1,000 ML IV SCH ×2 (15:49→15:53)
[2021-12-10] MEDS: ACETAMINOPHEN IV (For NPO) 1,000 MG in EMPTY BAG 1 BAG IVPB SCH ×2 (15:50→20:11)
[2021-12-10] MEDS: ONDANSETRON 4 MG/2 ML VIAL IVP PRN ×2 (16:49→22:10)
[2021-12-10] MEDS: HEPARIN SODIUM,PORCINE/PF 5,000 UNIT/0.5 ML SYRINGE SQ SCH ×2 (16:49→23:30)
[2021-12-10] MEDS: D5-0.45% NACL WITH KCL 20MEQ/L 1,000 ML IV SCH ×2 (16:50→22:08)
[2021-12-10] MEDS: HYDROmorphone 1 MG/ML 1 ML SYRINGE IVP PRN ×2 (20:12→23:30)
[2021-12-10] MEDS: FAMOTIDINE 20 MG/2 ML VIAL IV SCH (20:12)
[2021-12-10] MEDS: SIMETHICONE 40 MG/0.6 ML DROPS 2,000 MG/30 ML BOTTLE PO SCH (22:08)
[2021-12-11 00:48] LABS: Basophils % (A) 0 %; Eosinophils % (A) 0 %; HCT 42.5 % (39.0-53.0); HGB 13.9 gm/dL (13.0-17.5); Lymphocytes % (A) 7 %; MCH 32.2 pg (25.0-35.0); MCHC 32.8 g/dL (31.0-37.0); MCV 98.1 fL (80.0-100.0); Monocytes # (A) 0.7 k/uL (0-1.0); Monocytes % (A) 5 %; Neutrophils # (A) 11.6 k/uL (1.3-7.7); Neutrophils % (A) 86 %; Platelet Count 192 k/uL (150-450); RBC 4.33 m/uL (4.30-5.90); RDW 12.3 % (11.5-15.5); WBC 13.5 k/uL (3.8-10.6)
[2021-12-11] MEDS: HYDROmorphone 2 MG/ML 1 ML SYRINGE IVP PRN ×2 (02:40→07:41)
[2021-12-11] MEDS: ACETAMINOPHEN IV (For NPO) 1,000 MG in EMPTY BAG 1 BAG IVPB SCH ×4 (02:45→20:28)
[2021-12-11] MEDS: D5-0.45% NACL WITH KCL 20MEQ/L 1,000 ML IV SCH ×3 (07:42→22:07)
[2021-12-11] MEDS: HEPARIN SODIUM,PORCINE/PF 5,000 UNIT/0.5 ML SYRINGE SQ SCH ×3 (07:42→22:07)
[2021-12-11] MEDS: SIMETHICONE 40 MG/0.6 ML DROPS 2,000 MG/30 ML BOTTLE PO SCH ×4 (07:43→20:30)
[2021-12-11] MEDS: FAMOTIDINE 20 MG/2 ML VIAL IV SCH ×2 (07:43→20:29)
[2021-12-11] MEDS: ALVIMOPAN 12 MG CAPSULE PO SCH ×2 (07:43→20:29)
[2021-12-11] MEDS: ONDANSETRON 4 MG/2 ML VIAL IVP PRN (07:51)
--- NOTE | 2021-12-11 11:25 | P.PN ---
Subjective Progress Note Date: 12/11/21 Principal diagnosis: Diverticulitis with ostomy Patient doing better today. Pain was fairly bad last night with some abdominal wall spasms. Seems improved today. No bowel function. No nausea or vomiting. Vitals are stable. Objective - Vital Signs Vital signs: Vital Signs Temp 97.6 F 12/11/21 08:00 Pulse 93 12/11/21 08:00 Resp 15 12/11/21 08:00 BP 110/67 12/11/21 08:00 Pulse Ox 96 12/11/21 08:00 FiO2 Intake & Output 12/10/21 12/11/21 12/11/21 18:59 06:59 18:59 Intake Total 2930 Output Total 1250 800 Balance 1680 -800 Weight 79.5 kg Intake: IV 2450 Oral 480 Output: Urine 1200 800 Estimated Blood Loss 50 Other: Voiding Method Indwelling Catheter Indwelling Catheter Indwelling Catheter - Exam Abdomen: Soft, nondistended, mild tenderness, dressing clean and dry, ACE serosa nguineous - Labs CBC & Chem 7: 12/11/21 00:38 Labs: Abnormal Lab Results - Last 24 Hours (Table) 12/11/21 Range/Units 00:38 WBC 13.5 H (3.8-10.6) k/uL Neutrophils # 11.6 H (1.3-7.7) k/uL Assessment and Plan (1) Diverticulitis Narrative/Plan: Patient doing well at this time. Continue clear liquids. Gradually increase activity. Add Toradol for pain control. Current Visit: No Status: Acute Code(s): K57.92 - DVTRCLI OF INTEST, PART UNSP, W/O PERF OR ABSCESS W/O BLEED SNOMED Code(s): 248981480
[2021-12-11 11:34] LABS: Basophils # (A) 0.03 X 10*3/uL (0.00-0.10); Basophils % (A) 0.2 %; Eosinophils # (A) 0.02 X 10*3/uL (0.04-0.35); Eosinophils % (A) 0.1 %; HCT 40.3 % (39.6-50.0); HGB 13.5 g/dL (13.0-17.0); Immature Grans, Automated 0.4 %; Lymphocytes # (A) 1.84 X 10*3/uL (0.90-5.00); Lymphocytes % (A) 13.2 %; MCH 32.9 pg (27.0-32.0); MCHC 33.5 g/dL (32.0-37.0); MCV 98.3 fL (80.0-97.0); Mean Platelet Volume 10.9 fL (9.5-12.2); Monocytes # (A) 1.23 X 10*3/uL (0.20-1.00); Monocytes % (A) 8.8 %; NRBC Per 100 WBC 0 /100 WBCS (0.0-0.0); Neutrophils # (A) 10.79 X 10*3/uL (1.80-7.70); Neutrophils % (A) 77.3 %; Platelet Count 153 X 10*3/uL (140-440); RDW 12.6 % (11.5-14.5); WBC 13.96 X 10*3/uL (4.50-10.00)
[2021-12-11] MEDS: KETOROLAC 15 MG/ML 1 ML VIAL IVP SCH ×2 (11:46→17:50)
[2021-12-11 12:50] LABS: African American GFR (CKD) 102.5 (60.0-200.0); Anion Gap 12.3 mmol/L (10.00-18.00); BUN/Creat Ratio 8.26 Ratio (12.00-20.00); Blood Urea Nitrogen 6.9 mg/dL (9.0-27.0); Calcium 8.5 mg/dL (8.7-10.3); Carbon Dioxide 18.6 mmol/L (20.0-27.5); Non-African American GFR(CKD) 88.4 (60.0-200.0); Potassium 5.1 mmol/L (3.5-5.5)
--- NOTE | 2021-12-11 14:53 | P.CONS ---
History of Present Illness - History of Present Illness This is a pleasant 71 years old male with past medical history of GERD/Reflux, Hyperlipidemia, Osteoarthritis. Patient was diagnosed with perforated diverticulitis on 02/2021, he underwent colostomy procedure at that time, he was admitted this time for reversal of colostomy after Wilburn procedure done several months ago. He is complaining from abdominal pain this morning, he has critical surgical wound and left lower quadrant wound and both there are in a dressing, no tyler rounding cellulitis. Also patient has normal bowel movement which is expected His on liquid diet He has significant nausea and is getting medication for it. Review of Systems Review of systems CONSTITUTIONAL: No fever, no malaise, no fatigue. HEENT: No recent visual problems or hearing problems. Denied any sore throat. CARDIOVASCULAR: No orthopnea, PND, no palpitations, no syncope. PULMONARY: No shortness of breath, no cough, no hemoptysis. GASTROINTESTINAL: No diarrhea, no nausea,. Normoactive bowel sounds. NEUROLOGICAL: No headaches, no weakness, no numbness. HEMATOLOGICAL: Denies any bleeding or petechiae. GENITOURINARY: Denies any burning micturition, frequency, or urgency. MUSCULOSKELETAL/RHEUMATOLOGICAL: Denies any joint pain, swelling, or any muscle pain. ENDOCRINE: Denies any polyuria or polydipsia. Past Medical History Past Medical History: GERD/Reflux, Hyperlipidemia, Osteoarthritis (OA) Additional Past Medical History / Comment(s): diverticulitis w/perforation 2020 History of Any Multi-Drug Resistant Organisms: None Reported Past Surgical History: Bowel Resection, Tonsillectomy Additional Past Surgical History / Comment(s): sigmoid resection w/colostomy Past Anesthesia/Blood Transfusion Reactions: No Reported Reaction Past Psychological History: No Psychological Hx Reported Smoking Status: Former smoker Past Alcohol Use History: Daily Additional Past Alcohol Use History / Comment(s): quit smoking 2 yrs. ago, started age 16, smoked on & off 1ppd, couple vodka drinks daily Past Drug Use History: None Reported - Past Family History Father Additional Family Medical History / Comment(s): leaky heart vavle Mother Family Medical History: Cancer Additional Family Medical History / Comment(s): lung ca. never smoked Medications and Allergies Home Medications Medication Instructions Recorded Confirmed Type Atorvastatin [Lipitor] 10 mg PO HS 03/19/19 12/07/21 History Allergies Allergy/AdvReac Type Severity Reaction Status Date / Time No Known Allergies Allergy Verified 12/09/21 11:46 Physical Exam Vitals: Vital Signs Temp Pulse Resp BP Pulse Ox 12/11/21 08:00 97.6 F 93 15 110/67 96 12/11/21 02:00 98.2 F 96 17 111/69 100 12/10/21 20:00 97.3 F L 106 H 17 115/73 94 L 12/10/21 17:06 108 H 117/75 91 L 12/10/21 16:51 105 H 121/76 91 L 12/10/21 16:36 102 H 109/74 89 L 12/10/21 16:21 102 H 106/68 90 L 12/10/21 16:06 98.6 F 95 18 128/71 91 L 12/10/21 15:45 101 H 18 123/69 95 12/10/21 15:30 104 H 18 106/74 97 12/10/21 15:15 99 18 134/65 97 12/10/21 15:00 98 18 148/76 98 Intake and Output 12/10/21 12/11/21 12/11/21 22:59 06:59 14:59 Intake Total 1180 Output Total 700 800 Balance 480 -800 Intake: IV 700 Oral 480 Output: Urine 700 800 Other: Voiding Method Indwelling Catheter Indwelling Catheter Weight 79.5 kg GENERAL: The patient is alert and oriented x3, not in any acute distress. Well developed, well nourished. HEENT: Pupils are round and equally reacting to light. EOMI. No scleral icterus. No conjunctival pallor. Normocephalic, atraumatic. No pharyngeal erythema. No thyromegaly. CARDIOVASCULAR: S1 and S2 present. No murmurs, rubs, or gallops. PULMONARY: Chest is clear to auscultation, no wheezing or crackles. -ABDOMEN: Soft, tender at the surgical wound site [expected] , nondistended, normoactive bowel sounds. No palpable organomegaly. Midline vertical wound and left lower quadrant wound with dressing. Chest exam is deferred to surgery team MUSCULOSKELETAL: No joint swelling or deformity. EXTREMITIES: No cyanosis, clubbing, or pedal edema. NEUROLOGICAL: Gross neurological examination did not reveal any focal deficits. SKIN: No rashes. no petechiae. Results CBC & Chem 7: 12/11/21 06:55 12/11/21 06:55 Labs: Abnormal Lab Results - Last 24 Hours (Table) 12/11/21 12/11/21 12/11/21 Range/Units 00:38 06:55 06:55 WBC 13.5 H 13.96 H (3.8-10.6) k/uL RBC 4.10 L (4.40-5.60) X 10*6/uL MCV 98.3 H (80.0-97.0) fL MCH 32.9 H (27.0-32.0) pg Immature Gran # 0.05 H (0.00-0.04) X 10*3/uL Neutrophils # 11.6 H 10.79 H (1.3-7.7) k/uL Monocytes # 1.23 H (0.20-1.00) X 10*3/uL Eosinophils # 0.02 L (0.04-0.35) X 10*3/uL Carbon Dioxide 18.6 L (20.0-27.5) mmol/L BUN 6.9 L (9.0-27.0) mg/dL BUN/Creatinine Ratio 8.26 L (12.00-20.00) Ratio Glucose 135 H (70-110) mg/dL Calcium 8.5 L (8.7-10.3) mg/dL Assessment and Plan Assessment: History of perforated diverticulitis status post Harpal procedure status post reversal of colostomy during this admission Leukocytosis, mostly reactive, no signs of infection, no fever, no need for antibiotic, patient also has chronic leukocytosis History of GERD Hypertension Hyperlipidemia Plan: This is a pleasant 71 years old male who presents for reversal of colostomy Continue with pain management Continue with IV hydration, currently on D5 half-normal saline at 1 25 mL/h Monitor WBC or any signs of infection or fever Labs and medication were reviewed.. Continue same treatment. Continue with symptomatic treatment. Resume home medication. Monitor lytes and vitals. DVT and GI prophylaxis. Further recommendations as per clinical course of the p atient DVT prophylaxis: Subcutaneous heparin GI Prophylaxis: Pepcid Thank you for consulting us
[2021-12-11] MEDS: HYDROmorphone 1 MG/ML 1 ML SYRINGE IVP PRN (20:30)
[2021-12-12] MEDS: KETOROLAC 15 MG/ML 1 ML VIAL IVP SCH ×4 (00:12→17:54)
[2021-12-12] MEDS: MELATONIN 3 MG TABLET PO SCH ×2 (00:15→20:06)
[2021-12-12] MEDS: ACETAMINOPHEN IV (For NPO) 1,000 MG in EMPTY BAG 1 BAG IVPB SCH ×2 (03:13→07:58)
[2021-12-12] MEDS: HYDROmorphone 1 MG/ML 1 ML SYRINGE IVP PRN ×2 (03:14→20:14)
[2021-12-12] MEDS: ONDANSETRON 4 MG/2 ML VIAL IVP PRN (03:14)
[2021-12-12] MEDS: LACTATED RINGERS 1,000 ML IV SCH (06:04)
[2021-12-12] MEDS: FAMOTIDINE 20 MG/2 ML VIAL IV SCH ×2 (07:57→20:05)
[2021-12-12] MEDS: D5-0.45% NACL WITH KCL 20MEQ/L 1,000 ML IV SCH ×3 (07:57→20:14)
[2021-12-12] MEDS: HEPARIN SODIUM,PORCINE/PF 5,000 UNIT/0.5 ML SYRINGE SQ SCH ×2 (07:57→17:54)
[2021-12-12] MEDS: ALVIMOPAN 12 MG CAPSULE PO SCH ×2 (07:58→20:05)
[2021-12-12] MEDS: SIMETHICONE 40 MG/0.6 ML DROPS 2,000 MG/30 ML BOTTLE PO SCH ×4 (07:59→20:07)
--- NOTE | 2021-12-12 11:42 | P.PN ---
Subjective Progress Note Date: 12/12/21 Principal diagnosis: Diverticulitis with ostomy Patient doing well today. He is ambulating in the room. Pain is better controlled. No flatus or bowel movement. No nausea or vomiting. Objective - Vital Signs Vital signs: Vital Signs Temp 98.7 F 12/12/21 08:00 Pulse 72 12/12/21 08:00 Resp 16 12/12/21 08:00 BP 137/85 12/12/21 08:00 Pulse Ox 91 L 12/12/21 08:00 FiO2 Intake & Output 12/11/21 12/12/21 12/12/21 18:59 06:59 18:59 Output Total 700 Balance -700 Output: Urine 700 Other: Voiding Method Indwelling Catheter Indwelling Catheter Indwelling Catheter # Voids 1,100 - Exam Abdomen: Soft, nondistended, dressings clean and dry, ACE serosanguineous - Labs CBC & Chem 7: 12/11/21 06:55 12/11/21 06:55 Labs: Abnormal Lab Results - Last 24 Hours (Table) 12/11/21 Range/Units 06:55 Carbon Dioxide 18.6 L (20.0-27.5) mmol/L BUN 6.9 L (9.0-27.0) mg/dL BUN/Creatinine Ratio 8.26 L (12.00-20.00) Ratio Glucose 135 H (70-110) mg/dL Calcium 8.5 L (8.7-10.3) mg/dL Assessment and Plan (1) Diverticulitis Narrative/Plan: Patient doing well this morning. He is ambulating in the room. Will remove Barros catheter. Advance to full liquid diet. Recheck labs tomorrow. Current Visit: No Status: Acute Code(s): K57.92 - DVTRCLI OF INTEST, PART UNSP, W/O PERF OR ABSCESS W/O BLEED SNOMED Code(s): 067984150
[2021-12-12] MEDS ORDERED: TEMAZEPAM 7.5 MG CAP PO PRN (21:13)
--- NOTE | 2021-12-12 21:17 | P.PN ---
Subjective This is a pleasant 71 years old male with past medical history of GERD/Reflux, Hyperlipidemia, Osteoarthritis. Patient was diagnosed with perforated diverticulitis on 02/2021, he underwent colostomy procedure at that time, he was admitted this time for reversal of colostomy after Wilburn procedure done several months ago. He is complaining from abdominal pain this morning, he has critical surgical wound and left lower quadrant wound and both there are in a dressing, no surrounding cellulitis. Also patient has normal bowel movement which is expected His on liquid diet He has significant nausea and is getting medication for it. 12/12/2021 Patient looks similar to yesterday overall, he is a liquid diet on the morning tolerating that is acceptable. His abdomen is card tender however he feels better He cannot sleep He feels some stomach upset therefore going to change his Pepcid to Protonix. Vital signs stable. Objective - Vital Signs Vital signs: Vital Signs Temp 98.7 F 12/12/21 08:00 Pulse 72 12/12/21 08:00 Resp 16 12/12/21 08:00 BP 137/85 12/12/21 08:00 Pulse Ox 91 L 12/12/21 08:00 FiO2 Intake & Output 12/11/21 12/12/21 12/12/21 18:59 06:59 18:59 Output Total 700 Balance -700 Output: Urine 700 Other: Voiding Method Indwelling Catheter Indwelling Catheter Indwelling Catheter # Voids 1,100 - Exam GENERAL: The patient is alert and oriented x3, not in any acute distress. Well developed, well nourished. HEENT: Pupils are round and equally reacting to light. EOMI. No scleral icterus. No conjunctival pallor. Normocephalic, atraumatic. No pharyngeal erythema. No thyromegaly. CARDIOVASCULAR: S1 and S2 present. No murmurs, rubs, or gallops. PULMONARY: Chest is clear to auscultation, no wheezing or crackles. -ABDOMEN: Soft, tender at the surgical wound site [expected] , nondistended, normoactive bowel sounds. No palpable organomegaly. Midline vertical wound and left lower quadrant wound with dressing. Chest exam is deferred to surgery team MUSCULOSKELETAL: No joint swelling or deformity. EXTREMITIES: No cyanosis, clubbing, or pedal edema. NEUROLOGICAL: Gross neurological examination did not reveal any focal deficits. SKIN: No rashes. no petechiae. - Labs CBC & Chem 7: 12/11/21 06:55 12/11/21 06:55 Labs: Abnormal Lab Results - Last 24 Hours (Table) 12/11/21 12/11/21 Range/Units 06:55 06:55 WBC 13.96 H (4.50-10.00) X 10*3/uL RBC 4.10 L (4.40-5.60) X 10*6/uL MCV 98.3 H (80.0-97.0) fL MCH 32.9 H (27.0-32.0) pg Immature Gran # 0.05 H (0.00-0.04) X 10*3/uL Neutrophils # 10.79 H (1.80-7.70) X 10*3/uL Monocytes # 1.23 H (0.20-1.00) X 10*3/uL Eosinophils # 0.02 L (0.04-0.35) X 10*3/uL Carbon Dioxide 18.6 L (20.0-27.5) mmol/L BUN 6.9 L (9.0-27.0) mg/dL BUN/Creatinine Ratio 8.26 L (12.00-20.00) Ratio Glucose 135 H (70-110) mg/dL Calcium 8.5 L (8.7-10.3) mg/dL Assessment and Plan Assessment: History of perforated diverticulitis status post Harpal procedure status post reversal of colostomy during this admission Leukocytosis, mostly reactive, no signs of infection, no fever, no need for antibiotic, patient also has chronic leukocytosis History of GERD Hypertension Hyperlipidemia Plan: This is a pleasant 71 years old male who presents for reversal of colostomy Continue with pain management Continue with IV hydration, currently on D5 half-normal saline at 1 25 mL/h Monitor WBC or any signs of infection or fever Labs and medication were reviewed.. Continue same treatment. Continue with symptomatic treatment. Resume home medication. Monitor lytes and vitals. DVT and GI prophylaxis. Further recommendations as per clinical course of the patient DVT prophylaxis: Subcutaneous heparin GI Prophylaxis: Protonix Thank you for consulting us
[2021-12-13] MEDS: PANTOPRAZOLE 40 MG/10 ML VIAL IVP SCH ×2 (00:02→08:04)
[2021-12-13] MEDS: KETOROLAC 15 MG/ML 1 ML VIAL IVP SCH ×3 (00:03→05:45)
[2021-12-13] MEDS: HEPARIN SODIUM,PORCINE/PF 5,000 UNIT/0.5 ML SYRINGE SQ SCH ×4 (00:03→21:24)
[2021-12-13] MEDS: LACTATED RINGERS 1,000 ML IV SCH (02:04)
[2021-12-13] MEDS: ONDANSETRON 4 MG/2 ML VIAL IVP PRN (05:45)
[2021-12-13] MEDS: HYDROmorphone 1 MG/ML 1 ML SYRINGE IVP PRN (08:04)
[2021-12-13] MEDS: ALVIMOPAN 12 MG CAPSULE PO SCH ×2 (08:04→21:21)
[2021-12-13] MEDS ORDERED: HYDROcodone/APAP 5-325MG 1 EACH TAB PO PRN (10:01)
[2021-12-13] MEDS ORDERED: METOCLOPRAMIDE 5 MG/ML 2 ML VIAL IVP PRN (10:02)
--- NOTE | 2021-12-13 10:20 | P.PN ---
Subjective Progress Note Date: 12/13/21 CHIEF COMPLAINT: History of diverticulitis HISTORY OF PRESENT ILLNESS: Patient is postop day #3 status post colostomy reversal, repair of parastomal hernia and incidental appendectomy. Patient did have pain this morning and received Dilaudid. He started having nausea after the medication. Zofran has been given. He is having flatus. He has no bowel movement. He is afebrile. Labs from today are pending PHYSICAL EXAM: VITAL SIGNS: Reviewed. GENERAL: Well-developed in no acute distress. HEENT: No sclera icterus. Extraocular movements grossly intact. Moist buccal mucosa. Head is atraumatic, normocephalic. ABDOMEN: Soft. Nondistended. Minimal tenderness at incision site. Incision has some dried blood noted. ACE drain with serosanguineous output NEUROLOGIC: Alert and oriented. Cranial nerves II through XII grossly intact. ASSESSMENT: 1. History of diverticulitis status post colostomy reversal, repair of parastomal hernia and incidental appendectomy PLAN: -Add [place] for po pain control -Add Reglan for nausea -Continue full liquid diet for now -Continue IV fluids at 75ml/hr -Encourage patient to ambulate -Nursing staff to clean and change abdominal dressing -Encourage patient to use incentive spirometer -GI prophylaxis Protonix and DVT prophylaxis subcu heparin Physician Clinical Assistant Professor note has been reviewed by physician. Signing provider agrees with the documented findings, assessment, and plan of care. I have personally seen and examined the patient, reviewed the KETTLE ROOM HELPER /PAs history, exam and MDM and agree with the assessment and plan as written. Based on total visit time, I have performed more than 50% of the visit. As above: Patient says he is having some lower abdominal pain today. Slightly increased from yesterday. He is afebrile. White blood cell count is normal. He is passing flatus. Continue full liquids for now. Ambulate. Objective - Vital Signs Vital signs: Vital Signs Temp 98.5 F 12/13/21 08:00 Pulse 89 12/13/21 08:00 Resp 16 12/13/21 08:00 BP 140/80 12/13/21 08:00 Pulse Ox 90 L 12/13/21 08:00 FiO2 Intake & Output 12/12/21 12/13/21 12/13/21 18:59 06:59 18:59 Output Total 265 Balance -265 Output: Gastric Drainage 15 Urine 250 Other: Voiding Method Indwelling Catheter Toilet Urinal # Voids 2 - Labs CBC & Chem 7: 12/13/21 06:48 12/13/21 06:48
[2021-12-13 10:37] LABS: Basophils # (A) 0.06 X 10*3/uL (0.00-0.10); Basophils % (A) 0.7 %; Eosinophils # (A) 0.23 X 10*3/uL (0.04-0.35); Eosinophils % (A) 2.7 %; HCT 38.1 % (39.6-50.0); Immature Grans, Automated 0.2 %; Lymphocytes # (A) 1.17 X 10*3/uL (0.90-5.00); Lymphocytes % (A) 13.7 %; MCH 32.7 pg (27.0-32.0); MCHC 34.1 g/dL (32.0-37.0); Mean Platelet Volume 11.1 fL (9.5-12.2); Monocytes # (A) 0.65 X 10*3/uL (0.20-1.00); Monocytes % (A) 7.6 %; NRBC Per 100 WBC 0 /100 WBCS (0.0-0.0); Neutrophils # (A) 6.39 X 10*3/uL (1.80-7.70); Neutrophils % (A) 75.1 %; Platelet Count 169 X 10*3/uL (140-440); RBC 3.97 X 10*6/uL (4.40-5.60); RDW 12.4 % (11.5-14.5); WBC 8.52 X 10*3/uL (4.50-10.00)
[2021-12-13 11:26] LABS: African American GFR (CKD) 110.3 (60.0-200.0); Anion Gap 10.8 mmol/L (10.00-18.00); BUN/Creat Ratio 10.3 Ratio (12.00-20.00); Blood Urea Nitrogen 7.2 mg/dL (9.0-27.0); Calcium 8.6 mg/dL (8.7-10.3); Carbon Dioxide 19.5 mmol/L (20.0-27.5); Non-African American GFR(CKD) 95.2 (60.0-200.0); Potassium 4.4 mmol/L (3.5-5.5)
[2021-12-13] MEDS: SIMETHICONE 40 MG/0.6 ML DROPS 2,000 MG/30 ML BOTTLE PO SCH ×4 (11:38→21:24)
[2021-12-13] MEDS ORDERED: ACETAMINOPHEN TAB 325 MG TAB PO PRN (13:02)
--- NOTE | 2021-12-13 13:04 | P.PN ---
Subjective Progress Note Date: 12/13/21 This is a pleasant 71-year-old male admitted with history of perforated diverticulitis status post Wilburn's procedure, presented this admission for reversal of colostomy. Tolerated procedure well. Maintained on Dilaudid for pain control, currently controlled. Maintained on full liquid diet with complai nts of nausea earlier this morning, resolved with Zofran. Passing flatus, no bm. Labs pending. Continues on IV fluid hydration .Afebrile Objective - Vital Signs Vital signs: Vital Signs Temp 98.5 F 12/13/21 08:00 Pulse 89 12/13/21 08:00 Resp 16 12/13/21 08:00 BP 140/80 12/13/21 08:00 Pulse Ox 90 L 12/13/21 08:00 FiO2 Intake & Output 12/12/21 12/13/21 12/13/21 18:59 06:59 18:59 Output Total 265 Balance -265 Output: Gastric Drainage 15 Urine 250 Other: Voiding Method Indwelling Catheter Toilet Urinal # Voids 2 - Exam GENERAL: The patient is alert and oriented x3, not in any acute distress. Well developed, well nourished. HEENT: Pupils are round and equally reacting to light. EOMI. No scleral icterus. No conjunctival pallor. Normocephalic, atraumatic. No pharyngeal erythema. No thyromegaly. CARDIOVASCULAR: S1 and S2 present. No murmurs, rubs, or gallops. PULMONARY: Chest is clear to auscultation, no wheezing or crackles. ABDOMEN: Soft, status post surgery, tender at the surgical wound site , nondistended, normoactive bowel sounds. No palpable organomegaly. Midline vertical wound and left lower quadrant wound. ACE with serosanguineous drainage. EXTREMITIES: No cyanosis, clubbing, or pedal edema. NEUROLOGICAL: Gross neurological examination did not reveal any focal deficits. SKIN: Warm and dry, No rashes. - Labs CBC & Chem 7: 12/13/21 06:48 12/13/21 06:48 Labs: Abnormal Lab Results - Last 24 Hours (Table) 12/13/21 12/13/21 Range/Units 06:48 06:48 RBC 3.97 L (4.40-5.60) X 10*6/uL Hct 38.1 L (39.6-50.0) % MCH 32.7 H (27.0-32.0) pg Chloride 111 H (96-109) mmol/L Carbon Dioxide 19.5 L (20.0-27.5) mmol/L BUN 7.2 L (9.0-27.0) mg/dL BUN/Creatinine Ratio 10.30 L (12.00-20.00) Ratio Glucose 118 H (70-110) mg/dL Calcium 8.6 L (8.7-10.3) mg/dL Assessment and Plan Assessment: History of perforated diverticulitis status post Harpal procedure status post reversal of colostomy during this admission, repair of Paristomal hernia and incidental appendectomy History of GERD Hypertension Hyperlipidemia Plan: Continue on current medication regime ,monitoring and symptomatic treatment. Aggressive pulmonary toileting with incentive spirometer reinforced. Gentle IV hydration. Pain management as per surgery. DVT prophylaxis with heparin subcu in place. Increase ambulation as tolerated. The impression and plan of care has been dictated as directed. : I performed a history and examination of this patient, discussed the same with the dictator. I agree with the dictator's note ,documented as a scribe. Any additional findings or plans will be noted.
[2021-12-13] MEDS: D5-0.45% NACL WITH KCL 20MEQ/L 1,000 ML IV SCH ×2 (18:53→21:19)
[2021-12-13] MEDS: MELATONIN 3 MG TABLET PO SCH (21:22)
[2021-12-14] MEDS: LACTATED RINGERS 1,000 ML IV SCH (03:37)
[2021-12-14] MEDS: ALVIMOPAN 12 MG CAPSULE PO SCH ×2 (08:00→21:25)
[2021-12-14] MEDS: HEPARIN SODIUM,PORCINE/PF 5,000 UNIT/0.5 ML SYRINGE SQ SCH ×3 (08:01→22:35)
[2021-12-14] MEDS: PANTOPRAZOLE 40 MG/10 ML VIAL IVP SCH (08:01)
[2021-12-14] MEDS: SIMETHICONE 40 MG/0.6 ML DROPS 2,000 MG/30 ML BOTTLE PO SCH ×5 (08:01→21:25)
[2021-12-14] MEDS: D5-0.45% NACL WITH KCL 20MEQ/L 1,000 ML IV SCH (08:02)
[2021-12-14] MEDS: KETOROLAC 15 MG/ML 1 ML VIAL IVP SCH ×3 (10:44→21:55)
[2021-12-14] MEDS: ACETAMINOPHEN TAB 500 MG TAB PO SCH ×3 (10:44→22:35)
--- NOTE | 2021-12-14 12:54 | P.PN ---
Subjective Progress Note Date: 12/14/21 CHIEF COMPLAINT: History of diverticulitis HISTORY OF PRESENT ILLNESS: Patient is postop day #4 status post colostomy reversal, repair of parastomal hernia and incidental appendectomy. Patient did have a soft bowel movement. He denies any blood in the stool. He is complaining of abdominal pain today. He states that he is not taking any narcotics. And his last, all was yesterday afternoon. He did have some nausea and Reglan was given this morning. No vomiting. Afebrile. White count yesterday normalized at 8.5 to hemoglobin 13. PHYSICAL EXAM: VITAL SIGNS: Reviewed. GENERAL: Well-developed in no acute distress. HEENT: No sclera icterus. Extraocular movements grossly intact. Moist buccal mucosa. Head is atraumatic, normocephalic. ABDOMEN: Soft. Nondistended. Minimal tenderness at incision site. Incision site clean dry and intact. ACE drain with serosanguineous output NEUROLOGIC: Alert and oriented. Cranial nerves II through XII grossly intact. ASSESSMENT: 1. History of diverticulitis status post colostomy reversal, repair of parastomal hernia and incidental appendectomy PLAN: -Start oral Tylenol and IV Toradol scheduled to help with pain control -Use ice as needed for pain -Continue full liquid diet -Discontinue IV fluids -Encourage patient to ambulate -Encourage patient to use incentive spirometer -GI prophylaxis Protonix and DVT prophylaxis subcu heparin Physician Gis Analyst note has been reviewed by physician. Signing provider agrees with the documented findings, assessment, and plan of care. I have personally seen and examined the patient, reviewed the RESIZER OPERATOR /PAs history, exam and MDM and agree with the assessment and plan as written. Based on total visit time, I have performed more than 50% of the visit. As above: Patient had a bowel movement earlier today. He is having some nausea however is requesting solid foods. Abdominal exam shows minimal tenderness. Incisions are clean and dry. Begin low fiber diet tomorrow for breakfast. Objective - Vital Signs Vital signs: Vital Signs Temp 97.9 F 12/14/21 08:00 Pulse 81 12/14/21 08:00 Resp 14 12/14/21 08:00 BP 156/97 12/14/21 08:00 Pulse Ox 91 L 12/14/21 08:00 FiO2 Intake & Output 12/13/21 12/14/2122 18:59 06:59 18:59 Output Total 250 Balance -250 Output: Urine 250 Other: Voiding Method Toilet # Voids 400 - Labs CBC & Chem 7: 12/13/21 06:48 12/13/21 06:48
--- NOTE | 2021-12-14 14:45 | P.PN ---
Subjective Progress Note Date: 12/14/21 This is a pleasant 71-year-old male admitted with history of perforated diverticulitis status post Wilburn's procedure, presented this admission for reversal of colostomy. Tolerated procedure well. Maintained on Dilaudid for pain control, currently controlled. Maintained on full liquid diet with complai nts of nausea earlier this morning, resolved with Zofran. Passing flatus, no bm. Labs pending. Continues on IV fluid hydration .Afebrile 12/14/2021 were positive bowel movement this morning but states watery, nonbloody, non-painful. Diet Intake 25%, Reporting mild nausea, no emesis. Afebrile, normal WBC, hemoglobin 13. Minimal ambulation. He reports surgical pain, yet declining pain management regimen. Objective - Vital Signs Vital signs: Vital Signs Temp 97.9 F 12/14/21 08:00 Pulse 81 12/14/21 08:00 Resp 14 12/14/21 08:00 BP 156/97 12/14/21 08:00 Pulse Ox 91 L 12/14/21 08:00 FiO2 Intake & Output 12/13/21 12/14/21 12/14/21 18:59 06:59 18:59 Output Total 250 Balance -250 Output: Urine 250 Other: Voiding Method Toilet # Voids 400 - Exam GENERAL: Sitting up in bed, alert and oriented x3, not in any acute distress. HEENT: Pupils are round and equally reacting to light. EOMI. No scleral icterus. No conjunctival pallor. Normocephalic, atraumatic. Supple, no JVD CARDIOVASCULAR: S1 and S2 present. No murmurs, rubs, or gallops. PULMONARY: Chest is clear to auscultation, no wheezing or crackles. ABDOMEN: Soft, status post surgery, tender at the surgical wound site , nondistended, normoactive bowel sounds. ACE with serosanguineous drainage. EXTREMITIES: No cyanosis, clubbing, or pedal edema. NEUROLOGICAL: Gross neurological examination did not reveal any focal deficits. SKIN: Warm and dry, No rashes. - Labs CBC & Chem 7: 12/13/21 06:48 12/13/21 06:48 Assessment and Plan Assessment: History of perforated diverticulitis status post Harpal procedure status post reversal of colostomy during this admission, repair of Paristomal hernia and incidental appendectomy History of GERD Hypertension Hyperlipidemia Plan: Continue on current medication regime ,monitoring and symptomatic roxanna tment. Abdominal binder for additional support. Increase ambulation as tolerated. PT/OT consulted. Continue with aggressive pulmonary toileting with incentive spirometer reinforced. The impression and plan of care has been dictated as directed. : I performed a history and examination of this patient, discussed the same with the dictator. I agree with the dictator's note ,documented as a scribe. Any additional findings or plans will be noted.
[2021-12-14] MEDS: MELATONIN 3 MG TABLET PO SCH (21:24)
[2021-12-15] MEDS: ACETAMINOPHEN TAB 500 MG TAB PO SCH ×4 (00:33→21:14)
[2021-12-15] MEDS: LACTATED RINGERS 1,000 ML IV SCH (06:30)
[2021-12-15] MEDS: ALVIMOPAN 12 MG CAPSULE PO SCH (07:14)
[2021-12-15] MEDS: SIMETHICONE 40 MG/0.6 ML DROPS 2,000 MG/30 ML BOTTLE PO SCH ×4 (07:15→21:20)
[2021-12-15] MEDS: PANTOPRAZOLE 40 MG/10 ML VIAL IVP SCH (07:34)
[2021-12-15] MEDS: HEPARIN SODIUM,PORCINE/PF 5,000 UNIT/0.5 ML SYRINGE SQ SCH ×3 (07:34→21:15)
[2021-12-15] MEDS: KETOROLAC 15 MG/ML 1 ML VIAL IVP SCH ×3 (09:18→21:14)
--- NOTE | 2021-12-15 09:42 | P.PN ---
Subjective Progress Note Date: 12/15/21 CHIEF COMPLAINT: History of diverticulitis HISTORY OF PRESENT ILLNESS: Patient is postop day #5 status post colostomy reversal, repair of parastomal hernia and incidental appendectomy. patient is complaining of abdominal tightness. He reports that he did not receive his pain medication during the night. He is scheduled for his Tylenol and Toradol this morning. He did have a small bowel movement this morning. No blood reported. He denies any nausea or vomiting. He did tolerate a low fiber diet. Patient did ambulate in the hallway yesterday 2. Afebrile. No new labs. ACE drain with a 20 mL serosanguineous output through the night. PHYSICAL EXAM: VITAL SIGNS: Reviewed. GENERAL: Well-developed in no acute distress. HEENT: No sclera icterus. Extraocular movements grossly intact. Moist buccal mucosa. Head is atraumatic, normocephalic. ABDOMEN: Soft. Nondistended. Minimal tenderness at incision site. Incision site with some dried blood noted otherwise clean dry and intact. ACE drain with serosanguineous output NEUROLOGIC: Alert and oriented. Cranial nerves II through XII grossly intact. ASSESSMENT: 1. History of diverticulitis status post colostomy reversal, repair of pa rastomal hernia and incidental appendectomy PLAN: -Continue low fiber diet -Continue the oral Tylenol and IV Toradol scheduled for pain control -Encourage patient to ambulate -Encourage patient to use incentive spirometer -GI prophylaxis Protonix and DVT prophylaxis subcu heparin Physician Animal Control Supervisor note has been reviewed by physician. Signing provider agrees with the documented findings, assessment, and plan of care. Objective - Vital Signs Vital signs: Vital Signs Temp 98.2 F 12/15/21 08:00 Pulse 60 12/15/21 08:00 Resp 13 12/15/21 08:00 BP 145/79 12/15/21 08:00 Pulse Ox 96 12/15/21 02:02 FiO2 Intake & Output 12/14/21 12/15/21 12/15/21 18:59 06:59 18:59 Intake Total 900 Output Total 520 275 Balance 380 -275 Intake: Intake, IV Titration 900 Amount D5-0.45% NaCl with KCl 900 20Meq/l 1,000 ml @ 75 mls /hr IV .[id number] [facility] Rx#: [id number] Output: Drainage 20 Abdomen 20 Urine 500 275 Other: Voiding Method Toilet # Bowel Movements 2 - Labs CBC & Chem 7: 12/13/21 06:48 12/13/21 06:48
--- NOTE | 2021-12-15 18:12 | P.PN ---
Subjective Progress Note Date: 12/15/21 This is a pleasant 71-year-old male admitted with history of perforated diverticulitis status post Wilburn's procedure, presented this admission for reversal of colostomy. Tolerated procedure well. Maintained on Dilaudid for pain control, currently controlled. Maintained on full liquid diet with complai nts of nausea earlier this morning, resolved with Zofran. Passing flatus, no bm. Labs pending. Continues on IV fluid hydration .Afebrile 12/14/2021 were positive bowel movement this morning but states watery, nonbloody, non-painful. Diet Intake 25%, Reporting mild nausea, no emesis. Afebrile, normal WBC, hemoglobin 13. Minimal ambulation. He reports surgical pain, yet declining pain management regimen. 12/15/2021 tolerating advancement in diet to low fiber with no nausea vomiting or diarrhea. Positive bowel movement today, nonbloody. Passing flatus. Complains of abdominal tightness and that he did not receive pain medication throughout the night. He ambulated in the hallway yesterday, tolerated exertion well. Afebrile. Objective - Vital Signs Vital signs: Vital Signs Temp 98.2 F 12/15/21 08:00 Pulse 60 12/15/21 08:00 Resp 13 12/15/21 08:00 BP 145/79 12/15/21 08:00 Pulse Ox 96 12/15/21 02:02 FiO2 Intake & Output 12/14/21 12/15/21 12/15/21 18:59 06:59 18:59 Intake Total 900 Output Total 520 275 Balance 380 -275 Intake: Intake, IV Titration 900 Amount D5-0.45% NaCl with KCl 900 20Meq/l 1,000 ml @ 75 mls /hr IV .[id number] [facility] Rx#: [id number] Output: Drainage 20 Abdomen 20 Urine 500 275 Other: Voiding Method Toilet # Bowel Movements 2 - Exam GENERAL: Sitting up in bed, alert and oriented x3, no acute distress. HEENT: Pupils are round and equally reacting to light. EOMI. No scleral icterus. No conjunctival pallor. Normocephalic, atraumatic. Supple, no JVD CARDIOVASCULAR: S1 and S2 present. No murmurs, rubs, or gallops. PULMONARY: Chest is clear to auscultation, no wheezing or crackles. ABDOMEN: Soft, status post surgery, nondistended, normoactive bowel sounds. ACE with minimal serosanguineous drainage. EXTREMITIES: No cyanosis, clubbing, or pedal edema. NEUROLOGICAL: Gross neurological examination did not reveal any focal deficits. SKIN: Warm and dry, No rashes. - Labs CBC & Chem 7: 12/13/21 06:48 12/13/21 06:48 Assessment and Plan Assessment: History of perforated diverticulitis status post Harpal procedure status post reversal of colostomy during this admission, repair of Paristomal hernia and in cidental appendectomy History of GERD Hypertension Hyperlipidemia Plan: Continue on current medication regime ,monitoring and symptomatic treatment. Increase ambulation as tolerated. PT/OT-patient concerned about doing stairs. Pain management. Continue with aggressive pulmonary toileting with incentive spirometer reinforced. Discharge planning as per primary. Follow-up with PCP in one week. The impression and plan of care has been dictated as directed. : I performed a history and examination of this patient, discussed the same with the dictator. I agree with the dictator's note ,documented as a scribe. Any additional findings or plans will be noted.
[2021-12-15] MEDS: MELATONIN 3 MG TABLET PO SCH (21:14)
[2021-12-16] MEDS: KETOROLAC 15 MG/ML 1 ML VIAL IVP SCH ×2 (04:29→10:14)
[2021-12-16] MEDS: ACETAMINOPHEN TAB 500 MG TAB PO SCH ×2 (04:30→10:14)
[2021-12-16 08:28] VITALS: BP 133/80; PULSE 78; RESP 17; TEMP 98
[2021-12-16] MEDS: LACTATED RINGERS 1,000 ML IV SCH (08:43)
[2021-12-16] MEDS: PANTOPRAZOLE 40 MG/10 ML VIAL IVP SCH (10:13)
[2021-12-16] MEDS: HEPARIN SODIUM,PORCINE/PF 5,000 UNIT/0.5 ML SYRINGE SQ SCH (10:14)
--- NOTE | 2021-12-16 11:11 | P.DS ---
Providers Date of admission: 12/10/21 09:13 Expected date of discharge: 12/16/21 Attending physician: Claus Vizcarra Consults: 12/10/21 14:49 Consult Physician Routine Consulting Provider: Pritesh Walls Consult Reason/Comments: Medical management Do you want consulting provider notified?: Yes Primary care physician: Pritesh Walls MD Hospital Course: Discharge diagnosis 1. History of diverticulitis status post colostomy reversal, repair of parastomal hernia and incidental appendectomy Hospital course This is a 71-year-old male with a known history of perforated sigmoid diverticulitis who underwent Wilburn's procedure last February. Patient is status post colostomy reversal, repair of parastomal hernia and incidental appendectomy. Patient is tolerated surgery well. He is tolerating diet. He is pain is controlled. He is having bowel movements. He is afebrile. He has been up and ambulating. His incision site is clean dry and intact. He is stable for discharge. Please refer to chart for any further details. Physician Infertility Nurse note has been reviewed by physician. Signing provider agrees with the documented findings, assessment, and plan of care. Patient Condition at Discharge: Stable Plan - Discharge Summary Discharge Rx Participant: No New Discharge Prescriptions: New Acetaminophen Tab [Tylenol] 1,000 mg PO Q6HR PRN #30 tablet PRN Reason: Pain Continue Atorvastatin [Lipitor] 10 mg PO HS Discharge Medication List Atorvastatin [Lipitor] 10 mg PO HS 03/19/19 [History] Acetaminophen Tab [Tylenol] 1,000 mg PO Q6HR PRN #30 tablet 12/16/21 [Rx] Follow up Appointment(s)/Referral(s): Claus Vizcarra MD [Medical Doctor] - 12/23/21 10:30 am Pritesh Walls MD [Primary Care Provider] - 12/24/21 11:15 am [facility] Visiting Nurse, [NON-STAFF] - As Needed Patient Instructions/Handouts: Open Colostomy Reversal (DC) Activity/Diet/Wound Care/Special Instructions: No lifting over 10 pounds Shower daily. No soaking or tub baths for 2 weeks Very light activity until you are reevaluated at your follow up appointment with your surgeon Discharge Disposition: HOME SELF-CARE
--- NOTE | 2021-12-16 17:21 | P.PN ---
Subjective Progress Note Date: 12/16/21 This is a pleasant 71-year-old male admitted with history of perforated diverticulitis status post Wilburn's procedure, presented this admission for reversal of colostomy. Tolerated procedure well. Maintained on Dilaudid for pain control, currently controlled. Maintained on full liquid diet with complai nts of nausea earlier this morning, resolved with Zofran. Passing flatus, no bm. Labs pending. Continues on IV fluid hydration .Afebrile 12/14/2021 were positive bowel movement this morning but states watery, nonbloody, non-painful. Diet Intake 25%, Reporting mild nausea, no emesis. Afebrile, normal WBC, hemoglobin 13. Minimal ambulation. He reports surgical pain, yet declining pain management regimen. 12/15/2021 tolerating advancement in diet to low fiber with no nausea vomiting or diarrhea. Positive bowel movement today, nonbloody. Passing flatus. Complains of abdominal tightness and that he did not receive pain medication throughout the night. He ambulated in the hallway yesterday, tolerated exertion well. Afebrile. 12/16/2009 significant clinical improvement. Pain controlled, tolerating diet advancement to low fiber. Nonbloody in bowel movement this morning. Denies chest pain, palpitations or shortness of breath. Vital signs stable. Afebrile, normal WBC. Ambulating in hallway yesterday, tolerating exertion well. Denies lightheadedness, dizziness or focal deficits. Objective - Vital Signs Vital signs: Vital Signs Temp 98.0 F 12/16/21 08:00 Pulse 78 12/16/21 08:00 Resp 17 12/16/21 08:00 BP 133/80 12/16/21 08:00 Pulse Ox 92 L 12/16/21 08:00 FiO2 Intake & Output 12/15/21 12/16/21 12/16/21 18:59 06:59 18:59 Intake Total 240 Output Total 20 20 Balance -20 220 Intake: Oral 240 Output: Drainage 20 20 Abdomen 20 20 Other: # Voids 3 1 # Bowel Movements 1 - Exam GENERAL: Sitting up in bed, alert and oriented x3, sitting up in chair, dressed in his civilian clothes ,no acute distress. HEENT: Pupils are round and equally reacting to light. EOMI. No scleral icterus. No conjunctival pallor. Normocephalic, atraumatic. Supple, no JVD CARDIOVASCULAR: S1 and S2 present. No murmurs, rubs, or gallops. PULMONARY: Chest is clear to auscultation, no wheezing or crackles. ABDOMEN: Soft, status post surgery, nondistended, normoactive bowel sounds. ACE with minimal serosanguineous drainage. EXTREMITIES: No cyanosis, clubbing, or pedal edema. NEUROLOGICAL: Gross neurological examination did not reveal any focal deficits. SKIN: Warm and dry, No rashes. - Labs CBC & Chem 7: 12/13/21 06:48 12/13/21 06:48 Assessment and Plan Assessment: History of perforated diverticulitis status post Harpal procedure status post reversal of colostomy during this admission, repair of Paristomal hernia and incidental appendectomy History of GERD Hypertension Hyperlipidemia Plan: Continue on current medication regime ,monitoring and symptomatic treatment. Discharge planning in progress for today as per primary. Pain management. Maintain aggressive pulmonary toileting with incentive spirometer reinforced. Follow-up with PCP in one week. The impression and plan of care has been dictated as directed. : I performed a history and examination of this patient, discussed the same with the dictator. I agree with the dictator's note ,documented as a scribe. Any additional findings or plans will be noted.
== END 2021-12-16 13:26 | disposition home or self-care (01) | DRG 330 ==
LOC: 2ORMAIN 09:13 → 4SSUR 15:24
PROVIDERS: ADMIT Surgery; ATTEND Surgery
PROC: 0WQF0ZZ Repair Abdominal Wall, Open Approach (ICD-10-PCS; 2021-12-10)
PROC: 0DTJ0ZZ Resection of Appendix, Open Approach (ICD-10-PCS; 2021-12-10)
PROC: 0DQN0ZZ Repair Sigmoid Colon, Open Approach (ICD-10-PCS; principal; 2021-12-10 11:15)
DX: Z43.3 Encounter for attention to colostomy (principal); K57.32 Diverticulitis of large intestine without perforation or abscess without bleeding; K43.5 Parastomal hernia without obstruction or gangrene; D72.829 Elevated white blood cell count, unspecified; K21.9 Gastro-esophageal reflux disease without esophagitis; E78.5 Hyperlipidemia, unspecified; I10 Essential (primary) hypertension; M62.838 Other muscle spasm; M19.90 Unspecified osteoarthritis, unspecified site; Z79.891 Long term (current) use of opiate analgesic; Z79.899 Other long term (current) drug therapy; Z87.891 Personal history of nicotine dependence; Z86.010 Personal history of colon polyps
CPT/HCPCS: 80048; 85025; 86850; 86900; 86901; 88302; 88304; 94760

== ENCOUNTER 2021-12-28 15:49 | Emergency (ER) | payer MEDICARE ==
[2021-12-28 16:43] VITALS: BP 129/81; PULSE 86; RESP 16; TEMP 98.1
[2021-12-28 17:07] LABS: Basophils # (A) 0.1 k/uL (0-0.2); Basophils % (A) 1 %; Eosinophils # (A) 0.5 k/uL (0-0.7); Eosinophils % (A) 7 %; HGB 14.7 gm/dL (13.0-17.5); Lymphocytes # (A) 2.2 k/uL (1.0-4.8); Lymphocytes % (A) 28 %; MCH 32.6 pg (25.0-35.0); MCHC 34.1 g/dL (31.0-37.0); MCV 95.8 fL (80.0-100.0); Mean Platelet Volume 8.3; Monocytes # (A) 0.4 k/uL (0-1.0); Monocytes % (A) 5 %; Neutrophils # (A) 4.7 k/uL (1.3-7.7); Neutrophils % (A) 58 %; Platelet Count 279 k/uL (150-450); RBC 4.49 m/uL (4.30-5.90); RDW 12.1 % (11.5-15.5)
[2021-12-28 17:19] LABS: ALT 30 U/L (4-49); AST 28 U/L (17-59); African American GFR (CKD) >90 (>60 ml/min/1.73 sqM); Albumin 4.2 g/dL (3.5-5.0); Alkaline Phosphatase 64 U/L (38-126); Anion Gap 11 mmol/L; Blood Urea Nitrogen 14 mg/dL (9-20); Calcium 9.7 mg/dL (8.4-10.2); Carbon Dioxide 22 mmol/L (22-30); Chloride 107 mmol/L (98-107); Glucose 96 mg/dL (74-99); Non-African American GFR(CKD) >90 (>60 ml/min/1.73 sqM); Potassium 4.2 mmol/L (3.5-5.1); Sodium 140 mmol/L (137-145); Total Bilirubin 0.4 mg/dL (0.2-1.3)
--- NOTE | 2021-12-28 17:19 | XR ---
EXAMINATION TYPE: XR KUB DATE OF EXAM: 12/28/2021 COMPARISON: 02/24/2021 HISTORY: Abdominal pain TECHNIQUE: 2 views upright FINDINGS: There is no sign of intestinal obstruction or pneumoperitoneum. Fecal pattern is normal. No evidence of a mass. There is lumbar levoscoliotic deformity. Lung bases appear clear. IMPRESSION: Nonacute abdomen. There is clearing of the lower lobe pulmonary airspace infiltrates compared to old exam.
[2021-12-28] MEDS ORDERED: SODIUM CHLORIDE 0.9% 1,000 ML IV STA (18:30)
[2021-12-28] MEDS ORDERED: MORPHINE SULFATE 4 MG/ML SYRINGE IVP STA ×2 (18:30→20:20)
--- NOTE | 2021-12-28 18:30 | ED ---
General Adult HPI - General Chief complaint: Abdominal Pain Stated complaint: post op Time Seen by Provider: 12/28/21 18:18 Source: patient, family, RN notes reviewed, old records reviewed Mode of arrival: ambulatory Limitations: no limitations - History of Present Illness Initial comments: Patient is a 71-year-old male who presents emergency Department complaining of abdominal pain. In February, patient had a diverticulitis with abscess that was surgically intervened on and colostomy was placed. In the colostomy reversed approximately [address] Ruff who did the original surgery. Followed up with his surgeon last week, and some of the sonny removed. Was instructed to come to the emergency department if he has any severe pain in his abdomen. He states that he has had some pain since the reversal 3 weeks ago, however it did get worse last night and today. Describes it as a sharp pain located near the incision site. Denies any discharge. Denies any nausea or vomiting. Denies any urinary complaints. Is having normal soft bowel movements are brown. Nonbloody. No change in bowel movement since the reversal. No other acute complaints at this time. Was instructed to come to the emergency department for further evaluation as well as a computed tomography scan by surgeon if this happens. Denies any fevers, chills, cough. Has no chest pain or shortness of breath. No upper abdominal pain. Pain is all located in the inferior suprapubic quadrant near the right side of the incision. Presents for further evaluation at this time. - Related Data Home Medications Medication Instructions Recorded Confirmed Atorvastatin [Lipitor] 10 mg PO HS 03/19/19 12/07/21 Previous Rx's Medication Instructions Recorded Acetaminophen Tab [Tylenol] 1,000 mg PO Q6HR PRN #30 tablet 12/16/21 Ibuprofen [Motrin] 800 mg PO Q8H PRN 7 Days #21 tab 12/28/21 Allergies Allergy/AdvReac Type Severity Reaction Status Date / Time No Known Allergies Allergy Verified 12/09/21 11:46 Review of Systems ROS Statement: Those systems with pertinent positive or pertinent negative responses have been documented in the HPI. Review of Systems: CONST: Denies fever EYES: Denies blurry vision ENT: Denies nasal congestion C/V: Denies Chest pain RESP: Denies shortness of breath GI: Endorses abdominal pain : Denies dysuria SKIN: Denies rash. MSK: Denies joint pain. NEURO: Denies headache ROS Other: All systems not noted in ROS Statement are negative. Past Medical History Past Medical History: GERD/Reflux, Hyperlipidemia, Osteoarthritis (OA) Additional Past Medical History / Comment(s): diverticulitis w/perforation 2020 History of Any Multi-Drug Resistant Organisms: None Reported Past Surgical History: Bowel Resection, Tonsillectomy Additional Past Surgical History / Comment(s): sigmoid resection w/colostomy REVERSE OSTOMY Past Anesthesia/Blood Transfusion Reactions: No Reported Reaction Past Psychological History: No Psychological Hx Reported Smoking Status: Former smoker Past Alcohol Use History: Daily Past Drug Use History: None Reported - Past Family History Father Additional Family Medical History / Comment(s): leaky heart vavle Mother Family Medical History: Cancer Additional Family Medical History / Comment(s): lung ca. never smoked General Exam - General Exam Comments Initial Comments: General: Appears in mild distress secondary to abdominal pain. HEAD: Normal with no signs of head trauma. EYES: PERRLA, EOMI, conjunctiva normal, no discharge. ENT: Hearing grossly intact, normal oropharynx. RESPIRATORY: Clear breath sounds bilaterally. No wheezes, rales, or rhonchi. C/V: Regular rate and rhythm. S1 and S2 auscultated, no edema, peripheral pulses 2+ and intact throughout ABD: Abdomen is soft, nondistended. Tender to palpation in the right lower quadrant as well as right lower midline lateral to the incision. No guarding. No peritoneal signs. No rebound tenderness. EXT: Normal range of motion, no obvious deformity SKIN: No rashes or lesions observed on exposed skin. Incision appears to be healing well. No other signs of infection. No discharge. No erythema. No warmth. NEURO: Alert and oriented 4. No focal deficits. Limitations: no limitations Course Vital Signs 12/28/21 16:39 Temperature 98.1 F Pulse Rate 86 Respiratory 16 Rate Blood Pressure 129/81 O2 Sat by Pulse 94 L Oximetry Medical Decision Making - Medical Decision Making Based on the patient's presentation and physical exam, I'm concerned for possible surgical abdominal complications secondary to recent colostomy rever saman. Cannot rule out other intra-abdominal process at this time. Abdominal labs will be obtained. Urinalysis will be obtained. Abdominal x-ray will also be obtained initially. All these were completed with the patient was in triage. I will add on additional CT abdomen and pelvis. He will receive IV fluid hydration and analgesia. Vital signs within normal limits. He was in agreement with this plan. Initial workup obtained in triage revealed no significant findings on labs. They're all within acceptable limits. KUB x-ray reveals a nonacute abdomen. No other intra-abdominal process.Patient's additional laboratory studies of the lactic acid, urinalysis and pink headache enzymes were all within normal limits. CT abdomen and pelvis showed no acute intra-abdominal process. No acute change from prior CT. Reevaluation come patient's pain is improved. I did discuss with him the results of his imaging, laboratory studies. He expressed understanding that there is no clear cause for his current symptoms. Vital signs within normal limits. Surgical incision shows no signs of acute infection. It is clean. Imaging and workup are negative. I did reach out to Dr. Wylie is covering for Dr. Vizcarra was in agreement that the patient is stable for follow-up with Dr. Vizcarra tomorrow, as the patient does have a appointment with him already. I discussed this with the patient, and he was in agreement this plan. Has home analgesia medications. Strict return precautions were discussed. Postsurgical abdominal pain of unknown etiology is the patient's diagnosis. I will provide the patient with a prescription for Motrin. I instructed the patient to follow up with their PCP in the next 1-3 days. Patient will follow- up with his surgeon Dr. Vizcarra tomorrow . I explained that the patient should return to the emergency department if they experience any worsening symptoms. Strict return precautions were discussed with the patient. The patient expressed understanding of these instructions. I answered all questions that the patient had. The patient was discharged home in good condition with their prescriptions and follow up information. - Lab Data Result diagrams: 12/28/21 17:00 12/28/21 17:00 Lab Results 12/28/21 12/28/21 12/28/21 Range/Units 17:00 17:00 18:40 WBC 8.0 (3.8-10.6) k/uL RBC 4.49 (4.30-5.90) m/uL Hgb 14.7 (13.0-17.5) gm/dL Hct 43.0 (39.0-53.0) % MCV 95.8 (80.0-100.0) fL MCH 32.6 (25.0-35.0) pg MCHC 34.1 (31.0-37.0) g/dL RDW 12.1 (11.5-15.5) % Plt Count 279 (150-450) k/uL MPV 8.3 Neutrophils % 58 % Lymphocytes % 28 % Monocytes % 5 % Eosinophils % 7 % Basophils % 1 % Neutrophils # 4.7 (1.3-7.7) k/uL Lymphocytes # 2.2 (1.0-4.8) k/uL Monocytes # 0.4 (0-1.0) k/uL Eosinophils # 0.5 (0-0.7) k/uL Basophils # 0.1 (0-0.2) k/uL Sodium 140 (137-145) mmol/L Potassium 4.2 (3.5-5.1) mmol/L Chloride 107 (98-107) mmol/L Carbon Dioxide 22 (22-30) mmol/L Anion Gap 11 mmol/L BUN 14 (9-20) mg/dL Creatinine 0.72 (0.66-1.25) mg/dL Est GFR (CKD-EPI)AfAm >90 (>60 ml/min/1.73 sqM) Est GFR (CKD-EPI)NonAf >90 (>60 ml/min/1.73 sqM) Glucose 96 (74-99) mg/dL Plasma Lactic Acid Manuel (0.7-2.0) mmol/L Calcium 9.7 (8.4-10.2) mg/dL Total Bilirubin 0.4 (0.2-1.3) mg/dL AST 28 (17-59) U/L ALT 30 (4-49) U/L Alkaline Phosphatase 64 (38-126) U/L Total Protein 7.0 (6.3-8.2) g/dL Albumin 4.2 (3.5-5.0) g/dL Amylase (30-110) U/L Lipase (23-300) U/L Urine Color Yellow Urine Appearance Clear (Clear) Urine pH 5.5 (5.0-8.0) Ur Specific Smiley 1.014 (1.001-1.035) Urine Protein Negative (Negative) Urine Glucose (UA) Negative (Negative) Urine Ketones Negative (Negative) Urine Blood Negative (Negative) Urine Nitrite Negative (Negative) Urine Bilirubin Negative (Negative) Urine Urobilinogen <2.0 (<2.0) mg/dL Ur Leukocyte Esterase Negative (Negative) 12/28/21 12/28/21 Range/Units 18:40 18:40 WBC (3.8-10.6) k/uL RBC (4.30-5.90) m/uL Hgb (13.0-17.5) gm/dL Hct (39.0-53.0) % MCV (80.0-100.0) fL MCH (25.0-35.0) pg MCHC (31.0-37.0) g/dL RDW (11.5-15.5) % Plt Count (150-450) k/uL MPV Neutrophils % % Lymphocytes % % Monocytes % % Eosinophils % % Basophils % % Neutrophils # (1.3-7.7) k/uL Lymphocytes # (1.0-4.8) k/uL Monocytes # (0-1.0) k/uL Eosinophils # (0-0.7) k/uL Basophils # (0-0.2) k/uL Sodium (137-145) mmol/L Potassium (3.5-5.1) mmol/L Chloride (98-107) mmol/L Carbon Dioxide (22-30) mmol/L Anion Gap mmol/L BUN (9-20) mg/dL Creatinine (0.66-1.25) mg/dL Est GFR (CKD-EPI)AfAm (>60 ml/min/1.73 sqM) Est GFR (CKD-EPI)NonAf (>60 ml/min/1.73 sqM) Glucose (74-99) mg/dL Plasma Lactic Acid Manuel 1.1 (0.7-2.0) mmol/L Calcium (8.4-10.2) mg/dL Total Bilirubin (0.2-1.3) mg/dL AST (17-59) U/L ALT (4-49) U/L Alkaline Phosphatase (38-126) U/L Total Protein (6.3-8.2) g/dL Albumin (3.5-5.0) g/dL Amylase 58 (30-110) U/L Lipase 78 (23-300) U/L Urine Color Urine Appearance (Clear) Urine pH (5.0-8.0) Ur Specific Smiley (1.001-1.035) Urine Protein (Negative) Urine Glucose (UA) (Negative) Urine Ketones (Negative) Urine Blood (Negative) Urine Nitrite (Negative) Urine Bilirubin (Negative) Urine Urobilinogen (<2.0) mg/dL Ur Leukocyte Esterase (Negative) - EKG Data -: EKG Interpreted by Me EKG Comments: 12-lead Electrocardiogram Interpretation Note EKG was reviewed and interpreted by myself. 12-lead ECG performed at 1650 is interpreted by me as revealing normal sinus rhythm at a rate of 81 beats per minute. Rice is normal.. ID Intervals 153 ms, QRS duration is 97 ms, QTc is 430 ms.. There were no ST or T wave abnormalities to suggest myocardial ischemia or injury. R wave progression across the precordium was satisfactory. By my interpretation this EKG is non-diagnostic for acute ischemia. Disposition Clinical Impression: Postoperative abdominal pain, Abdominal pain of unknown cause Disposition: HOME SELF-CARE Condition: Good Instructions (If sedation given, give patient instructions): Abdominal Pain (ED) Prescriptions: Ibuprofen [Motrin] 800 mg PO Q8H PRN 7 Days #21 tab PRN Reason: Pain Is patient prescribed a controlled substance at d/c from ED?: No Referrals: Claus Vizcarra MD [Primary Care Provider] - 1-2 days Time of Disposition: 20:25
[2021-12-28 19:06] LABS: Appearance,Urine Clear (Clear); Bilirubin,Urine Negative (Negative); Blood,Urine Negative (Negative); Color,Urine Yellow; Glucose,Urine (UA) Negative (Negative); Ketones,Urine Negative (Negative); Leukocyte Esterase,Urine Negative (Negative); Nitrite,Urine Negative (Negative); PH, Urine 5.5 (5.0-8.0); Protein,Urine Negative (Negative); Specific Gravity,Urine 1.014 (1.001-1.035); Urobilinogen,Urine <2.0 mg/dL (<2.0)
[2021-12-28 19:12] LABS: Amylase 58 U/L (30-110); Lipase 78 U/L (23-300)
--- NOTE | 2021-12-28 20:07 | CT ---
EXAMINATION TYPE: CT abdomen pelvis w con DATE OF EXAM: 12/28/2021 COMPARISON: 02/18/2021 HISTORY: post op SB resection reversal CT DLP: 1076 mGycm Automated exposure control for dose reduction was used. CONTRAST: Performed with IV Contrast, patient injected with 100 mL of Isovue 370. Images obtained from the diaphragm to the floor of the pelvis with IV contrast. There is mild subsegmental atelectasis at the lung bases. There is hiatal hernia. Heart size is shonda l. No pericardial effusion. There are multiple small cysts in the liver up to 1.5 cm. Spleen is intact. No pancreatic mass. Stoma ch is intact. Gallbladder appears normal. The bile ducts are not dilated. There is no adrenal mass. Kidneys show satisfactory contrast opacification. No hydronephrosis. There is 3 cm cortical cyst anterior left kidney. There are bilateral small renal calculi up to 3 mm. There are bilateral renal parapelvic cysts. No retroperitoneal adenopathy. Ureters are nondilated. Bladder distends smoothly. No inguinal hernia. No pelvic mass. No free fluid in the pelvis. There is no mesenteric edema. No ascites or free air. No sign of a bowel obstruction. There are skin sonny over the umbilicus. There is fluid and fat stranding in the left anterior subcutaneous abdome n consistent with recent surgery. There is a lumbar levo rotoscoliotic deformity. No compression fracture. The hip joints are intact. T he bony pelvis is intact. IMPRESSION: Previous surgery. No bowel obstruction. No free air. Hiatal hernia. Nonobstructing renal calculi. No evidence of a bowel obstruction. No complicating proc ess seen. Multiple hepatic cysts. No adverse change compared to old exam.
[2021-12-28] MEDS ORDERED: IBUPROFEN 800 MG TAB PO STA (20:34)
== END 2021-12-28 21:31 | disposition home or self-care (01) ==
LOC: EC 15:49
DX: G89.18 Other acute postprocedural pain (principal); R10.9 Unspecified abdominal pain; K21.9 Gastro-esophageal reflux disease without esophagitis; E78.5 Hyperlipidemia, unspecified; M19.90 Unspecified osteoarthritis, unspecified site; Z87.891 Personal history of nicotine dependence; Z79.899 Other long term (current) drug therapy
CPT/HCPCS: 36415; 93005; 80053; 82150; 83605; 83690; 85025; 81003; 74018; 74177; 99284; 96374; 96376; 96361 ×2; J2270; Q9967

== ENCOUNTER 2022-03-27 17:41 | Emergency (ER) | payer MEDICARE ==
[2022-03-27 17:48] VITALS: BP 138/70; PULSE 100; RESP 20; TEMP 97
[2022-03-27] MEDS ORDERED: PROPARACAINE 0.5% OPHTH DROPS 15 ML BTL RIGHT EYE STA (18:16)
--- NOTE | 2022-03-27 19:31 | ED ---
Eye Problem HPI <Pearl Willett - Last Filed: 03/27/22 19:36> - General Source: patient Mode of arrival: ambulatory Limitations: no limitations <Preeti Cleaning - Last Filed: 03/27/22 22:39> - General Chief complaint: Eye Problems Stated complaint: Retinal Detachment,Sent by [employer] Time Seen by Provider: 03/27/22 18:08 - History of Present Illness Initial comments: 71-year-old male past history of diverticulitis, hyperlipidemia, reflux who presents to the emergency department reporting floaters in his right eye. Patient has long-standing history of visual floaters. He follows with Dr. Shoemaker. He states that on he began having large black spots in his vision in his right eye. He went into Dr. Booker office on Monday. He had a full ocular exam performed by his colleague. There is no acute findings and patient was discharged. He reports that the visual floaters have persisted. Earlier today the patient noted that he saw what looked like paint dripping across to his right eye. Visual disturbance only last for approximately 10 minutes and then resolved. He continues to have the enlarged floaters which move with ocular movement. He denies any headaches. No painful vision changes. Vision around the floaters is normal. He denies any head trauma. No history of retinal or vitreous detachment. No history of glaucoma. No unilateral numbness or weakness. No other alleviating, precipitating or modifying factors (Preeti Cleaning) - Related Data Home Medications Medication Instructions Recorded Confirmed Atorvastatin [Lipitor] 10 mg PO HS 03/19/19 12/07/21 Previous Rx's Medication Instructions Recorded Acetaminophen Tab [Tylenol] 1,000 mg PO Q6HR PRN #30 tablet 12/16/21 Ibuprofen [Motrin] 800 mg PO Q8H PRN 7 Days #21 tab 12/28/21 Allergies Allergy/AdvReac Type Severity Reaction Status Date / Time No Known Allergies Allergy Verified 12/09/21 11:46 Review of Systems ROS Other: All systems not noted in ROS Statement are negative. <Pearl Willett - Last Filed: 03/27/22 19:36> ROS Other: All systems not noted in ROS Statement are negative. <Preeti Cleaning - Last Filed: 03/27/22 22:39> ROS Statement: Those systems with pertinent positive or pertinent negative responses have been documented in the HPI. Past Medical History Past Medical History: GERD/Reflux, Hyperlipidemia, Osteoarthritis (OA) Additional Past Medical History / Comment(s): diverticulitis w/perforation 2020 History of Any Multi-Drug Resistant Organisms: None Reported Past Surgical History: Bowel Resection, Tonsillectomy Additional Past Surgical History / Comment(s): sigmoid resection w/colostomy REVERSE OSTOMY Past Anesthesia/Blood Transfusion Reactions: No Reported Reaction Past Psychological History: No Psychological Hx Reported Smoking Status: Former smoker Past Alcohol Use History: Daily Past Drug Use History: None Reported - Past Family History Father Additional Family Medical History / Comment(s): leaky heart vavle Mother Family Medical History: Cancer Additional Family Medical History / Comment(s): lung ca. never smoked <Preeti Cleaning - Last Filed: 03/27/22 22:39> General Exam Limitations: no limitations <Preeti Cleaning - Last Filed: 03/27/22 22:39> Course Vital Signs 03/27/22 17:45 Temperature 97 F L Pulse Rate 100 Respiratory 20 Rate Blood Pressure 138/70 O2 Sat by Pulse 98 Oximetry Medical Decision Making <Preeti Cleaning - Last Filed: 03/27/22 22:39> - Medical Decision Making Was pt. sent in by a medical professional or institution? @ -[by , PA, [facility], urgent care, hospital, or [facility]] Did you speak to anyone other than the patient for history? @ -[EMS, parent, family, police, friend?] Did you review nursing and triage notes? @ -[agree or disagree, why?] Were old charts reviewed? @ -[outside hosp., previous admissions, EMS record, old EKG, old radiological studies, urgent care reports/EKGs, [facility] records?] Differential Diagnosis? @ -[chest pain, altered mental status abdominal pain women, abdominal pain men, vaginal bleeding, weakness, fever, dyspnea, syncope, headache, dizziness, GI bleed, back pain, seizure] EKG interpreted by me (3pts min.)? @ -[none] X-rays interpreted by me (1pt min.)? @ -[none] CT interpreted by me (1pt min.)? @ -[none] U/S interpreted by me (1pt. min.)? @ -[none] What testing was considered but not performed? (CT, X-rays, U/S, labs)? Why? @ [CT, X-rays, U/S, labs? Why?] What meds were considered but not given? Why? @ -[none] Did you discuss the management of the patient with other professionals? @ -[professionals i.e. Dr, PA, S[facility]IER, Lab, RT, Psych Nurse, Aged Or Disabled Care Worker, Basket Machine Operator, Teacher, Iridologist, shoe parts caser? Give summary] Did you reconcile home meds? @ -[none] Was smoking cessation discussed for >3mins.? @ -[none] Was critical care preformed (if so, how long)? @ -[none] Were there social determinants of health that impacted care today? How? (Homelessness, low income, unemployed, alcoholism, drug addiction, transportation, low edu. Level, literacy, decrease access to med. care, alf, rehab)? @ -[Homelessness, low income, unemployed, alcoholism, drug addiction, transportation, low edu. Level, literacy, decrease access to med. care, alf, rehab?] Was there de-escalation of care discussed even if they declined? (Discuss DNR or withdrawal of care, Hospice)? @ -[Discuss DNR or withdrawal of care, Hospice?] What co-morbidities impacted this encounter? (DM, HTN, Smoking, COPD, CAD, Cancer, CVA, Hep., AIDS, mental health diagnosis, sleep apnea, morbid obesity)? @ -[DM, HTN, Smoking, COPD, CAD, Cancer, CVA, Hep., AIDS, mental health diagnosis, sleep apnea, morbid obesity?] Was patient admitted / discharged? @ Upon arrival patient was placed into room 18. A thorough history and physical exam was performed. I did use proparacaine eye drops to numb the patient's eye. Pressures are obtained. Visual acuity is performed. I did perform ultrasound of the patient's right eye which does not demonstrate any acute retinal detachment. I did call and speak with Dr. Vides as he is the fixed wing aircraft crew chief emergency response officer. Has no further recommendations other than following up in office tomorr ow. I then called and spoke with Dr. Shoemaker even though he is not emergency response officer. The patient does follow with him. He does return our pages and I am able to talk to him about the patient. Reports that the patient has chronic issues with visual floaters. States that the patient can be seen again in the office tomorrow. Patient is notified that he needs to call the office in the morning to make an appointment. Return tonight for any new or worsening symptoms. Patient agreed with the plan and was discharged home in stable condition Undiagnosed new problem with uncertain prognosis? @ -[none] Drug Therapy requiring intensive monitoring for toxicity (Heparin, Nitro, Insulin, Cardizem)? @ -[none] Were any procedures done? @ -[none] Diagnosis/symptom? @ -[default] Acute, or Chronic, or Acute on Chronic? @ -[default] Uncomplicated (without systemic symptoms) or Complicated (systemic symptoms)? @ -[default] Side effects of treatment? @ -[none] Exacerbation, Progression, or Severe Exacerbation] @ -[no] Poses a threat to life or bodily function? @ -[no] (Preeti Cleaning) Disposition <Pearl Willett - Last Filed: 03/27/22 19:36> Is patient prescribed a controlled substance at d/c from ED?: No Time of Disposition: 19:31 <Preeti Cleaning - Last Filed: 03/27/22 22:39> Clinical Impression: Visual disturbance Disposition: HOME SELF-CARE Condition: Stable Instructions (If sedation given, give patient instructions): Visual Floaters ( ED) Additional Instructions: Dr. Shoemaker would like you to call the office in the morning to make an appointment. Return for any new or worsening symptoms Referrals: Pritesh Walls MD [Primary Care Provider] - 1-2 days Roque Shoemaker MD [STAFF PHYSICIAN] - 1-2 days
== END 2022-03-27 19:42 | disposition home or self-care (01) ==
LOC: EC 17:41
DX: H53.9 Unspecified visual disturbance (principal); E78.5 Hyperlipidemia, unspecified; Z87.891 Personal history of nicotine dependence
CPT/HCPCS: 99284

== ENCOUNTER → 2022-04-15 | Outpatient (CLI) | payer MEDICARE ==
--- NOTE | 2022-04-15 15:47 | MR ---
EXAMINATION TYPE: MR brain wo con DATE OF EXAM: 04/15/2022 COMPARISON: Prior MRI brain November 28, 2016. Prior CT brain November 19, 2016. HISTORY: Eye Flashes. Migraine with aura. TECHNIQUE: Multiplanar, multisequence imaging of the brain and brainstem is performed without IV cont rast. FINDINGS: Diffusion weighted images demonstrate no evidence of a recent infarct or other diffusion abnormality. There is mild to moderate ventricular and sulcal prominence with most prominent sulcal effacement ove r the bilateral high frontal and parietal lobes redemonstrated. Some scattered tiny areas of T2 hyper intensity are redemonstrated bilaterally. Approximately 5 lesions again seen in the bilateral frontal lobes. Midline structures demonstrate normal morphology. The craniocervical junction appears within normal limits. Normal vascular flow voids are present. There is suspected hypoplastic right A1 segment with filling of the right A2 segment due to patent anterior communicating artery. The visualized sinuses a re clear and the globes are intact. IMPRESSION: Mild to moderate diffuse cerebral atrophy greatest over the bilateral frontal and parieta l lobes redemonstrated. Mild to minimal nonspecific white matter changes again seen fairly stable 2016 study. Differential includes altered vascular mechanics related to product of migraine headach es. No significant change from prior MRI.
== END | disposition home or self-care (01) ==
LOC: RADMRIMAIN 14:23
PROVIDERS: ATTEND Family Medicine
DX: G43.109 Migraine with aura, not intractable, without status migrainosus (principal); G31.9 Degenerative disease of nervous system, unspecified; R90.82 White matter disease, unspecified
CPT/HCPCS: 70551

== ENCOUNTER → 2023-06-30 | Outpatient (CLI) | payer MEDICARE ==
--- NOTE | 2023-07-03 11:12 | MR ---
EXAMINATION TYPE: MR lumbar spine wo con DATE OF EXAM: 06/30/2023 COMPARISON: None HISTORY: 72-year-old male M51.36, Low back pain into right side, Scoliosis since TECHNIQUE: Multiplanar, multisequence images of the lumbar spine were acquired without IV contrast. FINDINGS: There is a severe levoconvex scoliosis present. The degree of spinal curvature causes difficulty in a ssessment on the sagittal images. Allowing for the curvature, vertebral body heights appear to be pre served. There is advanced hypertrophic facet arthropathy present throughout especially along the sides of con cavity with a trace grade 1 anterolisthesis at L4-L5. Remaining alignment is maintained. Modic type II endplate changes present throughout. Some mixed Modic type II and type III endplate katy nges present towards the right at L3-L4. Conus medullaris is normal. There is moderate degenerative disc disease throughout with desiccated and bulging discs. Disc bulges impress on the ventral thecal sac at multiple levels. At L3-L4, there is overall moderate spinal canal stenosis. No significant spinal canal stenosis at ot her levels. On the left, there is moderate neuroforaminal stenosis at both L4-L5 and L5-S1. Left lateral disc bul ges may abut the left-sided extraforaminal L4 and L5 nerve roots at their respective levels. On the right, at L3-L4, there is a large right lateral disc osteophyte complex and possible severe ne uroforaminal stenosis. Moderate to severe at both L1-L2 and L2-L3. IMPRESSION: 1. Severe levoconvex scoliosis making assessment limited due to the degree of spinal curvature. There is moderate multilevel degenerative disc disease and hypertrophic facet arthropathy with trace grade 1 anterolisthesis at L4-L5. 2. Changes result in a moderate focal spinal canal stenosis at L3-L4. Severe right-sided neuroforamin al stenosis at this level. 3. Moderate to severe right-sided neural foraminal narrowing at both L1-L2 and L2-L3. 4. Moderate left-sided neuroforaminal stenosis at L4-L5 and L5-S1.
== END | disposition home or self-care (01) ==
LOC: RADMRIMAIN 19:13
PROVIDERS: ATTEND Orthopaedic Surgery
DX: M51.36 Other intervertebral disc degeneration, lumbar region (principal); Q67.5 Congenital deformity of spine; M47.816 Spondylosis without myelopathy or radiculopathy, lumbar region; M99.73 Connective tissue and disc stenosis of intervertebral foramina of lumbar region; M43.16 Spondylolisthesis, lumbar region; M48.061 Spinal stenosis, lumbar region without neurogenic claudication
CPT/HCPCS: 72148

== ENCOUNTER → 2024-03-22 | Outpatient (CLI) | payer MEDICARE ==
[2024-03-22 20:01] LABS: Blood Urea Nitrogen 15.6 mg/dL (9.0-27.0); Carbon Dioxide 27.4 mmol/L (21.6-31.8); Chloride 108 mmol/L (96-109); Potassium 4.2 mmol/L (3.5-5.5); Sodium 145 mmol/L (135-145)
[2024-03-22 20:15] LABS: HCT 45.5 % (39.6-50.0); MCH 32.1 pg (27.0-32.0); MCV 97.2 FL (80.0-97.0); Mean Platelet Volume 11.5 FL (9.5-12.2); NRBC Per 100 WBC 0 X 10*3/uL (0.00-0.01); Platelet Count 177 X 10*3/uL (140-440); RBC 4.68 X 10*6/uL (4.40-5.60); RDW 12.4 % (11.5-14.5); WBC 6.26 X 10*3/uL (4.50-10.00)
== END | disposition home or self-care (01) ==
LOC: LABPAT 14:20
PROVIDERS: ATTEND Internal Medicine
DX: Z01.818 Encounter for other preprocedural examination (principal); R06.02 Shortness of breath
CPT/HCPCS: 80051; 82565; 84520; 85027

== ENCOUNTER 2024-04-01 10:10 | Day surgery (SDC) | payer MEDICARE ==
[~2024-04-01 10:10] MED LIST changes: -ACETAMINOPHEN TAB 500 MG TAB PO PRN; +ALPRAZolam 0.25 MG TAB PO PRN; +ALPRAZolam 0.5 MG TAB PO PRN; -ALVIMOPAN 12 MG CAPSULE PO PRN; -DEXAMETHASONE SOD PHOSPHATE 4 MG/ML 1 ML VIAL IV ONE; +HEPARIN SODIUM,PORCINE (1 ML) 2,500 UNIT in SODIUM CHLORIDE 0.9% 250 ML IRRIGATION PRN; +HEPARIN SODIUM,PORCINE 10,000 UNIT in SODIUM CHLORIDE 0.9% 1,000 ML IRRIGATION PRN; -HEPARIN SODIUM,PORCINE/PF 5,000 UNIT/0.5 ML SYRINGE SQ PRN; -LIDOCAINE 1% (10MG/ML) FOR IV START INTRADERMA PRN; -MIDAZOLAM 2 MG/2 ML VIAL IV PRN; +NITROGLYCERIN SL TABS 0.4 MG TAB SUBLINGUAL PRN; -ONDANSETRON 4 MG/2 ML VIAL IVP ONE; -metroNIDAZOLE-NS PMX 500 MG in SALINE 1 100ML.BAG IVPB PRN
[2024-04-01 10:51] VITALS: RESP 16; TEMP 99.1
[2024-04-01] MEDS: SODIUM CHLORIDE 0.9% 1,000 ML in EMPTY BAG 1 BAG IV SCH (10:51)
[2024-04-01] MEDS: ASPIRIN 325 MG TAB PO STA (10:51)
[2024-04-01] MEDS: IV FLUID CONTINUATION 1,000 ML IV ONE (10:52)
[2024-04-01] MEDS: fentaNYL (PF) 50 MCG/ML 2 ML AMP IVP ONE ×2 (11:49→11:54)
[2024-04-01] MEDS: BENZOCAINE SPRAY 1 CAN TOPICAL ONE (11:49)
[2024-04-01] MEDS: MIDAZOLAM 2 MG/2 ML VIAL IVP ONE ×2 (11:49→11:54)
[2024-04-01] MEDS: LIDOCAINE 1% INJ 10MG/ML (20 ML MDV) SQ ONE (12:12)
[2024-04-01] MEDS: HEPARIN SODIUM,PORCINE (1 ML) 2,500 UNIT in SODIUM CHLORIDE 0.9% 250 ML IRRIGATION ONE (12:14)
[2024-04-01] MEDS: HEPARIN SODIUM (1,000 UNIT/ML) 1,000 UNIT in SODIUM CHLORIDE 0.9% 1,000 ML IRRIGATION ONE (12:14)
[2024-04-01] MEDS: SODIUM CHLORIDE 0.9% 1,000 ML IV ONE (12:14)
[2024-04-01] MEDS: VERAPAMIL SYRINGE (5 MG/10 ML) INTRAARTER ONE (12:16)
[2024-04-01] MEDS: HEPARIN SODIUM 1,000 UN/ML (10ML VL) IVP ONE (12:25)
[2024-04-01] MEDS: IOPAMIDOL-370 100ML BTL INJ ONE (12:30)
[2024-04-01 12:34] LABS: O2 Sat Blood Gas 77.1 %
[2024-04-01 12:35] LABS: O2 Sat Blood Gas 91.6 %
[2024-04-01 12:37] LABS: O2 Sat Blood Gas 71.5 %
[2024-04-01] MEDS: ACETAMINOPHEN TAB 500 MG TAB PO PRN (15:30)
--- NOTE | 2024-04-01 15:46 | P.TEE ---
Description of Procedure(s): Procedure performed: Transesophageal Echocardiogram with color flow doppler, pulsed wave doppler and continuous wave doppler, moderate conscious sedation Moderate conscious sedation: Moderate conscious sedation was supplied with direct supervision of myself using Versed and Fentanyl. Complications: none Indications: mitral regurgitation PROCEDURE: After the risks, benefits and alternatives of the above mentioned procedure was explained in detail with the patient, informed consent was obtained. Patient was brought to the lab in a fasting state. Patient was given IV Versed and Fentanyl for sedation. The throat was sprayed with Hurricane to anesthetize the throat. A lubricated Omni probe was then introduced into the esophagus and stomach and multiple views were obtained. 2D echo with color flow doppler, pulsed wave doppler and continuous wave doppler was utilized. Agitated saline bubbles were injected to assess for any intra-atrial shunt. The probe was then removed. Patient tolerated the procedure well. Patient was transferred to the post procedure area in stable and satisfactory condition. FINDINGS: 1. The aortic valve is tricuspid and function normally with trace AI. 2. The mitral valve has a prolapse of P2 without flail. There is severe mitral regurgitation with PISA radius 1.5cm at a Nyquist of 44 3. Tricuspid valve appears to be normal. 4. The interatrial septum is intact. No evidence of PFO. There is late shunting noted most consistent with pulmonary AVM. 5. Left atrial appendage is free of clot. 6. Left ventricular EF 55-60%
--- NOTE | 2024-04-01 15:52 | P.CARDCATH ---
Description of Procedure: PROCEDURES PERFORMED: Left and right heart catheterization, bilateral coronary angiography, ultrasound guided arterial access INDICATION: Mitral regurgitation CONSENT:The risks, benefits and alternative therapies for the above-mentioned procedure and for both sedation/analgesia as well as necessary blood product administration, if indicated, as they pertain to this patient were discussed with the patient. The patient has indicated understanding and acceptance of the risks and procedures discussed. PROCEDURE: After the risks, benefits and alternatives of the above mentioned procedure explained in detail with the patient, informed consent was obtained. Patient was taken to the catheterization lab and prepped and draped in usual fashion. Ultrasound guidance was used to assess for arterial access. 1% lidocaine was used to anesthetize the right radial artery and brachial area. A 6-Spanish sheath was placed in the right radial artery and additional sheath was placed in the right brachial vein using modified Seldinger technique and ultrasound guidance. A 6Fr Rathdrum Sherry catheter was placed in the RA, RV, PA and PCWP postions and pressure measurements and O2 saturations were performed. Left coronary angiography was performed with a 5-Spanish JL 3.5 catheter and right coronary angiography was performed with a 5-Spanish FR5 catheter in various views. A 5-Spanish FR5 catheter was inserted into the left ventricle and pressure measurements were obtained. The right radial sheath was removed and a TR band was placed with hemostasis achieved. The patient tolerated the procedure well. Patient was transported back to the post catheterization holding area in stable condition. Conscious Sedation: Patient was monitored under the direct supervision of myself for conscious sedation using Versed and fentanyl for a total duration of 23 minutes HEMODYNAMICS: Ao: 124/79 LV: 134/10, LVEDP 18 PCWP: 13 PA: 31/13 RV: 34/9 RA: 7 PA oxygen saturation: 77% RA oxygen saturation: 72% Right radial oxygen saturation: 92% CO by thermodilution: 7.3 L/min CI by thermodilution: 3.67 L/min/m2 CO by ARMANDO: 6.9 L/min CI by ARMANDO: 3.5 L/min/m2 SELECTIVE CORONARY ARTERIOGRAPHY: LEFT MAIN: The left main is a large caliber vessel which bifurcates into the LAD and circumflex. There is no significant stenosis. LEFT ANTERIOR DESCENDING CORONARY ARTERY: LAD is a large caliber vessel which wraps around to the apex. There is no significant stenosis. LEFT CIRCUMFLEX CORONARY ARTERY: Left circumflex is a moderate caliber vessel wi thout significant stenosis. RIGHT CORONARY ARTERY: The right coronary artery is a large caliber vessel which gives off a PDA and PLV branch and is the dominant vessel. There is no significant stenosis. FINAL IMPRESSION: 1. Normal coronary arteries as described above. 2. Normal right sided filling pressures and elevated left sided filling pressures 3. Normal CO/CI PLAN: 1. Aggressive risk factor modification per most recent ACC/AHA guidelines. 2. Follow-up in the office in 1-2 weeks.
[2024-04-01 16:13] VITALS: BP 145/75; PULSE 79
== END 2024-04-01 16:17 | disposition home or self-care (01) ==
LOC: CATHCVL 10:10
PROVIDERS: ATTEND Internal Medicine
DX: I34.0 Nonrheumatic mitral (valve) insufficiency (principal); Z87.891 Personal history of nicotine dependence; Z79.899 Other long term (current) drug therapy
CPT/HCPCS: 93312; 93320; 93325; 93460; 85018; 82810; 99152; 99153; J2250; J1644 ×2; J2003; J3010; Q9967